=== PATIENT | female | born 1960 | race Caucasian/White ===

== ENCOUNTER 2020-05-18 13:43 | Outpatient (REF) | payer SELFPAY | END 2020-05-18 13:44 | disposition home or self-care (01) | LOC: HO.HAP 13:43 | PROVIDERS: Visit Provider Internal Medicine | DX: Z46.1 Encounter for fitting and adjustment of hearing aid (principal) | CPT/HCPCS: V5267 ==

== ENCOUNTER 2020-05-26 07:40 | Outpatient (REF) | payer OTHER, SELFPAY ==
[2020-05-26 11:46] LABS: Alanine Aminotransferase 9 U/L (0-31); Anion Gap 16 (12-20); Aspartate Amino Transferase 14 U/L (5-31); Blood Urea Nitrogen 15 mg/dL (9-16); Calcium 9.1 mg/dL (8.4-10.2); Carbon Dioxide 26 mmol/L (22-29); Chloride 104 mmol/L (96-108); Cholesterol 151 mg/dL; Estimated Glomerular Filt Rate > 60; Glucose Fasting 131 mg/dL (60-99); HDL Cholesterol 50 mg/dL; LDL Cholesterol Calculated 67 mg/dl; Potassium 3.9 mmol/l (3.3-5.1); Sodium 142 mmol/L (135-145); Triglycerides 171 mg/dL
[2020-05-26 11:57] LABS: Vitamin D 25-OH Total 50.3 ng/mL (>30)
== END 2020-05-26 07:41 | disposition home or self-care (01) ==
LOC: HO.HMGCLDS 07:40
PROVIDERS: PCP Internal Medicine; Visit Provider Internal Medicine
DX: E11.29 Type 2 diabetes mellitus with other diabetic kidney complication (principal); I10 Essential (primary) hypertension; E78.2 Mixed hyperlipidemia; Z78.0 Asymptomatic menopausal state
CPT/HCPCS: 80048; 80061; 82306; 84450; 84460

== ENCOUNTER 2020-06-13 08:58 | Outpatient (REF) | payer OTHER, SELFPAY ==
--- NOTE | 2020-06-14 11:35 | MHC.AU.P13 ---
Adult Audiological Evaluation Date of Visit: 06/13/20 Laborer Steel Handling Used: Not Applicable Reason for Appointment: Audiologic re-evaluation to determine possible change in hearing ability prior to obtaining new right hearing aid. Previous Hearing Test Results: [facility] 04/29/2019 Bilateral moderate to severe sensorineural hearing loss with the right ear being poorer than the left. Medical History: Medical History: Diabetes High Blood Pressure Hearing Instrument History- Right Ear: Vp Publisher Development: [employer] Model: DeNAo V 90 - canal Serial Number: [id number] Battery Size: 312 Warranty: 09/11/2020 Service Plan: Repair Dispensed By: [facility] Date of Fittin12/14/2015 Otoscopy: Right Ear: Partially occluded with cerumen Left Ear: Partially occluded with cerumen Tympanometry: Right Ear: Normal Middle Ear System (Type A) Left Ear: Normal Middle Ear System (Type A) Hearing Evaluation: Transducer(s) Used: Insert Earphones Bone Conduction Method: Conventional Audiometry Stimuli Used: Pure Tones Right Ear: Description of Hearing: Moderately-severe to severe sensorineural hearing loss Left Ear: Description of Hearing: Moderate to moderately-severe sensorineural hearing loss Speech Recognition Threshold (SRT): Method Used: Monitored Live Voice Stimuli Used: Spondee Words Right Ear: 50 dB HL Left Ear: 50 dB HL Word Discrimination: Method: Recorded Lists Word Lists Used: NU-6 Right Ear: 92% at a listening level of 80 dB HL Left Ear: 92% at a listening level of 80 dB HL Comparison: Compared to the most recent evaluation: Hearing is stable. Recommendations: Recommendations: Audiological re-evaluation in one year. Trial with new right amplification is recommended. Medical clearance from a physician is required before fitting. Hearing Aid Fitting will be scheduled when all materials arrive. Recommendations (Other): As patient is concerned her current hearing aid recently required repair, she wants to obtain a new right hearing aid before the current aid stops functioning. Diagnosis: Primary Diagnosis: H90.3 Bilateral Sensorineural Hearing Loss Services Performed: Services Performed: Comprehensive Audiological Evaluation (CPT 06691) Tympanometry (CPT 53699) Signature: Provider: Jhoana Hernandez, [facility]
--- NOTE | 2020-06-14 11:47 | MHC.AU.P13 ---
Hearing Aid Evaluation- Right Ear Date of Visit: 06/13/20 Welt Butter Hand Used: Not Applicable Description of Hearing: Bilateral moderate to severe sensorineural hearing loss Summary: Patient currently has a Right Phonak Virto V 90 -canal hearing aid obtained in 2016. The aid recently required repair and patient wants to obtain a new hearing aid before the current aid stops functioning. Discussed binaural amplification; however, patient continues to want only the right aid and the same style. Discussed if she wants the ITC bluetooth capable and showed the difference in size. Patient decided she wants the smaller non-wireless aid and understands she will not be able to have remote programming performed. Took an impression of the right ear without complication. Hearing Instrument Selection: Right Ear: Veterinarian Helper: Phonak Model: Virto M 90 312 [address] O Battery Size: 312 Color: [place] Process Validation Engineer: Power Recommendations: Recommendations: Fitting will be scheduled when all materials have arrived. A signed medical clearance form is required from a physician. Diagnosis Code(s): Primary Diagnosis: H90.3 Bilateral Sensorineural Hearing Loss Services Performed: Hearing Aid Evaluation and Impression: Assorted Hearing Aid Service: No Charge Visit Signature: Provider: Jhoana Hernandez, CCC-A
== END 2020-06-13 08:59 | disposition home or self-care (01) ==
LOC: HO.SH 08:58
PROVIDERS: PCP Internal Medicine; Visit Provider Internal Medicine
DX: H90.3 Sensorineural hearing loss, bilateral (principal)
CPT/HCPCS: 92557; 92567

== ENCOUNTER 2020-07-08 10:02 | Outpatient (REF) | payer SELFPAY | END 2020-07-08 10:03 | disposition home or self-care (01) | LOC: HO.HAP 10:02 | PROVIDERS: PCP Internal Medicine; Referring Provider Internal Medicine; Visit Provider Internal Medicine | DX: Z46.1 Encounter for fitting and adjustment of hearing aid (principal); H90.3 Sensorineural hearing loss, bilateral | CPT/HCPCS: V5255 ==

== ENCOUNTER 2020-07-20 10:40 | Outpatient (REF) | payer OTHER, SELFPAY | END 2020-07-20 10:41 | disposition home or self-care (01) | LOC: HO.LAB 10:40 | PROVIDERS: Visit Provider Nurse Practitioner Family | DX: R31.0 Gross hematuria (principal) | CPT/HCPCS: 87086 ==

== ENCOUNTER 2020-07-25 10:23 | Outpatient (REF) | payer SELFPAY | END 2020-07-25 10:24 | disposition home or self-care (01) | LOC: HO.HAP 10:23 | PROVIDERS: Visit Provider Internal Medicine | DX: Z13.89 Encounter for screening for other disorder (principal) ==

== ENCOUNTER 2020-08-05 10:30 | Outpatient (REF) | payer OTHER, SELFPAY ==
--- NOTE | 2020-08-05 10:33 | MM_ITS ---
EXAMINATION: MM SCREENING DIGITAL BREAST TOMOSYNTHESIS, BILATERAL CLINICAL INFORMATION: Screening. Asymptomatic. The lifetime risk of breast cancer based on the Tyrer-Cuzick Model is 14%. COMPARISON: Mammography: 07/17/2019, 07/14/2018, 06/24/2017 TECHNIQUE: Digital breast tomosynthesis is performed in both the craniocaudal and mediolateral oblique views along with computer-aided detection (CAD). Synthesized 2D images are generated from the tomosynthesis. Additional exaggerated right CC view is provided. FINDINGS: There are scattered areas of fibroglandular density (ACR BI-RADS breast composition Category b). There are scattered bilateral asymmetries, stable from prior studies. Scattered bilateral benign calcifications are again seen. There is a biopsy clip marker again noted central right breast just lateral to midline. Neither breast shows interval mass or developing density or architectural abnormality. No significant changes. MM/MM tomosynthesis screening BI IMPRESSION: No significant changes from prior studies. ASSESSMENT: BI-RADS 2: Benign RECOMMENDATION: Routine annual mammography screening. This patient's information was entered into a reminder system with a target due date for their next mammogram.
== END 2020-08-05 10:31 | disposition home or self-care (01) ==
LOC: HO.MAMMO 10:30
PROVIDERS: PCP Internal Medicine; Visit Provider Internal Medicine
DX: Z12.31 Encounter for screening mammogram for malignant neoplasm of breast (principal)
CPT/HCPCS: 77063; 77067

== ENCOUNTER 2020-08-17 13:35 | Outpatient (REF) | payer SELFPAY | END 2020-08-17 13:36 | disposition home or self-care (01) | LOC: HO.HAP 13:35 | PROVIDERS: Visit Provider Internal Medicine | DX: Z13.89 Encounter for screening for other disorder (principal) ==

== ENCOUNTER 2020-09-13 10:00 | Outpatient (REF) | payer SELFPAY | END 2020-09-13 10:01 | disposition home or self-care (01) | LOC: HO.HAP 10:00 | PROVIDERS: Visit Provider Internal Medicine | DX: Z13.89 Encounter for screening for other disorder (principal) ==

== ENCOUNTER 2020-11-25 07:39 | Outpatient (REF) | payer OTHER, SELFPAY ==
[2020-11-25 11:52] LABS: Estimated Average Glucose 126 mg/dL
[2020-11-25 12:08] LABS: Creatinine Urine 153.98 mg/dL; Microalbum/Creatinine Ratio Ur 81.8 ug/mg cr
[2020-11-25 12:15] LABS: Vitamin D 25-OH Total 35.3 ng/mL (>30)
[2020-11-25 12:16] LABS: Alanine Aminotransferase 11 U/L (0-31); Anion Gap 14 (12-20); Aspartate Amino Transferase 14 U/L (5-31); Blood Urea Nitrogen 22 mg/dL (9-16); Carbon Dioxide 27 mmol/L (22-29); Chloride 105 mmol/L (96-108); Cholesterol 160 mg/dL; Estimated Glomerular Filt Rate > 60; Glucose Fasting 152 mg/dL (60-99); HDL Cholesterol 53 mg/dL; LDL Cholesterol Calculated 67 mg/dl; Potassium 4.3 mmol/L (3.3-5.1); Sodium 142 mmol/L (135-145); Triglycerides 202 mg/dL
== END 2020-11-25 07:40 | disposition home or self-care (01) ==
LOC: HO.HMGCLDS 07:39
PROVIDERS: PCP Internal Medicine; Visit Provider Internal Medicine
DX: E11.29 Type 2 diabetes mellitus with other diabetic kidney complication (principal); I10 Essential (primary) hypertension; Z78.0 Asymptomatic menopausal state
CPT/HCPCS: 36415; 80048; 80061; 82043; 82306; 83036; 84450; 84460

== ENCOUNTER 2021-06-09 07:53 | Outpatient (REF) | payer OTHER, SELFPAY ==
[2021-06-09 11:48] LABS: Alanine Aminotransferase 15 U/L (0-31); Anion Gap 10 (12-20); Aspartate Amino Transferase 15 U/L (5-31); Blood Urea Nitrogen 19 mg/dL (9-16); Calcium 10.5 mg/dL (8.4-10.2); Carbon Dioxide 29 mmol/L (22-29); Chloride 104 mmol/L (96-108); Cholesterol 166 mg/dL; Estimated Glomerular Filt Rate > 60; Glucose Fasting 152 mg/dL (60-99); HDL Cholesterol 50 mg/dL; LDL Cholesterol Calculated 77 mg/dl; Magnesium 1.7 mg/dL (1.6-2.6); Potassium 4.5 mmol/L (3.3-5.1); Sodium 138 mmol/L (135-145); Triglycerides 199 mg/dL
[2021-06-09 12:14] LABS: Estimated Average Glucose 134 mg/dL; Hemoglobin A1c % 6.3 %
== END 2021-06-09 07:54 | disposition home or self-care (01) ==
LOC: HO.HMGCLDS 07:53
PROVIDERS: PCP Internal Medicine; Visit Provider Internal Medicine
DX: R80.9 Proteinuria, unspecified (principal); I10 Essential (primary) hypertension; E11.29 Type 2 diabetes mellitus with other diabetic kidney complication
CPT/HCPCS: 36415; 80048; 80061; 83036; 83735; 84450; 84460

== ENCOUNTER 2021-07-12 14:59 | Outpatient (REF) | payer SELFPAY | END 2021-07-12 15:00 | disposition home or self-care (01) | LOC: HO.HAP 14:59 | PROVIDERS: Visit Provider Internal Medicine | DX: Z46.1 Encounter for fitting and adjustment of hearing aid (principal); H90.3 Sensorineural hearing loss, bilateral | CPT/HCPCS: V5267 ==

== ENCOUNTER 2021-08-18 16:05 | Outpatient (REF) | payer OTHER, SELFPAY ==
--- NOTE | ~2021-08-18 | MM_ITS ---
EXAMINATION: MM SCREENING DIGITAL BREAST TOMOSYNTHESIS, BILATERAL CLINICAL INFORMATION: Screening. Asymptomatic. The lifetime risk of breast cancer based on the Tyrer-Cuzick Model is 7%. COMPARISON: Mammography: 08/05/2020, 07/17/2019, 07/14/2018 TECHNIQUE: Digital breast tomosynthesis is performed in both the craniocaudal and mediolateral oblique views along with computer-aided detection (CAD). Synthesized 2D images are generated from the tomosynthesis. FINDINGS: There are scattered areas of fibroglandular density (ACR BI-RADS breast composition Category b). Parenchymal pattern is similar to prior studies. Scattered bilateral asymmetries are similar to prior studies. There is a stable smooth oval mass anterior 6:00 left breast. Low left axillary nodes are stable. There is no developing density or interval architectural abnormality. Scattered bilateral benign calcifications are present, overall increased and random/scattered. They are more numerous on the right. There are no focal suspicious groupings or ductal distribution or pleomorphic types. The axilla and skin contours are unremarkable. MM/MM tomosynthesis screening BI IMPRESSION: No significant changes from prior studies. ASSESSMENT: BI-RADS 2: Benign RECOMMENDATION: Routine annual mammography screening. This patient's information was entered into a reminder system with a target due date for their next mammogram.
== END 2021-08-18 16:06 | disposition home or self-care (01) ==
LOC: HO.MAMMO 16:05
PROVIDERS: PCP Internal Medicine; Visit Provider Internal Medicine
DX: Z12.31 Encounter for screening mammogram for malignant neoplasm of breast (principal)
CPT/HCPCS: 77063; 77067

== ENCOUNTER 2021-10-30 07:54 | Outpatient (REF) | payer OTHER, SELFPAY ==
[2021-10-30 12:30] LABS: Alanine Aminotransferase 14 U/L (0-31); Anion Gap 11 (12-20); Aspartate Amino Transferase 14 U/L (5-31); Blood Urea Nitrogen 30 mg/dL (9-16); Calcium 9.5 mg/dL (8.4-10.2); Carbon Dioxide 26 mmol/L (22-29); Chloride 106 mmol/L (96-108); Cholesterol 169 mg/dL; Estimated Glomerular Filt Rate > 60; Glucose Fasting 137 mg/dL (60-99); HDL Cholesterol 49 mg/dL; LDL Cholesterol Calculated 77 mg/dl; Magnesium 1.7 mg/dL (1.6-2.6); Potassium 4.2 mmol/L (3.3-5.1); Sodium 139 mmol/L (135-145); Triglycerides 219 mg/dL
[2021-10-30 12:39] LABS: Creatinine Urine 168.48 mg/dL; Microalbum/Creatinine Ratio Ur 47.4 ug/mg cr
[2021-10-30 12:51] LABS: Vitamin D 25-OH Total 36.6 ng/mL (>30)
[2021-10-30 12:57] LABS: Estimated Average Glucose 140 mg/dL; Hemoglobin A1c % 6.5 %
== END 2021-10-30 07:55 | disposition home or self-care (01) ==
LOC: HO.HMGCLDS 07:54
PROVIDERS: Visit Provider Internal Medicine
DX: E11.29 Type 2 diabetes mellitus with other diabetic kidney complication (principal); E78.2 Mixed hyperlipidemia; E83.52 Hypercalcemia; I10 Essential (primary) hypertension; R80.9 Proteinuria, unspecified
CPT/HCPCS: 36415; 80048; 80061; 82043; 82306; 82330; 83036; 83735; 84450; 84460

== ENCOUNTER 2022-01-04 | Outpatient (REF) | payer SELFPAY | END 2022-01-04 00:01 | disposition home or self-care (01) | LOC: HO.HAP | PROVIDERS: Visit Provider Internal Medicine | DX: Z46.1 Encounter for fitting and adjustment of hearing aid (principal); H90.3 Sensorineural hearing loss, bilateral | CPT/HCPCS: V5267 ==

== ENCOUNTER 2022-01-04 08:47 | Outpatient (REF) | payer OTHER, SELFPAY ==
--- NOTE | 2022-01-10 11:11 | MHC.AU.AHA ---
Adult Audiological Evaluation Date of Visit: 01/04/22 Reason for Appointment: History of hearing loss since childhood. Patient arrives today to determine if there has been a change in hearing. Previous Hearing Test Results: At this clinic on 06/13/2020- Moderate to severe sensorinerual hearing loss bilaterally Medical History: Medical History: Diabetes, High Blood Pressure Hearing Instrument History- Right Ear: Silo Man: PlotWatt Model: PPT Reasearch M90-312 NWO Serial Number: [id number] Battery Size: 312 Repair Warranty: 07/21/2023 Loss and Damage Warranty: 07/21/2023 Dispensed By: [facility] Date of Fittin07/08/2020 Otoscopy: Right Ear: Unremarkable Left Ear: Unremarkable Tympanometry: Right Ear: Type A Normal middle ear function Left Ear: Type A Normal middle ear function Hearing Evaluation: Transducer(s) Used: Insert Earphones Method: Conventional Audiometry Stimuli Used: Pure Tones Right Ear: Description of Hearing: Moderately-severe to severe sensorineural hearing loss Left Ear: Description of Hearing: Moderate to moderately-severe sensorineural hearing loss Speech Recognition Threshold (SRT): Method Used: Recorded Lists Stimuli Used: Spondee Words Right Ear: 60 dBHL Left Ear: 50 dBHL Word Discrimination: Method: Recorded List Word Lists Used: W-22 Right Ear: 88% at 80 dBHL Left Ear: 88% at 75 dBHL Most Comfortable Level (MCL): Right Ear: 80 dBHL Left Ear: 75 dBHL Aided Testing: Aided word discrimination in quiet at 50 dBHL is 88% Aided word discrimination in noise (+10 SNR) at 50 dBHL is 64%. Comparison: Compared to the most recent evaluation: Hearing is stable. Recommendations: Audiological re-evaluation in one year. Hearing aid maintenance performed today. No hearing aid programming changes were made today. Diagnosis: Primary Diagnosis: H90.3 Bilateral Sensorineural Hearing Loss Signature: Provider: Jhoana Haji, CCC-A
== END 2022-01-04 08:48 | disposition home or self-care (01) ==
LOC: HO.SH 08:47
PROVIDERS: Visit Provider Internal Medicine
DX: Z01.118 Encounter for examination of ears and hearing with other abnormal findings (principal); H90.3 Sensorineural hearing loss, bilateral
CPT/HCPCS: 92557; 92567

== ENCOUNTER 2022-06-19 07:38 | Outpatient (REF) | payer OTHER, SELFPAY ==
[2022-06-19 11:59] LABS: Estimated Average Glucose 146 mg/dL; Hemoglobin A1c % 6.7 %
[2022-06-19 12:37] LABS: Alanine Aminotransferase 15 U/L (0-31); Anion Gap 15 (12-20); Aspartate Amino Transferase 15 U/L (5-31); Blood Urea Nitrogen 21 mg/dL (9-16); Carbon Dioxide 27 mmol/L (22-29); Chloride 106 mmol/L (96-108); Cholesterol 187 mg/dL; Estimated Glomerular Filt Rate > 60; Glucose Fasting 150 mg/dL (60-99); HDL Cholesterol 57 mg/dL; LDL Cholesterol Calculated 92 mg/dl; Potassium 4.6 mmol/L (3.3-5.1); Sodium 143 mmol/L (135-145); Triglycerides 194 mg/dL
== END 2022-06-19 07:39 | disposition home or self-care (01) ==
LOC: HO.HMGCLDS 07:38
PROVIDERS: PCP Internal Medicine; Visit Provider Internal Medicine
DX: E11.29 Type 2 diabetes mellitus with other diabetic kidney complication (principal); E78.2 Mixed hyperlipidemia; I10 Essential (primary) hypertension; N95.9 Unspecified menopausal and perimenopausal disorder; R80.9 Proteinuria, unspecified
CPT/HCPCS: 36415; 80048; 80061; 83036; 84450; 84460

== ENCOUNTER 2022-06-25 11:02 | Outpatient (AMB) | payer OTHER, SELFPAY ==
--- OUTSIDE RECORDS SUMMARY | 2022-06-25 11:04 | XMS_ITS | Continuity of Care Document ---
:1960 Author Organization [facility] Address [address] [place] [address]- Care Team Providers Name Role Phone Dany HALL, Oumou Montelongo Primary Care Physician Encounter [facility] Date(s): 01/08/21 - 01/09/[address] [address]- Encounter Diagnosis Hypertension (Final) - 01/09/21 Discharge Disposition: A-D/C Home Attending Physician: Leigh Otero MD Admitting Physician: Leigh Otero MD Referring Physician: Not on Staff, Referring MD Allergies, Adverse Reactions, Alerts Substance Reaction Severity Status sulfa drugs rash, itchy Persistent Severe Active Immunizations Given and Recorded Vaccine Date Status Refusal Reason pneumococcal 23-valent vaccine 06/20/09 Given Medications Diovan 160 mg oral tablet 1 tablet = 160 mg, By Mouth, Daily at bedtime, Maintenance, 02/11/14 9:24:45, Tablet Start Date: 02/11/14 Status: Orderedgemfibrozil 600 mg oral tablet 1 tablet = 600 mg, By Mouth, Daily, Maintenance, 02/11/14 9:28:31, Tablet Start Date: 02/11/14 Status: Orderedglyburide 5 mg oral tablet 2 tablets, By Mouth, 2 times a day, Maintenance, 02/11/14 9:27:34, Tablet Start Date: 02/11/14 Status: Orderedibuprofen 600 mg oral tablet 1 tablet = 600 mg, By Mouth, Every 6 hours, # 40 tablet, 0 Refills, Maintenance, 02/24/14 11:24:13, Tablet Start Date: 02/24/14 Status: OrderedJanuvia 100 mg oral tablet 1 tablet = 100 mg, By Mouth, Daily, Maintenance, 02/11/14 9:26:59, Tablet Start Date: 02/11/14 Status: Orderedmagnesium oxide 400 mg oral tablet 1 tablet = 400 mg, By Mouth, 2 times a day, Maintenance, 02/11/14 9:29:09, Tablet Start Date: 02/11/14 Status: Orderedmetformin 1000 mg oral tablet 2 tablets, By Mouth, 2 times a day, Maintenance, 02/11/14 9:26:05, Tablet Start Date: 02/11/14 Status: Orderedmetoprolol 25 mg oral tablet 1 tablet = 25 mg, By Mouth, Daily, Maintenance, 02/11/14 9:24:07, Tablet Start Date: 02/11/14 Status: OrderedMultivitamin 1 tablet, By Mouth, Daily, 0 Refills, Maintenance, 02/11/14 9:29:35 Start Date: 02/11/14 Status: OrderedPremarin Vaginal 0.625 mg/gm cream with applicator See Instructions, 1 Gm Vaginally Daily for 2 weeks then twice weekly, # 42 Gm, 5 Refills, Maintenance, 04/22/14 14:27:06, 1 Gm Vaginally Daily for 2 weeks then twice weekly Start Date: 04/22/14 Status: OrderedPrilosec 20 mg oral enteric coated capsule 1 capsule = 20 mg, By Mouth, Daily, Maintenance, 02/11/14 9:30:54, EC Capsule Start Date: 02/11/14 Status: OrderedSenokot S 50 mg-187 mg oral tablet 1 tablet, By Mouth, Daily at bedtime, # 30 tablet, 3 Refills, Maintenance, 02/24/14 11:25:03, Tablet Start Date: 02/24/14 Status: Ordered Problem List Condition Effective Dates Status Health Status Informant Primary malignant neoplasm of Active endometrium(Confirmed) Vital Signs Most recent to oldest 1 2 3 [Reference Range]: Weight 78.9 kg 78.9 kg 78.9 kg (01/08/21 11:18 PM) (01/08/21 11:15 PM) (01/08/21 8 :21 PM) Oxygen Saturation [94-100 %] 99 % 96 % 98 % (01/08/21 11:18 PM) (01/08/21 11:15 PM) (01/08/21 8 :21 PM) Pulse Rate [55-90 bpm] 58 bpm 87 bpm 100 bpm (01/08/21 11:18 PM) (01/08/21 11:15 PM) *H* (01/08/21 8:21 PM ) Blood Pressure [90-138/55-84 107/70 mm Hg 157/66 mm Hg 187 /93 mm Hg mm Hg] (01/08/21 11:18 PM) *H* *H* (01/08/21 11:15 PM) (01/08/21 8:21 PM) Respiratory Rate [16-30 18 br/min 16 br/min 16 br/mi n br/min] (01/08/21 11:18 PM) (01/08/21 11:15 PM) (01/08/21 8 :21 PM) Temperature [96.8-100.4 DegF] 97.9 DegF 98.3 DegF 98 .9 DegF (01/08/21 11:18 PM) (01/08/21 8:21 PM) (01/08/21 7: 23 PM) Mode of Delivery (Oxygen) Room air Room air Room a ir (01/08/21 11:18 PM) (01/08/21 11:15 PM) (01/08/21 8 :21 PM) Blood pressure sites Arm, right Arm, left Arm, left (01/08/21 11:18 PM) (01/08/21 11:15 PM) (01/08/21 8 :21 PM) Temperature Route Oral Oral Oral (01/08/21 11:18 PM) (01/08/21 8:21 PM) (01/08/21 7: 23 PM) Dry Weight 78.9 kg 78.9 kg 78.9 kg (01/08/21 11:18 PM) (01/08/21 11:15 PM) (01/08/21 8 :21 PM) Weight Obtained Via Standing scale (01/08/21 7:25 PM) Dry Weight Obtained Via Standing scale (01/08/21 7:25 PM) Social History Social History Type Response Smoking Status Never smoker entered on: 10/21/14 Sex
--- NOTE | 2022-06-25 11:05 | A.OFFPC_ITS ---
Vital Signs 06/25/22 11:23 Height 5 ft 4 in Weight 173 lb BMI 29.7 BP 158/80 H Blood Pressure Location Rt brachial Position Sitting Pulse 81 Pulse Source Pulse Oximeter Pulse Oximetry (%) 100 Oxygen Delivery Method Room Air Intake Visit Reasons: annual PE Intake Note: Pt is here today for her Physical Exam Allergies Sulfa (Sulfonamide Antibiotics) [SULFA (SULFONAMIDE ANTIBIOTICS)] Allergy (Intermediate, Verified 04/22/23 14:03) HIVES Medication List - Last Reconciled 06/25/22 by Oumou Saenz MD blood sugar diagnostic ([employer] Ultra Blue Test Strip) Check blood sugar twice a day before meals; cholecalciferol (vitamin D3) 25 mcg PO DAILY dulaglutide (Trulicity) 1.5 mg (0.5 mL) subcut QWEEK glyburide 10 mg (2 x 5 mg) PO BID 90 days losartan 100 mg PO DAILY magnesium 250 mg PO BID metformin 1,000 mg PO BID metoprolol succinate ER 50 mg PO QPM omeprazole 20 mg PO .QOD rosuvastatin 10 mg PO .QOD Tobacco use date assessed: 06/25/22 HPI annual PE HPI Details 61-year-old lady with hypertension, history of IBS and GERD, history of uterine cancer, has diabetes mellitus with microalbuminuria, mixed dyslipidemia, here today for her physical exam. She is up-to-date with her cervical cancer screening and pelvic exam, sees Dr. Johnson, with last Pap smear done 06/17/2019 with atrophy of mucosa and negative for squamous intraepithelial lesion and malignancy. Patient is status post hysterectomy with no cervix. She is up-to-date with her screening colonoscopy done by Dr. Chicas in 2016, to be repeated again in 2026. Last mammogram was earlier this year with benign findings. ENTERED: 06/19/22 -[address]: ORDERED: Met Pro f Fast, AST, ALT, Lipid Panel Test Result Flag Referen ce Sit e Sodium 143 135-145 mmol/L Potassium 4 .6 3.3-5.1 mm ol/L CL 106 96-108 mmol/ L CO2 27 22-29 mmol/L Gap 15 12-20 BUN 21 H 9-16 mg/dL Creat 0.83 0. 5-1.4 mg/dL EGFR > 60 NOTE: Fo r -Micronesian individuals, mult iply the result by 1.2 10. Chronic Kidney Di sease: Estimated GFR < 60 mL/min/1. 73m2 Severe Kidney Disease: Estimated GFR < 15 mL/min/1.73m2 F BS 15 0 H 60-99 mg/dL A fasting glucos e of 126 mg/dl or greater on more th an one occa felix is considered diagnostic of annia betes. CA 10.0 8 .4-10.2 mg/dL AST (GOT) 15 5-3 1 U/L ALT (GPT) 15 0-31 U/L Triglyceride 194 mg/dL Desirable Tr iglyceride: less than 150 mg/d L Borderlin e High Triglycerid e 150-199 mg/dL High Triglyc eride: 200-499 mg/dL Very High Trigl yceride: gre ater than or equal to 5OO mg/dL C hol 18 7 mg/dL Desirable Choles terol: less than 200 mg/dL Borderline Hi gh Cholesterol: 2 00-239 mg/dL High Cholesterol : grea ter than 239 mg/dL LDL Calculated 92 mg/dl Desirable LD L: less than 100 m g/dL Near O ptimal/Above Optim al LDL: 110-129 m g/dL Border line High LDL: 130-159 m g/dL High L DL: 160-189 m g/dL Very H igh LDL: greater t olivo or equal to 190 mg/dL HDL 57 mg/dL D esirable HDL: gre ater than 40 mg/dL Laboratory Tests 06/19/22 07:44 Hemoglobin A1c % 6.7 PFSH Medical History (Updated 06/15/23 @ 01:18 by Oumou Saenz MD) Hypomagnesemia Irritable bowel syndrome with diarrhea Surgical menopause GERD (gastroesophageal reflux disease) Ureteral calculus, left Mixed dyslipidemia Diabetes mellitus with microalbuminuria, without long-term current use of insulin History of uterine cancer IBS (irritable bowel syndrome) Diabetes mellitus with kidney complication Essential hypertension Swine flu Hearing impaired Surgical History Status post laser lithotripsy of ureteral calculus History of total abdominal hysterectomy and bilateral salpingo-oophorectomy History of section Hx of cholecystectomy Family History Father Cancer of prostate Mother No problems noted. Sister Mental health disorder Social History Housing: House Alcohol intake: former Patient Tobacco Use Status: Never used Tobacco e-Cigarette/Vaping Use: Never Used Second Hand Smoke Exposure: No service: No Current occupational status: employed Cognitive needs: No Hearing needs: No Vision needs: Yes Questionnaire PHQ-9 Over the last 2 weeks, how often have you been bothered by any of the following problems? 1. Little interest or pleasure in doing things: not at all 2. Feeling down, depressed, or hopeless: not at all 3. Trouble falling or staying asleep, or sleeping too much: several days 4. Feeling tired or having little energy: several days 5. Poor appetite or overeating: not at all 6. Feeling bad about yourself - or that you are a failure or have let yourself or your family down: not at all 7. Trouble concentrating on things, such as reading the newspaper or watching television: not at all 8. Moving or speaking so slowly that other people could have noticed. Or the opposite - being so fidgety or restless that you have been moving around a lot more than usual: not at all 9. Thoughts that you would be better off or of hurting yourself in some way: not at all Total score: 2 Depression Screening Interpretation: Negative 72336 - PHQ-9 Billing: Yes Source: Developed by Drs. Abran Dumont, Geri Matson, Sid Pond and colleagues, with an educational nohemi from [employer]. Thrive Questionnaire Declines Thrive assessment: No Date Thrive assessed: 06/25/22 I am a: Patient What is your living situation today?: I have a steady place to live Within the past 12 months, did the food you bought not last and you didn't have the money to get more?: Never true Within the past 12 months, did you worry whether your food would run out before you got money to buy more?: Never true Do you have trouble paying for medicines?: No Do you have trouble getting transportation to medical appointments?: No Do you have trouble paying your heating and electricity bill?: No Do you have trouble taking care of your child, family member or friend?: No Do you have trouble with day-to-day activities such as bathing, preparing meals, shopping, managing finances, etc.?: No Are you currently unemployed and looking for a job?: No Are you interested in more education?: No AUDIT C Alcohol Use Questionnaire (AUDIT-C) 1. How often do you have a drink containing alcohol?: Never Total Score: 0 WILFREDO-7 AMB Questionnaire WILFREDO-7 Date WILFREDO - 7 assessed: 06/25/22 Feeling nervous, anxious, or on edge: 0 = Not at all Not being able to stop or control worryin = Not at all Worrying too much about different things: 0 = Not at all Trouble relaxin = Several days Being so restless that it is hard to sit still: 1 = Several days Becoming easily annoyed or irritable: 0 = Not at all Feeling afraid as if something awful might happen: 0 = Not at all Total WILFREDO-7 score (0-4 normal; 5-9 mild; 10-14 moderate; 15-21 severe): 2 Source: Developed by Drs. Abran Dumont, Geri Matson, Sid Pond and colleagues, with an educational nohemi from [employer]. WILFREDO-7 Assessment Billing WILFREDO-7 Assessment Tool: WILFREDO-7 Assessment 68518 Review of Systems Const Denies body aches, Denies fatigue, Denies fever(s), Denies headache(s) and Denies weakness Eyes Details: sees Dr. Flynn for her diabetes retinopathy screening and routine eye exam Denies change in vision and Denies eye discharge ENT Denies headache(s), Denies nasal congestion, Denies nasal discharge and Denies sore throat Card Denies chest pain, Denies lightheadedness, Denies palpitations and Denies dyspnea Resp Denies chest congestion, Denies cough and Denies dyspnea GI Denies abdominal pain, Denies change in bowel habits and Denies heartburn Denies urinary frequency, Denies dysuria and Denies urinary urgency Musc Reports no additional complaints Skin/Breast Denies lesions and Denies rash Neuro Denies headache(s) and Denies weakness Psych Reports no additional complaints Endo Denies fatigue, Denies polydipsia, Denies polyuria and Denies palpitations Stu/Lymph Reports no additional complaints Aller/Immun Reports no additional complaints Physical exam (Primary Care) Vital Signs: Last Vital Signs Pulse 81 06/25/22 11:23 BP 158/80 H 06/25/22 11:23 Pulse Ox 100 06/25/22 11:23 Oxygen Delivery Method Room Air 06/25/22 11:23 BMI result Body Mass Index 29.7 Tobacco/Smoking Status: Tobacco use Status Tobacco use date assessed 06/25/22 06/25/22 11:07 Patient Tobacco Use Status Never used Tobacco 06/25/22 11:07 e-Cigarette/Vaping Use Never Used 06/25/22 11:07 PHQ-9: PHQ-9 Score PHQ-9: Total score 3 09/13/22 13:12 Depression Screening Interpretation: Negative Thrive Assessment: Date of Thrive Assessment Date Thrive assessed 06/25/22 06/25/22 11:26 Const General: comfortable and no acute distress Orientation/consciousness: patient oriented x3 Limitations: no limitations HENMT Ears: hearing grossly normal bilaterally, external ears normal, TM's normal bilaterally and EAC's normal General nose exam: Normal external nose present, Normal nasal mucous membranes and turbinates present and No nasal discharge present Mouth: Normal oral and palatal mucosa present, oropharynx normal and moist mucous membranes Eyes General: appearance normal, both eyes and all related structures Neck Neck: Yes full ROM, Yes no lymphadenopathy and Yes supple Chest Breast/axilla palpation: normal palpation of the breasts Resp Effort & Inspection: normal respiratory effort and able to speak in complete sentences Auscultation: clear to auscultation bilaterally Cardio Rate: regular rate Rhythm: regular rhythm Heart sounds: S1 normal heart sound present and S2 normal heart sound present GI Inspection: Yes normal to inspection Palpation (GI): Soft to palpation, nontender and no masses Auscultation: normal bowel sounds General: Yes no CVA tenderness Back/Spine/Pelvis Back: no CVA tenderness and No back tenderness Skin General skin exam: no rashes or lesions noted Neuro General: patient oriented x3, gait normal, tone normal, moves all extremities, Normal light touch and pain sensation and no focal motor deficits Cognition (Neuro): normal cognition Gait exam (Neuro): Normal gait present Motor exam (neuro): 5/5 motor strength present throughout Extrem General: Yes full ROM, Yes no joint enlargement, Yes no pedal edema, Yes no calf tenderness and Yes normal gait Psych Appearance: grossly normal Mental Status: mental status grossly normal Speech and movement: Normal speech and movement present Affect: normal affect Attitude: cooperative Thought process: Normal thought process present Assessment and Plan Assessment & Plan (1) Annual visit for general adult medical examination with abnormal findings: Code(s): Z00.01 - Encounter for general adult medical examination with abnormal findings Plan: Reviewed recent fasting labs with patient.. Recommended dental visit every 6 months and regular eye exams. Take adequate calcium in diet and vitamin-D 3 at 2000 IU per cap once a day, in addition to weight-bearing exercises to help maintain good muscle tone and weight control. Instructed to do self-breast exam, and continue to get yearly mammogram, currently up-to-date. Up-to-date with her colonoscopy screening, and no longer gets Pap smears due to absence of cervix. She is up-to-date with her flu vaccination,, reminded to get her COVID booster vaccine, up-to-date with pneumonia vaccination and Tdap. (2) Mixed dyslipidemia: Code(s): E78.2 - Mixed hyperlipidemia Plan: Continue with rosuvastatin 10 mg taken 1 tablet every other day, in addition to adhering to low-cholesterol diet and getting regular exercise. Check again another fasting lipid panel in 3 months (3) Diabetes mellitus with microalbuminuria, without long-term current use of insulin: Code(s): E11.29 - Type 2 diabetes mellitus with other diabetic kidney complication; R80.9 - Proteinuria, unspecified Qualifiers: Diabetes mellitus type: type 2 Qualified Code(s): E11.29 - Type 2 diabetes mellitus with other diabetic kidney complication; R80.9 - Proteinuria, unspecified Plan: Diabetes stable controlled present treatment, continue with metformin 1000 mg 1 tablet twice a day, glyburide 10 mg twice a day and stressed importance of adhering to recommended diabetic diet and getting regular exercise. Follow-up again in September 2022 (4) Essential hypertension: Code(s): I10 - Essential (primary) hypertension Plan: Blood pressure mildly elevated today, has been out of her metoprolol, refill sent for metoprolol succinate ER 50 mg 1 tablet at night, continue with losartan-HCTZ 100-25 mg tablet daily and amlodipine 5 mg once a day . Reinforced importance of following a low sodium diet, getting regular exercise, and lowering stress levels. Return to clinic in a week to have nurse navigator check blood pressure (5) Surgical menopause: Code(s): E89.40 - Asymptomatic postprocedural ovarian failure Plan: Ordered a bone density scan as well as vitamin-D level check Orders: Orders Lipid Panel 09/26/22 E89.40 - Asymptomatic postprocedural ovarian failure, E78.2 - Mixed hyperlipidemia, E11.29 - Type 2 diabetes mellitus with other diabetic kidney complication, R80.9 - Proteinuria, unspecified, I10 - Essential (primary) hypertension, E83.42 - Hypomagnesemia Microalbumin, Random (w Creat) 09/26/22 E89.40 - Asymptomatic postprocedural ovarian failure, E78.2 - Mixed hyperlipidemia, E11.29 - Type 2 diabetes mellitus with other diabetic kidney complication, R80.9 - Proteinuria, unspecified, I10 - Essential (primary) hypertension, E83.42 - Hypomagnesemia Aspartate Amino Transferase 09/26/22 E89.40 - Asymptomatic postprocedural ovarian failure, E78.2 - Mixed hyperlipidemia, E11.29 - Type 2 diabetes mellitus with other diabetic kidney complication, R80.9 - Proteinuria, unspecified, I10 - Essential (primary) hypertension, E83.42 - Hypomagnesemia Hemoglobin A1c 09/26/22 E89.40 - Asymptomatic postprocedural ovarian failure, E78.2 - Mixed hyperlipidemia, E11.29 - Type 2 diabetes mellitus with other diabetic kidney complication, R80.9 - Proteinuria, unspecified, I10 - Essential (primary) hypertension, E83.42 - Hypomagnesemia Vitamin D 25-OH Total 09/26/22 E89.40 - Asymptomatic postprocedural ovarian failure, E78.2 - Mixed hyperlipidemia, E11.29 - Type 2 diabetes mellitus with other diabetic kidney complication, R80.9 - Proteinuria, unspecified, I10 - Essential (primary) hypertension, E83.42 - Hypomagnesemia XR DEXA axial skeleton 06/25/22 E89.40 - Asymptomatic postprocedural ovarian failure Basic Metabolic Panel Fasting 09/26/22 E89.40 - Asymptomatic postprocedural ovarian failure, E78.2 - Mixed hyperlipidemia, E11.29 - Type 2 diabetes mellitus with other diabetic kidney complication, R80.9 - Proteinuria, unspecified, I10 - Essential (primary) hypertension, E83.42 - Hypomagnesemia Alanine Aminotransferase 09/26/22 E89.40 - Asymptomatic postprocedural ovarian failure, E78.2 - Mixed hyperlipidemia, E11.29 - Type 2 diabetes mellitus with other diabetic kidney complication, R80.9 - Proteinuria, unspecified, I10 - Essential (primary) hypertension, E83.42 - Hypomagnesemia Magnesium 09/26/22 E89.40 - Asymptomatic postprocedural ovarian failure, E78.2 - Mixed hyperlipidemia, E11.29 - Type 2 diabetes mellitus with other diabetic kidney complication, R80.9 - Proteinuria, unspecified, I10 - Essential (primary) hypertension, E83.42 - Hypomagnesemia Medications: Changed From rosuvastatin 10 mg PO .QOD To rosuvastatin 10 mg PO Q2D 45 tabs 3RF 90 days From metformin 1,000 mg PO BID 180 tabs 1RF To metformin 1,000 mg PO BID 180 tabs 3RF Refilled glyburide 10 mg (2 x 5 mg) PO BID 360 tabs 3RF 90 days metoprolol succinate ER 50 mg PO QPM 90 tabs 3RF I10 - Essential (primary) hypertension Coding Level of Care Code Est Pt Prev Care 40-64y(95314) Diagnoses Annual visit for general adult medical examination with abnormal findings Z00.01 Mixed dyslipidemia E78.2 Type 2 diabetes mellitus with microalbuminuria, without long-term current use of insulin E11.29; R80.9 Diabetes mellitus type: type 2 Essential hypertension I10 Surgical menopause E89.40 Additional Codes WILFREDO-7 Assessment Billing - WILFREDO-7 Assessment Tool: WILFREDO-7 Assessment 10195 ([id number])
[2022-06-25 11:23] VITALS: BP 158/80; PULSE 81; O2SAT 100; BMI 29.7
== END 2022-06-25 13:11 | disposition home or self-care (01) ==
LOC: HO.HMGC 11:02
PROVIDERS: PCP Internal Medicine; Visit Provider Internal Medicine
DX: Z00.00 Encounter for general adult medical examination without abnormal findings (principal); E78.2 Mixed hyperlipidemia; E11.29 Type 2 diabetes mellitus with other diabetic kidney complication; R80.9 Proteinuria, unspecified; I10 Essential (primary) hypertension; E89.40 Asymptomatic postprocedural ovarian failure
CPT/HCPCS: 99396

== ENCOUNTER 2022-08-24 14:41 | Outpatient (REF) | payer OTHER, SELFPAY ==
--- NOTE | ~2022-08-24 | MM_ITS ---
EXAMINATION: MM SCREENING DIGITAL BREAST TOMOSYNTHESIS, BILATERAL CLINICAL INFORMATION: Screening. Asymptomatic. The lifetime risk of breast cancer based on the Tyrer-Cuzick Model is 10%. COMPARISON: Mammography: 08/18/2021, 08/05/2020, 07/17/2019 TECHNIQUE: Digital breast tomosynthesis is performed in both the craniocaudal and mediolateral oblique views along with computer-aided detection (CAD). Synthesized 2D images are generated from the tomosynthesis. FINDINGS: There are scattered areas of fibroglandular density (ACR BI-RADS breast composition Category b). The parenchymal pattern is similar to prior studies and there is no developing density or interval significant mass or architectural abnormality. Smooth oval mass anterior 6:00 left breast is again noted. There are scattered bilateral benign coarse and round calcifications. Biopsy clip marker again seen central mid right breast. The axilla and skin contours are unremarkable. There are interval tightly grouped heterogeneous calcifications anterior upper right breast. Additional increased loosely grouped round calcifications are also present mid upper right breast which appeared dispersed on the ML view. Patient will be recalled for additional magnification views to fully characterize. MM/MM tomosynthesis screening BI IMPRESSION: Right: -Interval tightly grouped heterogeneous calcifications anterior upper breast. Left: -No significant changes from prior exam. ASSESSMENT: BI-RADS 0: Incomplete - Need Additional Imaging Evaluation RECOMMENDATION: 1. Additional views of the right breast (magnification CC, magnification ML). 2. Radiology department staff will contact the patient for additional imaging. This patient's information was entered into a reminder system with a target due date for their next mammogram.
--- NOTE | ~2022-08-24 | MM_ITS ---
EXAMINATION: BONE DENSITOMETRY CLINICAL INDICATION: Asymptomatic postprocedural ovarian failure. COMPARISON: None (current study represents initial baseline exam). TECHNIQUE: Using a [email or web address] DXA System (software version: 13.1) manufactured by [employer], dual-energy x-ray absorptiometry was performed of the lumbar spine and left hip. The images are of good technical quality. Summary results are attached. FINDINGS: AP SPINE L1-L4: BMD 1.588 g/cm2, Z-score 4.2, T-score 3.4, normal. LEFT FEMUR, NECK: BMD 1.232 g/cm2, Z-score 2.3, T-score 1.4, normal. LEFT FEMUR, TOTAL: BMD 1.365 g/cm2, Z-score 3.4, T-score 2.8, normal. IDENTIFIED RISK FACTORS: Menopause, low calcium intake, hysterectomy, bilateral oophorectomy. HISTORY OF FRACTURE: None listed. MEDICATIONS: Vitamin D. MM/XR DEXA axial skeleton IMPRESSION: 1. DIAGNOSIS: Normal bone density based on the lowest T-score value of 1.4 in the femoral neck applying World Health Organization criteria. 2. 10-YEAR FRACTURE RISK PREDICTION, FRAX: According to the guidelines, FRAX calculation should only be performed on patients in the osteopenia bone density category. Therefore, FRAX was not performed on this patient. 3. Treatment Recommendations: NOF guidelines recommend consideration for treatment in postmenopausal women and men age 50 and older presenting with the following: -A hip or vertebral (clinical or morphometric) fracture. -T-score less than or equal to -2.5 at the femoral neck or spine after appropriate evaluation to exclude secondary causes. -Low bone mass at the hip or spine and a 10-year fracture probability by FRAX of greater than or equal to 3% for hip fracture or greater than or equal to 20% for major osteoporotic fracture based on the [place] adapted WHO algorithm. 4. Other Recommendations: All treatment decisions require clinical judgment and consideration of individual patient factors, including patient preferences, comorbidities, previous drug use, risk factors not captured in the FRAX model (e.g. frailty, falls, vitamin D deficiency, increased bone turnover, interval significant decline in bone density) and possible under or overestimation of fracture risk by FRAX. FUTURE SCAN RECOMMENDATION: People with diagnosed cases of osteoporosis or at high risk for fracture should have regular bone mineral density tests. For patients eligible for Medicare, routine testing is allowed once every 2 years. The testing frequency can be increased to one year for patients who have rapidly progressing disease, those who are receiving or discontinuing medical therapy to restore bone mass, or have additional risk factors.
== END 2022-08-24 14:42 | disposition home or self-care (01) ==
LOC: HO.MAMMO 14:41
PROVIDERS: PCP Internal Medicine; Visit Provider Internal Medicine
DX: Z12.31 Encounter for screening mammogram for malignant neoplasm of breast (principal); Z13.820 Encounter for screening for osteoporosis; E89.40 Asymptomatic postprocedural ovarian failure; Z78.0 Asymptomatic menopausal state
CPT/HCPCS: 77063; 77067; 77080

== ENCOUNTER 2022-09-17 12:52 | Outpatient (REF) | payer OTHER, SELFPAY ==
--- NOTE | ~2022-09-17 | MM_ITS ---
EXAMINATION: MM DIAGNOSTIC DIGITAL MAMMOGRAPHY, RIGHT CLINICAL INFORMATION: Recall from screening for interval tightly grouped calcifications anterior upper outer right breast. COMPARISON: Mammography: 08/24/2022, 08/18/2021, 08/05/2020 TECHNIQUE: Digital mammography is performed in the following views: Magnification CC x2, magnification ML. FINDINGS: There are scattered areas of fibroglandular density (ACR BI-RADS breast composition Category b). Additional magnification views show tightly grouped relatively coarse anterior upper breast. Calcifications are arranged in a circular fashion on the CC view. The appearance is suggestive of fibroadenomatous calcifications. There are some other scattered benign round coarse calcifications in the right breast. Results are discussed with the patient at time of visit. MM/MM added views RT IMPRESSION: Grouped calcifications anterior upper right breast have a probable benign appearance, possibly fibroadenomatous change. ASSESSMENT: BI-RADS 3: Probably Benign RECOMMENDATION: Diagnostic right mammography in 6 months. This patient's information was entered into a reminder system with a target due date for their next mammogram.
== END 2022-09-17 12:53 | disposition home or self-care (01) ==
LOC: HO.MAMMO 12:52
PROVIDERS: Visit Provider Internal Medicine
DX: R92.1 Mammographic calcification found on diagnostic imaging of breast (principal)
CPT/HCPCS: 77065

== ENCOUNTER 2022-09-26 07:48 | Outpatient (REF) | payer OTHER, SELFPAY ==
[2022-09-26 11:49] LABS: Estimated Average Glucose 171 mg/dL; Hemoglobin A1c % 7.6 %
[2022-09-26 12:25] LABS: Alanine Aminotransferase 12 U/L (0-31); Anion Gap 14 (12-20); Aspartate Amino Transferase 15 U/L (5-31); Blood Urea Nitrogen 23 mg/dL (9-16); Calcium 10.4 mg/dL (8.4-10.2); Carbon Dioxide 29 mmol/L (22-29); Chloride 103 mmol/L (96-108); Cholesterol 169 mg/dL; Estimated Glomerular Filt Rate > 60; Glucose Fasting 176 mg/dL (60-99); HDL Cholesterol 51 mg/dL; LDL Cholesterol Calculated 79 mg/dl; Potassium 4.7 mmol/L (3.3-5.1); Sodium 141 mmol/L (135-145); Triglycerides 196 mg/dL
[2022-09-26 12:52] LABS: Creatinine Urine 188.74 mg/dL
[2022-09-26 15:24] LABS: Magnesium 1.4 mg/dL (1.6-2.6)
== END 2022-09-26 07:49 | disposition home or self-care (01) ==
LOC: HO.HMGCLDS 07:48
PROVIDERS: Visit Provider Internal Medicine
DX: E11.29 Type 2 diabetes mellitus with other diabetic kidney complication (principal); E89.40 Asymptomatic postprocedural ovarian failure; E78.2 Mixed hyperlipidemia; R80.9 Proteinuria, unspecified; I10 Essential (primary) hypertension; E83.42 Hypomagnesemia; Z78.0 Asymptomatic menopausal state
CPT/HCPCS: 36415; 80048; 80061; 82043; 82306; 83036; 83735; 84450; 84460

== ENCOUNTER 2022-09-27 15:16 | Outpatient (AMB) | payer OTHER, SELFPAY ==
[2022-09-27 15:28] VITALS: BP 150/70; PULSE 92; O2SAT 98; BMI 29.8
--- NOTE | 2022-09-27 15:28 | MHC.PC.OV ---
Vital Signs 09/27/22 15:28 Height 5 ft 4 in Weight 174 lb BMI 29.8 BP 150/70 H Blood Pressure Location Rt brachial Position Sitting Pulse 92 Pulse Source Pulse Oximeter Pulse Oximetry (%) 98 Oxygen Delivery Method Room Air Intake Visit Reasons: BP Intake Note: Pt is here today to f/u b/p Allergies Sulfa (Sulfonamide Antibiotics) [SULFA (SULFONAMIDE ANTIBIOTICS)] Allergy (Intermediate, Verified 04/22/23 14:03) HIVES Medication List - Last Reconciled 09/27/22 by Oumou Saenz MD blood sugar diagnostic ([employer] Ultra Blue Test Strip) Check blood sugar twice a day before meals; cholecalciferol (vitamin D3) 25 mcg PO DAILY dulaglutide (Trulicity) 1.5 mg (0.5 mL) subcut QWEEK glyburide 10 mg (2 x 5 mg) PO BID 90 days losartan-hydrochlorothiazide 100-25 mg 1 tab PO DAILY magnesium 250 mg PO BID metformin 1,000 mg PO BID metoprolol succinate ER 50 mg PO QPM omeprazole 20 mg PO .QOD rosuvastatin 10 mg PO Q2D 90 days Tobacco use date assessed: 09/27/22 HPI BP HPI Details 62 year old lady with hypertension, history of IBS and GERD, history of uterine cancer, has diabetes mellitus with microalbuminuria, mixed dyslipidemia, here today forfollow up of hwe blood pressure , currently taking losartan-HCTZ 100-25 mg tablet taken once a day in addition to metoprolol succinate ER 50 mg 1 tablet at night. Denies chest pain or headache, but complains of intermittent episodes of abdominal bloating accompanied by cramping, relieved with passage soft stools [facility] Medical History (Updated 06/15/23 @ 01:49 by Oumou Saenz MD) Hypomagnesemia Irritable bowel syndrome with diarrhea Surgical menopause GERD (gastroesophageal reflux disease) Ureteral calculus, left Mixed dyslipidemia Diabetes mellitus with microalbuminuria, without long-term current use of insulin History of uterine cancer IBS (irritable bowel syndrome) Diabetes mellitus with kidney complication Essential hypertension Swine flu Hearing impaired Surgical History Status post laser lithotripsy of ureteral calculus History of total abdominal hysterectomy and bilateral salpingo-oophorectomy History of section Hx of cholecystectomy Family History Father Cancer of prostate Mother No problems noted. Sister Mental health disorder Social History Housing: House Alcohol intake: former Patient Tobacco Use Status: Never used Tobacco e-Cigarette/Vaping Use: Never Used Second Hand Smoke Exposure: No service: No Current occupational status: employed Cognitive needs: No Hearing needs: No Vision needs: Yes Questionnaire PHQ-9 Over the last 2 weeks, how often have you been bothered by any of the following problems? Depression Screening Interpretation: Negative Source: Developed by Drs. Abran Dumont, Geri Matson, Sid Pond and colleagues, with an educational nohemi from [employer]. Thrive Questionnaire Date Thrive assessed: 06/25/22 AUDIT C Alcohol Use Questionnaire (AUDIT-C) 1. How often do you have a drink containing alcohol?: Monthly or less 2. How many drinks containing alcohol do you have on a typical day when you are drinking?: 1 or 2 3. How often do you have six or more drinks on one occasion?: Never Total Score: 1 WILFREDO-7 AMB Questionnaire WILFREDO-7 Date WILFREDO - 7 assessed: 06/25/22 Source: Developed by Drs. Abran Dumont, Geri Matson, Sid Pond and colleagues, with an educational nohemi from [employer]. Review of Systems Const Denies fatigue, Denies headache(s) and Denies weakness Eyes Denies change in vision ENT Denies headache(s) and Denies nasal congestion Card Denies chest pain, Denies lightheadedness, Denies palpitations and Denies dyspnea Resp Denies chest congestion, Denies cough and Denies dyspnea GI Denies abdominal pain, Denies change in bowel habits and Denies heartburn Musc Reports no additional complaints Skin/Breast Denies lesions and Denies rash Neuro Denies headache(s) and Denies weakness Endo Denies fatigue, Denies polydipsia, Denies polyuria and Denies palpitations Physical exam (Primary Care) Vital Signs: Last Vital Signs Pulse 92 09/27/22 15:28 BP 150/70 H 09/27/22 15:28 Pulse Ox 98 03/02/23 15:28 Oxygen Delivery Method Room Air 09/27/22 15:28 BMI result Body Mass Index 29.8 Tobacco/Smoking Status: Tobacco use Status Tobacco use date assessed 09/27/22 09/27/22 15:30 Patient Tobacco Use Status Never used Tobacco 09/27/22 15:30 e-Cigarette/Vaping Use Never Used 09/27/22 15:30 Depression Screening Interpretation: Negative Thrive Assessment: Date of Thrive Assessment Date Thrive assessed 06/25/22 09/27/22 15:30 Const General: comfortable and no acute distress Orientation/consciousness: patient oriented x3 HENMT Ears: hearing grossly normal bilaterally and external ears normal General nose exam: Normal external nose present and Normal nasal mucous membranes and turbinates present Mouth: Normal oral and palatal mucosa present, oropharynx normal and moist mucous membranes Eyes General: appearance normal, both eyes and all related structures Neck Neck: Yes full ROM, Yes no lymphadenopathy and Yes supple Resp Effort & Inspection: normal respiratory effort and able to speak in complete sentences Auscultation: clear to auscultation bilaterally Cardio Rate: regular rate Rhythm: regular rhythm Heart sounds: S1 normal heart sound present and S2 normal heart sound present GI Inspection: Yes normal to inspection Palpation (GI): Soft to palpation, nontender and no masses Auscultation: normal bowel sounds Skin General skin exam: no rashes or lesions noted Neuro General: patient oriented x3, gait normal, tone normal, moves all extremities, Normal light touch and pain sensation and no focal motor deficits Cognition (Neuro): normal cognition Gait exam (Neuro): Normal gait present Motor exam (neuro): 5/5 motor strength present throughout Extrem General: Yes full ROM, Yes no joint enlargement, Yes no pedal edema, Yes no calf tenderness and Yes normal gait Psych Appearance: grossly normal Mental Status: mental status grossly normal Speech and movement: Normal speech and movement present Affect: normal affect Attitude: cooperative Thought process: Normal thought process present Results Reviewed Results Reviewed: Laboratory Tests 09/26/22 09/26/22 07:53 07:55 Estimat Average Glucose 171 Hemoglobin A1c % 7.6 Urine Creatinine 188.74 Urine Microalbumin 68.0 Microalb/Creat Ratio 36.0 NTERED: 09/26/22-[address]: ORDERED: Met Prof Fast, MG, AST, ALT, Lipid Panel, Vitamin D 25-OH Test Result Flag Reference Site Sodium 141 135-145 mmol/L Potassium 4.7 3.3-5.1 mmol/L CL 103 96-108 mmol/L CO2 29 22-29 mmol/L Gap 14 12-20 BUN 23 H 9-16 mg/dL Creat 0.86 0.5-1.4 mg/dL EGFR > 60 NOTE: For -[place] individuals, multiply the result by 1.210. Chronic Kidney Disease: Estimated GFR < 60 mL/min/1.73m2 Severe Kidney Disease: Estimated GFR < 15 mL/min/1.73m2 FBS 176 H 60-99 mg/dL A fasting glucose of 126 mg/dl or greater on more than one occasion is considered diagnostic of diabetes. CA 10.4 H 8.4-10.2 mg/dL Magnesium 1.4 *L 1.6-2.6 mg/dL Critical value for test(s): MAGS Results called to and read back by: [facility] Person calling: JUANIS Date: 09/26/22 Time: 1225 AST (GOT) 15 5-31 U/L ALT (GPT) 12 0-31 U/L Triglyceride 196 mg/dL Desirable Triglyceride: less than 150 mg/dL Borderline High Triglyceride 150-199 mg/dL High Triglyceride: 200-499 mg/dL Very High Triglyceride: greater than or equal to 5OO mg/dL Chol 169 mg/dL Desirable Cholesterol: less than 200 mg/dL Borderline High Cholesterol: 200-239 mg/dL High Cholesterol: greater than 239 mg/dL LDL Calculated 79 mg/dl Desirable LDL: less than 100 mg/dL Near Optimal/Above Optimal LDL: 110-129 mg/dL Borderline High LDL: 130-159 mg/dL High LDL: 160-189 mg/dL Very High LDL: greater than or equal to 190 mg/dL HDL 51 mg/dL Desirable HDL: greater than 40 mg/dL Note: This HDL assay may give artificially low results in patients with liver disease. Vit D 25-OH Tot 44.0 >30 ng/mL Health Based Reference Values* < 20 ng/mL Deficient 20-30 ng/mL Insufficient > 30 ng/mL Sufficient Assessment and Plan Assessment & Plan (1) Essential hypertension: Code(s): I10 - Essential (primary) hypertension Plan: Blood pressure elevated today, will add amlodipine 5 mg once a day at night, continue with losartan-HCTZ and metoprolol succinate reinforced adhering to a low-salt diet and getting regular exercise. (2) Hypomagnesemia: Code(s): E83.42 - Hypomagnesemia Plan: Without any complaints of muscle cramps, continue taking magnesium oxide 250 mg 1 tablet twice a day. Recheck levels again later this year (3) GERD (gastroesophageal reflux disease): Code(s): K21.9 - Gastro-esophageal reflux disease without esophagitis Qualifiers: Esophagitis presence: esophagitis presence not specified Qualified Code(s): K21.9 - Gastro-esophageal reflux disease without esophagitis Plan: Started on famotidine 40 mg 1 tablet once a day at least an hour before eating. (4) Diabetes mellitus with microalbuminuria, without long-term current use of insulin: Code(s): E11.29 - Type 2 diabetes mellitus with other diabetic kidney complication; R80.9 - Proteinuria, unspecified Plan: Continue with metformin, Trulicity and glyburide at same dose. His reinforced importance of following a diabetic diet and getting regular exercise. (5) Mixed dyslipidemia: Code(s): E78.2 - Mixed hyperlipidemia Plan: Continue with rosuvastatin 10 mg daily (6) IBS (irritable bowel syndrome): Code(s): K58.9 - Irritable bowel syndrome without diarrhea Qualifiers: Irritable bowel syndrome type: with diarrhea Qualified Code(s): K58.0 - Irritable bowel syndrome with diarrhea Plan: Will start on dicyclomine 20 mg per tablet to take 1 tablet 3 times a day before meals, increase slowly dietary fiber intake Medications: New amlodipine 5 mg PO DAILY 30 tabs 0RF dicyclomine 20 mg PO TID 90 tabs 0RF K58.0 - Irritable bowel syndrome with diarrhea famotidine 40 mg PO DAILY 30 tabs 1RF Coding Level of Care Code Est Pt Level 3 (61680) Diagnoses Essential hypertension I10 Hypomagnesemia E83.42 Gastroesophageal reflux disease, unspecified whether esophagitis present K21.9 Esophagitis presence: esophagitis presence not specified Diabetes mellitus with microalbuminuria, without long-term current use of insulin E11.29; R80.9 Mixed dyslipidemia E78.2 Irritable bowel syndrome with diarrhea K58.0 Irritable bowel syndrome type: with diarrhea
== END 2022-09-27 16:13 | disposition home or self-care (01) ==
LOC: HO.HMGC 15:16
PROVIDERS: PCP Internal Medicine; Visit Provider Internal Medicine
DX: I10 Essential (primary) hypertension (principal); E83.42 Hypomagnesemia; K21.9 Gastro-esophageal reflux disease without esophagitis; E11.29 Type 2 diabetes mellitus with other diabetic kidney complication; R80.9 Proteinuria, unspecified; E78.2 Mixed hyperlipidemia; K58.0 Irritable bowel syndrome with diarrhea
CPT/HCPCS: 99213

== ENCOUNTER 2022-10-02 07:36 | Outpatient (REF) | payer OTHER, SELFPAY ==
[2022-10-02 12:33] LABS: Magnesium 1.6 mg/dL (1.6-2.6)
[2022-10-04 15:28] LABS: Calcium, Ionized 5.6 mg/dL (4.8-5.6)
== END 2022-10-02 07:37 | disposition home or self-care (01) ==
LOC: HO.HMGCLDS 07:36
PROVIDERS: PCP Internal Medicine; Visit Provider Internal Medicine
DX: E83.42 Hypomagnesemia (principal); E83.52 Hypercalcemia
CPT/HCPCS: 36415; 82330; 83735

== ENCOUNTER 2023-03-22 12:52 | Outpatient (REF) | payer OTHER, SELFPAY ==
--- NOTE | ~2023-03-22 | MM_ITS ---
EXAMINATION: MM DIAGNOSTIC DIGITAL BREAST TOMOSYNTHESIS, RIGHT CLINICAL INFORMATION: 6 month Follow-up probably benign calcifications right breast anterior slightly inner aspect. COMPARISON: Mammography: Most recently 09/17/2022, 08/24/2022, 08/18/2021, and dating back to 2016. TECHNIQUE: Digital right breast tomosynthesis is performed in both the craniocaudal and mediolateral oblique views along with computer-aided detection (CAD). Synthesized 2D images are generated from the tomosynthesis. In addition, spot magnification CC and ML views were performed of the right breast. FINDINGS: There are scattered areas of fibroglandular density (ACR BI-RADS breast composition Category b). There is redemonstration of increasing size, number, and coarseness of calcifications involving a small mass in the anterior upper slightly inner right breast, findings most consistent with degenerating fibroadenoma. These calcifications are benign, and no further follow-up is recommended. There are otherwise no suspicious masses, suspicious grouped calcifications, or areas of architectural distortion in the right breast. The parenchymal pattern is stable from prior exams. There are no skin changes. 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 No further follow-up recommended. Recommend the patient return to routine annual screening mammography to include both breasts. Findings and recommendations were discussed with the patient. ASSESSMENT: BI-RADS BI-RADS 2 - Benign Findings RECOMMENDATION: 1 year F/U Results were provided to the patient at time of visit by the technologist. This patient's information was entered into a reminder system with a target due date for their next mammogram.
== END 2023-03-22 12:53 | disposition home or self-care (01) ==
LOC: HO.MAMMO 12:52
PROVIDERS: PCP Internal Medicine; Visit Provider Internal Medicine
DX: R92.1 Mammographic calcification found on diagnostic imaging of breast (principal)
CPT/HCPCS: 77061; 77065

== ENCOUNTER → 2023-03-22 13:00 | Outpatient (BNV) | payer OTHER, SELFPAY | PROVIDERS: PCP Internal Medicine; Visit Provider Radiology Diagnostic Radiology | DX: R92.1 Mammographic calcification found on diagnostic imaging of breast (principal) | CPT/HCPCS: 77061; 77065 ==

== ENCOUNTER 2023-04-12 07:40 | Outpatient (REF) | payer OTHER, SELFPAY ==
[2023-04-12 12:26] LABS: Estimated Average Glucose 134 mg/dL; Hemoglobin A1c % 6.3 % (<6.0)
[2023-04-12 13:02] LABS: Creatinine Urine 259.64 mg/dL
[2023-04-12 14:22] LABS: Vitamin D 25-OH Total 52.6 ng/mL (>30)
[2023-04-12 14:28] LABS: Alanine Aminotransferase 8 U/L (0-31); Anion Gap 12 (12-20); Aspartate Amino Transferase 14 U/L (5-31); Blood Urea Nitrogen 32 mg/dL (9-16); Calcium 10.4 mg/dL (8.4-10.2); Carbon Dioxide 27 mmol/L (22-29); Chloride 107 mmol/L (96-108); Cholesterol 142 mg/dL (<200); Estimated Glomerular Filt Rate 47; Glucose Fasting 142 mg/dL (60-99); HDL Cholesterol 51 mg/dL (>40); LDL Cholesterol Calculated 61 mg/dL (<100); Magnesium 1.3 mg/dL (1.6-2.6); Potassium 4.3 mmol/L (3.3-5.1); Sodium 142 mmol/L (135-145); Triglycerides 153 mg/dL (<150)
== END 2023-04-12 07:41 | disposition home or self-care (01) ==
LOC: HO.HMGCLDS 07:40
PROVIDERS: PCP Internal Medicine; Visit Provider Internal Medicine
DX: E89.40 Asymptomatic postprocedural ovarian failure (principal); E83.42 Hypomagnesemia; E11.29 Type 2 diabetes mellitus with other diabetic kidney complication; R80.9 Proteinuria, unspecified; I10 Essential (primary) hypertension; E78.2 Mixed hyperlipidemia
CPT/HCPCS: 36415; 80048; 80061; 82043; 82306; 82570; 83036; 83735; 84450; 84460

== ENCOUNTER 2023-04-19 11:07 | Outpatient (REF) | payer OTHER, SELFPAY ==
[2023-04-19 14:07] LABS: Magnesium 1.5 mg/dL (1.6-2.6)
== END 2023-04-19 11:08 | disposition home or self-care (01) ==
LOC: HO.HMGCLDS 11:07
PROVIDERS: PCP Internal Medicine; Visit Provider Internal Medicine
DX: E83.42 Hypomagnesemia (principal)
CPT/HCPCS: 36415; 83735

== ENCOUNTER 2023-04-22 13:00 | Outpatient (AMB) | payer OTHER, SELFPAY ==
[2023-04-22 13:22] VITALS: BP 132/70; PULSE 87; O2SAT 96; BMI 28.7
--- NOTE | 2023-04-22 13:22 | A.OFFPC_ITS ---
Vital Signs 04/22/23 13:22 Height 5 ft 4 in Weight 167 lb BMI 28.7 BP 132/70 Blood Pressure Location Rt brachial Position Sitting Pulse 87 Pulse Source Pulse Oximeter Pulse Oximetry (%) 96 Oxygen Delivery Method Room Air Intake Visit Reasons: 6m follow up lipids,htn,dm Intake Note: patient is here today for her 6mont f/u Allergies Sulfa (Sulfonamide Antibiotics) [SULFA (SULFONAMIDE ANTIBIOTICS)] Allergy (Intermediate, Verified 04/22/23 14:03) HIVES Medication List - Last Reconciled 04/22/23 by Oumou Saenz MD amlodipine 5 mg PO DAILY blood sugar diagnostic Check blood sugar twice a day before meals; cholecalciferol (vitamin D3) 25 mcg PO DAILY dulaglutide (Trulicity) 1.5 mg (0.5 mL) subcut QWEEK glyburide 10 mg (2 x 5 mg) PO BID 90 days lancets (OneTouch UltraSoft Lancets) check blood sugar As directed BID AC losartan-hydrochlorothiazide 100-25 mg 1 tab PO DAILY magnesium oxide 500 mg PO DAILY metformin 1,000 mg PO BID metoprolol succinate ER 50 mg PO QPM rosuvastatin 10 mg PO Q2D 90 days scopolamine base (Transderm-Scop) 1 patch transdermal Q3D PRN Tobacco use date assessed: 04/22/23 Dental Screening Dental Screen Date: 04/22/23 Did you have a dental visit in the last 12 months?: Yes Did you have a dental problem in the last 6 months where you did not have access to dental care?: No Was dental information given to patient?: Patient has dentist HPI 6m follow up lipids,htn,dm HPI Details 62-year-old lady here today for follow-u p on her diabetes mellitus, hypertension and elevated lipids. Has been compliant with taking her medications and trying to fire adhere to recommended diet. Has been feeling well with no complaints at present time. Recent fasting labs done showed normal lipids, diabetes mellitus stable controlled with hemoglobin A1c at 6 .3%. Has hypo magnesemia, currently on supplements, with magnesium level rising from 1.3- 1.5 mg per dL [facility] Medical History (Updated 06/15/23 @ 01:18 by Oumou Saenz MD) Hypomagnesemia Irritable bowel syndrome with diarrhea Surgical menopause GERD (gastroesophageal reflux disease) Ureteral calculus, left Mixed dyslipidemia Diabetes mellitus with microalbuminuria, without long-term current use of insulin History of uterine cancer IBS (irritable bowel syndrome) Diabetes mellitus with kidney complication Essential hypertension Swine flu Hearing impaired Surgical History Status post laser lithotripsy of ureteral calculus History of total abdominal hysterectomy and bilateral salpingo-oophorectomy History of section Hx of cholecystectomy Family History Father Cancer of prostate Mother No problems noted. Sister Mental health disorder Social History Housing: House Alcohol intake: former Patient Tobacco Use Status: Never used Tobacco e-Cigarette/Vaping Use: Never Used Second Hand Smoke Exposure: No service: No Current occupational status: employed Cognitive needs: No Hearing needs: No Vision needs: Yes Questionnaire PHQ-9 Over the last 2 weeks, how often have you been bothered by any of the following problems? 1. Little interest or pleasure in doing things: not at all 2. Feeling down, depressed, or hopeless: not at all 3. Trouble falling or staying asleep, or sleeping too much: several days 4. Feeling tired or having little energy: several days 5. Poor appetite or overeating: not at all 6. Feeling bad about yourself - or that you are a failure or have let yourself or your family down: not at all 7. Trouble concentrating on things, such as reading the newspaper or watching television: not at all 8. Moving or speaking so slowly that other people could have noticed. Or the opposite - being so fidgety or restless that you have been moving around a lot more than usual: not at all 9. Thoughts that you would be better off or of hurting yourself in some way: not at all Total score: 2 Depression Screening Interpretation: Negative 65517 - PHQ-9 Billing: Yes Source: Developed by Drs. Abran Dumont, Geri Matson, Sid Pond and colleagues, with an educational nohemi from [email or web address]. Thrive Questionnaire Date Thrive assessed: 04/22/23 Within the past 12 months, did the food you bought not last and you didn't have the money to get more?: Never true Within the past 12 months, did you worry whether your food would run out before you got money to buy more?: Never true Do you have trouble paying for medicines?: No Do you have trouble getting transportation to medical appointments?: No Do you have trouble paying your heating and electricity bill?: No Do you have trouble taking care of your child, family member or friend?: No Do you have trouble with day-to-day activities such as bathing, preparing meals, shopping, managing finances, etc.?: No Are you currently unemployed and looking for a job?: No Are you interested in more education?: No AUDIT C Alcohol Use Questionnaire (AUDIT-C) 1. How often do you have a drink containing alcohol?: Monthly or less 2. How many drinks containing alcohol do you have on a typical day when you are drinking?: 1 or 2 Total Score: 1 WILFREDO-7 AMB Questionnaire WILFREDO-7 Date WILFREDO - 7 assessed: 04/22/23 Feeling nervous, anxious, or on edge: 1 = Several days Not being able to stop or control worryin = Not at all Worrying too much about different things: 0 = Not at all Trouble relaxin = Not at all Being so restless that it is hard to sit still: 0 = Not at all Becoming easily annoyed or irritable: 0 = Not at all Feeling afraid as if something awful might happen: 0 = Not at all Total WILFREDO-7 score (0-4 normal; 5-9 mild; 10-14 moderate; 15-21 severe): 1 Source: Developed by Drs. Abran Dumont, Geri Matson, Sid Pond and colleagues, with an educational nohemi from [email or web address]. WILFREDO-7 Assessment Billing WILFREDO-7 Assessment Tool: WILFREDO-7 Assessment 94122 Review of Systems Const Denies body aches, Denies fatigue, Denies fever(s), Denies headache(s) and Denies weakness Eyes Details: She sees Dr. Flynn for her diabetes retinopathy screening and routine eye exam Denies change in vision and Denies eye discharge ENT Denies headache(s), Denies nasal congestion, Denies nasal discharge and Denies sore throat Card Denies chest pain, Denies lightheadedness, Denies palpitations and Denies dyspnea Resp Denies chest congestion, Denies cough and Denies dyspnea GI Denies abdominal pain, Denies change in bowel habits and Denies heartburn Denies urinary frequency, Denies dysuria and Denies urinary urgency Musc Reports no additional complaints Skin/Breast Denies lesions and Denies rash Neuro Denies headache(s) and Denies weakness Endo Denies fatigue, Denies polydipsia, Denies polyuria and Denies palpitations Physical exam (Primary Care) Vital Signs: Last Vital Signs Pulse 87 04/22/23 13:22 BP 132/70 04/22/23 13:22 Pulse Ox 96 04/22/23 13:22 Oxygen Delivery Method Room Air 04/22/23 13:22 BMI result Body Mass Index 28.7 Tobacco/Smoking Status: Tobacco use Status Tobacco use date assessed 04/22/23 04/22/23 13:25 Patient Tobacco Use Status Never used Tobacco 04/22/23 13:25 e-Cigarette/Vaping Use Never Used 04/22/23 13:25 PHQ-9: PHQ-9 Score PHQ-9: Total score 2 04/22/23 14:01 Depression Screening Interpretation: Negative Thrive Assessment: Date of Thrive Assessment Date Thrive assessed 04/22/23 04/22/23 13:51 Const General: comfortable and no acute distress Orientation/consciousness: patient oriented x3 HENMT Ears: hearing grossly normal bilaterally and external ears normal General nose exam: Normal external nose present and Normal nasal mucous membranes and turbinates present Mouth: Normal oral and palatal mucosa present, oropharynx normal and moist mucous membranes Eyes General: appearance normal, both eyes and all related structures Neck Neck: Yes full ROM, Yes no lymphadenopathy and Yes supple Resp Effort & Inspection: normal respiratory effort and able to speak in complete sentences Auscultation: clear to auscultation bilaterally Cardio Rate: regular rate Rhythm: regular rhythm Heart sounds: S1 normal heart sound present and S2 normal heart sound present GI Inspection: Yes normal to inspection Palpation (GI): Soft to palpation, nontender and no masses Auscultation: normal bowel sounds Skin General skin exam: no rashes or lesions noted Neuro General: patient oriented x3, gait normal, tone normal, moves all extremities, Normal light touch and pain sensation and no focal motor deficits Cognition (Neuro): normal cognition Gait exam (Neuro): Normal gait present Motor exam (neuro): 5/5 motor strength present throughout Extrem General: Yes full ROM, Yes no joint enlargement, Yes no pedal edema, Yes no calf tenderness and Yes normal gait Psych Appearance: grossly normal Mental Status: mental status grossly normal Speech and movement: Normal speech and movement present Affect: normal affect Attitude: cooperative Thought process: Normal thought process present Results Reviewed Results Reviewed: ENTERED: 04/12/23 ALIDA JAMIL: ORDERED: Met Prof Fast, MG, AST, ALT, Lipid Panel, Vitamin D 25-OH Test Result Flag Reference Site Sodium 142 135-145 mmol/L Potassium 4.3 3.3-5.1 mmol/L CL 107 96-108 mmol/L CO2 27 22-29 mmol/L Gap 12 12-20 BUN 32 H 9-16 mg/dL Creat 1.16 0.5-1.4 mg/dL EGFR 47 NOTE: For -[place] individuals, multiply the result by 1.210. Chronic Kidney Disease: Estimated GFR < 60 mL/min/1.73m2 Severe Kidney Disease: Estimated GFR < 15 mL/min/1.73m2 FBS 142 H 60-99 mg/dL A fasting glucose of 126 mg/dl or greater on more than one occasion is considered diagnostic of diabetes. CA 10.4 H 8.4-10.2 mg/dL Magnesium 1.3 *L 1.6-2.6 mg/dL Critical value for test(s): MAGS Results called to and read back by: JUANIS Person calling: PRIMITIVO Date: 04/12/23 Time: 1428 AST (GOT) 14 5-31 U/L ALT (GPT) 8 0-31 U/L Triglyceride 153 H <150 mg/dL Desirable Triglyceride: less than 150 mg/dL Borderline High Triglyceride 150-199 mg/dL High Triglyceride: 200-499 mg/dL Very High Triglyceride: greater than or equal to 5OO mg/dL Cholesterol 142 <200 mg/dL Desirable Cholesterol: less than 200 mg/dL Borderline High Cholesterol: 200-239 mg/dL High Cholesterol: greater than 239 mg/dL LDL Calculated 61 <100 mg/dL Desirable LDL: less than 100 mg/dL Near Optimal/Above Optimal LDL: 110-129 mg/dL Borderline High LDL: 130-159 mg/dL High LDL: 160-189 mg/dL Very High LDL: greater than or equal to 190 mg/dL HDL 51 >40 mg/dL Desirable HDL: greater than 40 mg/dL Note: This HDL assay may give artificially low results in patients with liver disease. Vit D 25-OH Tot 52.6 >30 ng/mL Health Based Reference Values* < 20 ng/mL Deficient 20-30 ng/mL Insufficient > 30 ng/mL Sufficient Laboratory Tests 04/19/23 11:17 Magnesium 1.5 L Laboratory Tests 04/12/23 07:43 Estimat Average Glucose 134 Hemoglobin A1c % 6.3 H Assessment and Plan Assessment & Plan (1) Hypomagnesemia: Code(s): E83.42 - Hypomagnesemia Plan: Improvement in magnesium levels noted, new taking magnesium oxide 500 mg 1 tablet daily patient currently asymptomatic (2) Mixed dyslipidemia: Code(s): E78.2 - Mixed hyperlipidemia Plan: Reviewed recent fasting lipid profile with patient with levels within normal limits . Continue with rosuvastatin 10 mg 1 tablet every other day , in addition to adherence to low-cholesterol diet and regular exercise, at least 30 minutes 3 to 4 times a week. Advised patient to make healthy food choices, eat more fruits, vegetables, whole grains, wild caught fish and low-fat dairy. Limit amount of meat and fried or fatty food products, as well as processed foods and fast foods. Follow-up scheduled with repeat fasting lipid panel in 3 months. (3) Diabetes mellitus with microalbuminuria, without long-term current use of insulin: Code(s): E11.29 - Type 2 diabetes mellitus with other diabetic kidney complication; R80.9 - Proteinuria, unspecified Plan: Recent lab results reviewed with patient, with sugar and hemoglobin A1c stable and at goal. Continue with metformin and Trulicity, and glyburide. Continue to check fasting blood sugar at home, maintain log and bring to next appointment for review. Reinforced diabetic diet and regular exercise with patient. Counseled regarding importance of yearly diabetes retinopathy screening. Patient advised to inspect feet daily, for any signs of injury, callus or infection. Compliance with diet and regular exercise again stressed. Blood pressure goal is less than 130/80, goal LDL is less than 100 and goal hemoglobin A1c is less than 7% follow-up appointment made in--3-months, after fasting labs done. (4) Essential hypertension: Code(s): I10 - Essential (primary) hypertension Plan: Blood pressure at goal of less than 130/80. Continue with current medication. Reinforced importance of following a low sodium diet, getting regular exercise, and lowering stress levels. Orders: Orders Magnesium 07/01/23 E83.42 - Hypomagnesemia, E78.2 - Mixed hyperlipidemia, E11.29 - Type 2 diabetes mellitus with other diabetic kidney complication, R80.9 - Proteinuria, unspecified, I10 - Essential (primary) hypertension Alanine Aminotransferase 07/01/23 E83.42 - Hypomagnesemia, E78.2 - Mixed hyperlipidemia, E11.29 - Type 2 diabetes mellitus with other diabetic kidney complication, R80.9 - Proteinuria, unspecified, I10 - Essential (primary) hypertension Basic Metabolic Panel Fasting 07/01/23 E83.42 - Hypomagnesemia, E78.2 - Mixed hyperlipidemia, E11.29 - Type 2 diabetes mellitus with other diabetic kidney complication, R80.9 - Proteinuria, unspecified, I10 - Essential (primary) hypertension Hemoglobin A1c 07/01/23 E83.42 - Hypomagnesemia, E78.2 - Mixed hyperlipidemia, E11.29 - Type 2 diabetes mellitus with other diabetic kidney complication, R80.9 - Proteinuria, unspecified, I10 - Essential (primary) hypertension Lipid Panel 07/01/23 E83.42 - Hypomagnesemia, E78.2 - Mixed hyperlipidemia, E11.29 - Type 2 diabetes mellitus with other diabetic kidney complication, R80.9 - Proteinuria, unspecified, I10 - Essential (primary) hypertension Aspartate Amino Transferase 07/01/23 E83.42 - Hypomagnesemia, E78.2 - Mixed hyperlipidemia, E11.29 - Type 2 diabetes mellitus with other diabetic kidney complication, R80.9 - Proteinuria, unspecified, I10 - Essential (primary) hypertension Vitamin D 25-OH Total 07/01/23 E83.42 - Hypomagnesemia, E78.2 - Mixed hyperlipidemia, E11.29 - Type 2 diabetes mellitus with other diabetic kidney complication, R80.9 - Proteinuria, unspecified, I10 - Essential (primary) hypertension Coding Level of Care Code Est Pt Level 3 (68309) Diagnoses Hypomagnesemia E83.42 Mixed dyslipidemia E78.2 Diabetes mellitus with microalbuminuria, without long-term current use of insulin E11.29; R80.9 Essential hypertension I10 Additional Codes WILFREDO-7 Assessment Billing - WILFREDO-7 Assessment Tool: WILFREDO-7 Assessment 14926 ([id number])
== END 2023-04-22 14:21 | disposition home or self-care (01) ==
PROVIDERS: Visit Provider Internal Medicine
DX: E83.42 Hypomagnesemia (principal); E78.2 Mixed hyperlipidemia; E11.29 Type 2 diabetes mellitus with other diabetic kidney complication; R80.9 Proteinuria, unspecified; I10 Essential (primary) hypertension
CPT/HCPCS: 99213

== ENCOUNTER 2023-07-23 07:13 | Outpatient (REF) | payer OTHER, SELFPAY ==
[2023-07-23 11:41] LABS: Estimated Average Glucose 137 mg/dL; Hemoglobin A1c % 6.4 % (<6.0)
[2023-07-23 12:10] LABS: Vitamin D 25-OH Total 56.4 ng/mL (>30)
[2023-07-23 12:15] LABS: Alanine Aminotransferase 9 U/L (0-31); Anion Gap 14 (12-20); Aspartate Amino Transferase 14 U/L (5-31); Blood Urea Nitrogen 29 mg/dL (9-16); Calcium 9.2 mg/dL (8.4-10.2); Carbon Dioxide 27 mmol/L (22-29); Chloride 105 mmol/L (96-108); Cholesterol 163 mg/dL (<200); Estimated Glomerular Filt Rate 55; Glucose Fasting 161 mg/dL (60-99); HDL Cholesterol 46 mg/dL (>40); LDL Cholesterol Calculated 73 mg/dL (<100); Magnesium 1.1 mg/dL (1.6-2.6); Sodium 142 mmol/L (135-145); Triglycerides 224 mg/dL (<150)
== END 2023-07-23 07:14 | disposition home or self-care (01) ==
LOC: HO.HMGCLDS 07:13
PROVIDERS: PCP Internal Medicine; Visit Provider Internal Medicine
DX: E83.42 Hypomagnesemia (principal); E78.2 Mixed hyperlipidemia; E11.29 Type 2 diabetes mellitus with other diabetic kidney complication; R80.9 Proteinuria, unspecified; I10 Essential (primary) hypertension
CPT/HCPCS: 36415; 80048; 80061; 82306; 83036; 83735; 84450; 84460

== ENCOUNTER 2023-07-24 09:22 | Outpatient (AMB) | payer OTHER, SELFPAY ==
--- NOTE | 2023-07-24 09:37 | MHC.PC.OV ---
Vital Signs 07/24/23 09:39 Height 5 ft 4 in Weight 169 lb BMI 29.0 BP 138/82 Blood Pressure Location Lt brachial Position Sitting Pulse 80 Pulse Source Pulse Oximeter Pulse Oximetry (%) 97 Oxygen Delivery Method Room Air Intake Visit Reasons: Annual PE Intake Note: Pt is here for her Annual PE Allergies Sulfa (Sulfonamide Antibiotics) [SULFA (SULFONAMIDE ANTIBIOTICS)] Allergy (Intermediate, Verified 08/16/23 23:40) HIVES Medication List - Last Reconciled 08/16/23 by Oumou Saenz MD amlodipine 5 mg PO DAILY blood sugar diagnostic Check blood sugar twice a day before meals; cholecalciferol (vitamin D3) 25 mcg PO DAILY dicyclomine 20 mg PO TID empagliflozin (Jardiance) 25 mg PO QAM lancets (OneTouch UltraSoft Lancets) check blood sugar As directed BID AC loperamide (Anti-Diarrheal (loperamide)) 2 mg PO Q6H PRN losartan-hydrochlorothiazide 100-25 mg 1 tab PO DAILY magnesium oxide 500 mg PO DAILY metformin 1,000 mg PO BID metoprolol succinate ER 50 mg PO QPM rosuvastatin 10 mg PO Q2D 90 days scopolamine base (Transderm-Scop) 1 patch transdermal Q3D PRN Tobacco use date assessed: 07/24/23 Dental Screening Dental Screen Date: 07/24/23 Did you have a dental visit in the last 12 months?: Yes Did you have a dental problem in the last 6 months where you did not have access to dental care?: No Was dental information given to patient?: Patient has dentist HPI Annual PE HPI Details 63-year-old lady here today for her physical exam she has hypertension currently on amlodipine 5 mg daily and losartan HCTZ 100-25 mg once a day. Has diabetes mellitus currently on metformin, Trulicity and glipizide. Latest labs showed hemoglobin A1c at 6.4%, but patient complaining feeling gassy and having diffuse abdominal cramping accompanied by loose stools ever since she started Trulicity. She has hyperlipidemia, currently on rosuvastatin, and latest labs showed presence of hypomagnesemia . Patient denies any accompanying weakness, but has been having intermittent episodes of leg cramps. She is up-to-date with her screening mammogram and bone density scan, up-to-date with her screening colonoscopy done by Dr. Chicas in 2017, repeat again in 10 [address] Johnson for her routine Pap and pelvic exam, last 1 done was in 2019 with negative findings. [facility] Medical History (Updated 08/16/23 @ 23:43 by Oumou Saenz MD) Hypomagnesemia Irritable bowel syndrome with diarrhea Surgical menopause Ureteral calculus, left Mixed dyslipidemia Diabetes mellitus with microalbuminuria, without long-term current use of insulin History of uterine cancer Diabetes mellitus with kidney complication Essential hypertension Swine flu Hearing impaired Surgical History Status post laser lithotripsy of ureteral calculus History of total abdominal hysterectomy and bilateral salpingo-oophorectomy History of section Hx of cholecystectomy Family History Father Cancer of prostate Mother No problems noted. Sister Mental health disorder Social History Housing: House Alcohol intake: former Patient Tobacco Use Status: Never used Tobacco e-Cigarette/Vaping Use: Never Used Second Hand Smoke Exposure: No service: No Current occupational status: employed Cognitive needs: No Hearing needs: No Vision needs: Yes Questionnaire Thrive Questionnaire Date Thrive assessed: 04/22/23 WILFREDO-7 AMB Questionnaire WILFREDO-7 Date WILFREDO - 7 assessed: 04/22/23 Source: Developed by Drs. Abran Dumont, Geri Matson, Sid Pond and colleagues, with an educational nohemi from [employer]. Review of Systems Const Denies body aches, Denies fatigue, Denies fever(s), Denies headache(s) and Denies weakness Eyes Details: She sees Dr. Flynn for her diabetes retinopathy screening and routine eye exam Denies change in vision and Denies eye discharge ENT Denies headache(s), Denies nasal congestion, Denies nasal discharge and Denies sore throat Card Denies chest pain, Denies lightheadedness, Denies palpitations and Denies dyspnea Resp Denies chest congestion, Denies cough and Denies dyspnea GI Reports as per HPI, Denies melena and Denies hematochezia Denies urinary frequency, Denies dysuria and Denies urinary urgency Musc Reports no additional complaints Skin/Breast Denies lesions and Denies rash Neuro Denies headache(s) and Denies weakness Psych Reports no additional complaints Endo Denies fatigue, Denies polydipsia, Denies polyuria and Denies palpitations Stu/Lymph Reports no additional complaints Aller/Immun Reports no additional complaints Physical exam (Primary Care) Vital Signs: Last Vital Signs Pulse 80 07/24/23 09:39 BP 138/82 07/24/23 09:39 Pulse Ox 97 07/24/23 09:39 Oxygen Delivery Method Room Air 07/24/23 09:39 BMI result Body Mass Index 29.0 Tobacco/Smoking Status: Tobacco use Status Tobacco use date assessed 07/24/23 07/24/23 09:44 Patient Tobacco Use Status Never used Tobacco 07/24/23 09:37 e-Cigarette/Vaping Use Never Used 07/24/23 09:37 Thrive Assessment: Date of Thrive Assessment Date Thrive assessed 04/22/23 07/24/23 09:37 Const General: comfortable and no acute distress Orientation/consciousness: patient oriented x3 HENMT Ears: external ears normal General nose exam: Normal external nose present and Normal nasal mucous membranes and turbinates present Mouth: Normal oral and palatal mucosa present, oropharynx normal and moist mucous membranes Eyes General: appearance normal, both eyes and all related structures Neck Neck: Yes full ROM, Yes no lymphadenopathy and Yes supple Chest Breast/axilla palpation: normal palpation of the breasts Resp Effort & Inspection: normal respiratory effort and able to speak in complete sentences Auscultation: clear to auscultation bilaterally Cardio Rate: regular rate Rhythm: regular rhythm Heart sounds: S1 normal heart sound present and S2 normal heart sound present GI Inspection: Yes normal to inspection Palpation (GI): Soft to palpation, nontender and no masses Auscultation: Hyperactive bowel sounds present General: Yes no CVA tenderness Back/Spine/Pelvis Back: no CVA tenderness and No back tenderness Skin General skin exam: no rashes or lesions noted Neuro General: patient oriented x3, gait normal, tone normal, moves all extremities, Normal light touch and pain sensation and no focal motor deficits Cognition (Neuro): normal cognition Gait exam (Neuro): Normal gait present Motor exam (neuro): 5/5 motor strength present throughout Extrem General: Yes full ROM, Yes no joint enlargement, Yes no pedal edema, Yes no calf tenderness and Yes normal gait Psych Appearance: grossly normal Mental Status: mental status grossly normal Speech and movement: Normal speech and movement present Affect: normal affect Attitude: cooperative Thought process: Normal thought process present Results Reviewed Results Reviewed: Laboratory Tests 07/23/23 07:20 Estimat Average Glucose 137 Hemoglobin A1c % 6.4 H ENTERED: 07/23/[address]: ORDERED: Met Prof Fast, MG, AST, ALT, Lipid Panel, Vitamin D 25-OH Test Result Flag Reference Sodium 142 135-145 mmol/L Potassium 4.0 3.3-5.1 mmol/L CL 105 96-108 mmol/L CO2 27 22-29 mmol/L Gap 14 12-20 BUN 29 H 9-16 mg/dL Creat 1.02 0.5-1.4 mg/dL EGFR 55 NOTE: For -[place] individuals, multiply the result by 1.210. Chronic Kidney Disease: Estimated GFR < 60 mL/min/1.73m2 Severe Kidney Disease: Estimated GFR < 15 mL/min/1.73m2 FBS 161 H 60-99 mg/dL A fasting glucose of 126 mg/dl or greater on more than one occasion is considered diagnostic of diabetes. CA 9.2 # 8.4-10.2 mg/dL Magnesium 1.1 *L 1.6-2.6 mg/dL Critical value for MAG: Results called to and read back by: SABAS Campos Person calling: VIKAS Date: 07/23/23 Time: 1200 AST (GOT) 14 5-31 U/L ALT (GPT) 9 0-31 U/L Triglyceride 224 H <150 mg/dL Desirable Triglyceride: less than 150 mg/dL Borderline High Triglyceride 150-199 mg/dL High Triglyceride: 200-499 mg/dL Very High Triglyceride: greater than or equal to 5OO mg/dL Cholesterol 163 <200 mg/dL Desirable Cholesterol: less than 200 mg/dL Borderline High Cholesterol: 200-239 mg/dL High Cholesterol: greater than 239 mg/dL LDL Calculated 73 <100 mg/dL Desirable LDL: less than 100 mg/dL Near Optimal/Above Optimal LDL: 110-129 mg/dL Borderline High LDL: 130-159 mg/dL High LDL: 160-189 mg/dL Very High LDL: greater than or equal to 190 mg/dL HDL 46 >40 mg/dL Desirable HDL: greater than 40 mg/dL Note: This HDL assay may give artificially low results in patients with liver disease. Vit D 25-OH Tot 56.4 >30 ng/mL Health Based Reference Values* < 20 ng/mL Deficient 20-30 ng/mL Insufficient > 30 ng/mL Sufficient Assessment and Plan Assessment & Plan (1) Annual visit for general adult medical examination with abnormal findings: Code(s): Z00.01 - Encounter for general adult medical examination with abnormal findings Plan: Discussed recent fasting lab results with patient. Recommended dental visit every 6 months and annual eye exams Take adequate calcium in diet and vitamin-D 3 at 2000 IU per cap once a day, in addition to weight-bearing exercises to help maintain good muscle tone and weight control. Instructed to do self-breast exam, and continue with yearly mammogram, up-to-date with her bone density scan which showed normal findings.. Up-to-date with her screening colonoscopy. Has had COVID vaccinations in the past, reminded to get her booster, up-to-date with flu shot, received 1 dose of her shingles vaccine and up-to-date with her Tdap and pneumonia vaccination. (2) Diabetes mellitus with microalbuminuria, without long-term current use of insulin: Code(s): E11.29 - Type 2 diabetes mellitus with other diabetic kidney complication; R80.9 - Proteinuria, unspecified Qualifiers: Diabetes mellitus type: type 2 Qualified Code(s): E11.29 - Type 2 diabetes mellitus with other diabetic kidney complication; R80.9 - Proteinuria, unspecified Plan: Will discontinue Trulicity and glipizide and continued metformin at the same dose, added Jardiance 25 mg per tablet taken once a day in the morning an hour before breakfast and only with the glass of water. (3) Hypomagnesemia: Code(s): E83.42 - Hypomagnesemia Plan: Continue taking magnesium oxide 500 mg once a day, and will repeat serum magnesium level in a week (4) Essential hypertension: Code(s): I10 - Essential (primary) hypertension Plan: Systolic blood pressure slightly elevated, will continue with current medications. Advised to check blood pressure at home least 2 to 3 times a week and call if persistently elevated above 140 over 90. Reinforced importance of following a low sodium diet, getting regular exercise, and lowering stress levels. (5) Mixed dyslipidemia: Code(s): E78.2 - Mixed hyperlipidemia Plan: Reviewed recent fasting lipid profile with patient with LDL at goal but elevated triglycerides . Continue with rosuvastatin 10 mg 1 tablet every other day , in addition to adherence to low-cholesterol diet and regular exercise, at least 30 minutes 3 to 4 times a week. Advised patient to make healthy food choices, eat more fruits, vegetables, whole grains, wild caught fish and low-fat dairy. Limit amount of meat and fried or fatty food products, as well as processed foods and fast foods. Follow-up scheduled with repeat fasting lipid panel in 3 months. (6) Irritable bowel syndrome with diarrhea: Code(s): K58.0 - Irritable bowel syndrome with diarrhea Plan: Started on dicyclomine 20 mg per tablet to take 1 tablet 3 times a day before meals. Avoidance of dairy and greasy fried foods, increase dietary fiber intake (7) Hearing impaired: Code(s): H91.90 - Unspecified hearing loss, unspecified ear Qualifiers: Hearing loss type: unspecified Laterality: unspecified laterality Qualified Code(s): H91.90 - Unspecified hearing loss, unspecified ear Orders: Orders Magnesium 1 Week E83.42 - Hypomagnesemia Medications: New empagliflozin (Jardiance) 25 mg PO QAM 30 tabs 5RF dicyclomine 20 mg PO TID 90 tabs 0RF K58.0 - Irritable bowel syndrome with diarrhea Discontinued glyburide Discontinued Reason: Doctor's Order 10 mg (2 x 5 mg) PO BID 90 days 360 tabs 1RF dulaglutide Discontinued Reason: Doctor's Order 1.5 mg (0.5 mL) subcut QWEEK 6 mL 1RF Coding Level of Care Code Est Pt Prev Care 40-64y(44457) Diagnoses Annual visit for general adult medical examination with abnormal findings Z00.01 Type 2 diabetes mellitus with microalbuminuria, without long-term current use of insulin E11.29; R80.9 Diabetes mellitus type: type 2 Hypomagnesemia E83.42 Essential hypertension I10 Mixed dyslipidemia E78.2 Irritable bowel syndrome with diarrhea K58.0 Hearing loss, unspecified hearing loss type, unspecified laterality H91.90 Hearing loss type: unspecified Laterality: unspecified laterality
[2023-07-24 09:39] VITALS: BP 138/82; PULSE 80; O2SAT 97; BMI 29.0
== END 2023-07-24 10:37 | disposition home or self-care (01) ==
PROVIDERS: PCP Internal Medicine; Visit Provider Internal Medicine
DX: Z00.00 Encounter for general adult medical examination without abnormal findings (principal); E11.29 Type 2 diabetes mellitus with other diabetic kidney complication; R80.9 Proteinuria, unspecified; E83.42 Hypomagnesemia; I10 Essential (primary) hypertension; E78.2 Mixed hyperlipidemia; K58.0 Irritable bowel syndrome with diarrhea
CPT/HCPCS: 99396

== ENCOUNTER 2023-08-01 10:01 | Outpatient (REF) | payer SELFPAY | END 2023-08-01 10:02 | disposition home or self-care (01) | LOC: HO.HMGCLDS 10:01 | PROVIDERS: PCP Internal Medicine; Visit Provider Internal Medicine | DX: E83.42 Hypomagnesemia (principal) | CPT/HCPCS: 36415; 83735 ==

== ENCOUNTER 2023-08-05 09:30 | Outpatient (REF) | payer SELFPAY ==
--- NOTE | 2023-08-05 10:13 | MHC.AU.HA3 ---
Hearing Instrument Follow-Up- Binaural Date of Visit: 08/05/23 Right Ear: Make, Model, Color, Serial Number: [id number] Metallographic Technician Repair Warranty: 07/21/2023 Metallographic Technician Loss and Damage Warranty: 07/21/2023 [facility] Service Plan: 07/21/23 Battery Size: 312 Lead Neurodiagnostic Technologist/Slim Tube: Power Type of Wax Guard: CeruStop Dispensed By: [facility] Date of Fittin07/08/2020 Follow-Up Summary: Shanda visited for a routine cleaning, had called to have completed before end of warranty but was not able to get into the schedule, will consider today final warranty check. No reported issues. Replaced wax guard, vacuumed microphones; listening check OK. Discussed returning for updated audiogram with next routine cleaning. Patient is aware there will be a charge for services moving forward. Recommendations: Recommendations: Hearing instrument maintenance in 6 months, or sooner if needed. Diagnosis Code(s): Primary Diagnosis: H90.3 Bilateral Sensorineural Hearing Loss Signature: Provider: Jhoana Cao, CCC-A
== END 2023-08-05 09:31 | disposition home or self-care (01) ==
LOC: HO.HAP 09:30
PROVIDERS: Visit Provider Internal Medicine
DX: Z46.1 Encounter for fitting and adjustment of hearing aid (principal); H90.3 Sensorineural hearing loss, bilateral
CPT/HCPCS: V5267

== ENCOUNTER 2023-08-08 08:56 | Outpatient (REF) | payer OTHER, SELFPAY ==
[2023-08-08 12:15] LABS: Magnesium 1.7 mg/dL (1.6-2.6)
== END 2023-08-08 08:57 | disposition home or self-care (01) ==
LOC: HO.HMGCLDS 08:56
PROVIDERS: PCP Internal Medicine; Visit Provider Internal Medicine
DX: E83.42 Hypomagnesemia (principal)
CPT/HCPCS: 36415; 83735

== ENCOUNTER 2023-09-17 10:57 | Outpatient (REF) | payer OTHER, SELFPAY ==
--- NOTE | ~2023-09-17 | MM_ITS ---
EXAMINATION: MM SCREENING DIGITAL BREAST TOMOSYNTHESIS, BILATERAL CLINICAL INFORMATION: Screening. Asymptomatic. COMPARISON: Mammography: This study is compared with prior exams dating back to 2019. TECHNIQUE: Digital breast tomosynthesis is performed in both the craniocaudal and mediolateral oblique views along with computer-aided detection (CAD). Synthesized 2D images are generated from the tomosynthesis. FINDINGS: There are scattered areas of fibroglandular density (ACR BI-RADS breast composition Category b). There are no significant masses, abnormal calcifications, or other abnormalities. There is a tissue marker present in the right breast from prior benign percutaneous biopsy. There are bilateral, scattered, benign calcifications. MM/MM tomosynthesis screening BI IMPRESSION: No mammographic evidence of malignancy. ASSESSMENT: BI-RADS BI-RADS 2 - Benign Findings RECOMMENDATION: Routine annual mammography screening. 1 year F/U This examination should not preclude the clinical evaluation of a suspicious palpable abnormality. This patient's information was entered into a reminder system with a target due date for their next mammogram.
== END 2023-09-17 10:58 | disposition home or self-care (01) ==
LOC: HO.MAMMO 10:57
PROVIDERS: PCP Internal Medicine; Visit Provider Internal Medicine
DX: Z12.31 Encounter for screening mammogram for malignant neoplasm of breast (principal)
CPT/HCPCS: 77063; 77067

== ENCOUNTER → 2023-09-17 11:00 | Outpatient (BNV) | payer OTHER, SELFPAY | PROVIDERS: PCP Internal Medicine; Visit Provider Radiology Diagnostic Radiology | DX: Z12.31 Encounter for screening mammogram for malignant neoplasm of breast (principal) | CPT/HCPCS: 77063; 77067 ==

== ENCOUNTER 2023-10-11 08:00 | Outpatient (REF) | payer OTHER, SELFPAY ==
[2023-10-11 10:56] LABS: Estimated Average Glucose 280 mg/dL; Hemoglobin A1c % 11.4 % (<6.0)
[2023-10-11 11:16] LABS: Alanine Aminotransferase 11 U/L (0-31); Anion Gap 16 (12-20); Aspartate Amino Transferase 11 U/L (5-31); Blood Urea Nitrogen 44 mg/dL (9-16); Calcium 10.7 mg/dL (8.4-10.2); Carbon Dioxide 29 mmol/L (22-29); Chloride 98 mmol/L (96-108); Cholesterol 153 mg/dL (<200); Estimated Glomerular Filt Rate 30; Glucose Fasting 425 mg/dL (60-99); HDL Cholesterol 47 mg/dL (>40); LDL Cholesterol Calculated 52 mg/dL (<100); Magnesium 1.8 mg/dL (1.6-2.6); Potassium 4.5 mmol/L (3.3-5.1); Sodium 138 mmol/L (135-145); Triglycerides 272 mg/dL (<150)
[2023-10-11 11:31] LABS: Creatinine Urine 55.65 mg/dL; Microalbum/Creatinine Ratio Ur 14.3 ug/mg cr (<30)
== END 2023-10-11 08:01 | disposition home or self-care (01) ==
LOC: HO.HMGCLDS 08:00
PROVIDERS: PCP Internal Medicine; Visit Provider Internal Medicine
DX: E78.2 Mixed hyperlipidemia (principal); E11.29 Type 2 diabetes mellitus with other diabetic kidney complication; I10 Essential (primary) hypertension; E83.42 Hypomagnesemia
CPT/HCPCS: 36415; 80048; 80061; 82043; 82570; 83036; 83735; 84450; 84460

== ENCOUNTER 2023-10-15 11:40 | Outpatient (AMB) | payer OTHER, SELFPAY ==
[2023-10-15 11:44] VITALS: BP 122/64; PULSE 54; O2SAT 98; BMI 27.1
--- NOTE | 2023-10-15 11:44 | MHC.PC.OV ---
Vital Signs 10/15/23 11:44 Height 5 ft 4 in Weight 158 lb BMI 27.1 BP 122/64 Blood Pressure Location Rt brachial Position Sitting Pulse 54 Pulse Source Pulse Oximeter Pulse Oximetry (%) 98 Oxygen Delivery Method Room Air Intake Visit Reasons: 3 month follow up DM Intake Note: Pt is here today for her 3 months f/u DM Allergies Sulfa (Sulfonamide Antibiotics) [SULFA (SULFONAMIDE ANTIBIOTICS)] Allergy (Intermediate, Verified 10/15/23 12:06) HIVES Medication List - Last Reconciled 10/15/23 by Oumou Saenz MD amlodipine 5 mg PO DAILY blood sugar diagnostic (FreeStyle Lite Strips) test blood sugar once a day blood-glucose meter (FreeStyle Lite Meter kit) As directed cholecalciferol (vitamin D3) 25 mcg PO DAILY dulaglutide (Trulicity) 0.75 mg (0.5 mL) subcut QWEEK empagliflozin (Jardiance) 25 mg PO QAM lancets (FreeStyle Lancets) Test blood sugar once a day losartan-hydrochlorothiazide 100-25 mg 1 tab PO DAILY magnesium oxide 500 mg PO DAILY metoprolol succinate ER 50 mg PO QPM rosuvastatin 10 mg PO Q2D 90 days Tobacco use date assessed: 10/15/23 Dental Screening Dental Screen Date: 10/15/23 Did you have a dental visit in the last 12 months?: Yes Did you have a dental problem in the last 6 months where you did not have access to dental care?: Yes Was dental information given to patient?: Patient has dentist HPI 3 month follow up DM HPI Details 63-year-old lady here today for follow-up on her diabetes mellitus, hypertension hyperlipidemia she was doing well on Jardiance, Trulicity and metformin with a hemoglobin A1c at 6.3% in March 2023, bu developed abdominal cramping accompanied by nausea vomiting and diarrhea, taken off Trulicity and later metformin with improvement of symptoms reported. She only has been taking Jardiance and repeat hemoglobin A1c came back at 11.4% several days ago. We have recent restarted her back on Trulicity at 0.75 mg once a week, patient just started taking it Saturday10/11/2023, and she has been checking her sugars daily and has been noticing it dropping slowly, in the low 200s this morning. She also states that she has been off her diet and has been indulging in wine this past few weeks as well. Results of her recent fasting labs showed lipids are within normal limits except for elevated triglycerides, serum calcium was noted to be elevated and GFR was decreased with elevated BUN and creatinine , magnesium levels is within normal limits. She is also complaining of vaginal itching and a whitish vaginal discharge, likely yeast infection. [facility] Medical History Hypomagnesemia Irritable bowel syndrome with diarrhea Surgical menopause Ureteral calculus, left Mixed dyslipidemia Diabetes mellitus with microalbuminuria, without long-term current use of insulin History of uterine cancer Diabetes mellitus with kidney complication Essential hypertension Swine flu Hearing impaired Surgical History Status post laser lithotripsy of ureteral calculus History of total abdominal hysterectomy and bilateral salpingo-oophorectomy History of section Hx of cholecystectomy Family History Father Cancer of prostate Mother No problems noted. Sister Mental health disorder Social History Housing: House Alcohol intake: former Patient Tobacco Use Status: Never used Tobacco e-Cigarette/Vaping Use: Never Used Second Hand Smoke Exposure: No service: No Current occupational status: employed Cognitive needs: No Hearing needs: No Vision needs: Yes Questionnaire PHQ-9 Over the last 2 weeks, how often have you been bothered by any of the following problems? 1. Little interest or pleasure in doing things: not at all 2. Feeling down, depressed, or hopeless: not at all 3. Trouble falling or staying asleep, or sleeping too much: several days 4. Feeling tired or having little energy: several days 5. Poor appetite or overeating: not at all 6. Feeling bad about yourself - or that you are a failure or have let yourself or your family down: not at all 7. Trouble concentrating on things, such as reading the newspaper or watching television: not at all 8. Moving or speaking so slowly that other people could have noticed. Or the opposite - being so fidgety or restless that you have been moving around a lot more than usual: not at all 9. Thoughts that you would be better off or of hurting yourself in some way: not at all Total score: 2 Depression Screening Interpretation: Negative Depression Screening Done: Yes 06308 - PHQ-9 Billing: Yes Source: Developed by Drs. Abran Dumont, Geri Matson, Sid Pond and colleagues, with an educational nohemi from [employer]. Thrive Questionnaire Date Thrive assessed: 10/15/23 I am a: Patient What is your living situation today?: I have a steady place to live Within the past 12 months, did the food you bought not last and you didn't have the money to get more?: Never true Within the past 12 months, did you worry whether your food would run out before you got money to buy more?: Never true Do you have trouble paying for medicines?: No Do you have trouble getting transportation to medical appointments?: No Do you have trouble paying your heating and electricity bill?: No Do you have trouble taking care of your child, family member or friend?: No Do you have trouble with day-to-day activities such as bathing, preparing meals, shopping, managing finances, etc.?: No Are you currently unemployed and looking for a job?: No Are you interested in more education?: No THRIVE Score: 0 AUDIT C Alcohol Use Questionnaire (AUDIT-C) 1. How often do you have a drink containing alcohol?: Monthly or less 2. How many drinks containing alcohol do you have on a typical day when you are drinking?: 1 or 2 3. How often do you have six or more drinks on one occasion?: Never Total Score: 1 WILFREDO-7 AMB Questionnaire WILFREDO-7 Date WILFREDO - 7 assessed: 10/15/23 Feeling nervous, anxious, or on edge: 1 = Several days Not being able to stop or control worryin = Not at all Worrying too much about different things: 0 = Not at all Trouble relaxin = Not at all Being so restless that it is hard to sit still: 0 = Not at all Becoming easily annoyed or irritable: 0 = Not at all Feeling afraid as if something awful might happen: 0 = Not at all Total WILFREDO-7 score (0-4 normal; 5-9 mild; 10-14 moderate; 15-21 severe): 1 Source: Developed by Drs. Abran Dumont, Geri Matson, Sid Pond and colleagues, with an educational nohemi from [employer]. WILFREDO-7 Assessment Billing WILFREDO-7 Assessment Tool: WILFREDO-7 Assessment 25625 Review of Systems Const Denies body aches, Denies fatigue, Denies fever(s), Denies headache(s) and Denies weakness Eyes Details: She sees Dr. Flynn for her diabetes retinopathy screening and routine eye exam Denies change in vision ENT Denies dizziness, Denies headache(s), Denies nasal congestion, Denies nasal discharge and Denies sore throat Card Denies chest pain, Denies lightheadedness, Denies palpitations and Denies dyspnea Resp Denies chest congestion, Denies cough and Denies dyspnea GI Denies abdominal pain, Denies melena, Denies change in bowel habits, Denies GI cramping and Denies dyspepsia Reports as per HPI, Denies hematuria, Reports genital pruritis, Denies dysuria, Denies pelvic pain, Reports vaginal discharge and Reports vaginal pruritus Musc Reports no additional complaints Skin/Breast Denies lesions and Denies rash Neuro Denies dizziness, Denies headache(s), Denies focal weakness, Denies Sensory deficit (Neuro) and Denies weakness Psych Reports no additional complaints Endo Denies fatigue, Denies polydipsia and Denies palpitations Stu/Lymph Reports no additional complaints Aller/Immun Reports no additional complaints Physical exam (Primary Care) Vital Signs: Last Vital Signs Pulse 54 10/15/23 11:44 BP 122/64 10/15/23 11:44 Pulse Ox 98 10/15/23 11:44 Oxygen Delivery Method Room Air 10/15/23 11:44 BMI result Body Mass Index 27.1 Tobacco/Smoking Status: Tobacco use Status Tobacco use date assessed 10/15/23 10/15/23 11:49 Patient Tobacco Use Status Never used Tobacco 10/15/23 11:49 e-Cigarette/Vaping Use Never Used 10/15/23 11:49 PHQ-9: PHQ-9 Score PHQ-9: Total score 4 10/15/23 12:19 Depression Screening Interpretation: Negative Thrive Assessment: Date of Thrive Assessment Date Thrive assessed 10/15/23 10/15/23 12:19 Const General: comfortable and no acute distress Orientation/consciousness: patient oriented x3 HENMT Ears: external ears normal General nose exam: Normal external nose present Mouth: Normal oral and palatal mucosa present, tongue normal, oropharynx normal and moist mucous membranes Eyes General: appearance normal, both eyes and all related structures Neck Neck: Yes full ROM, Yes no lymphadenopathy and Yes supple Resp Effort & Inspection: normal respiratory effort and able to speak in complete sentences Auscultation: clear to auscultation bilaterally Cardio Rate: regular rate Rhythm: regular rhythm Heart sounds: S1 normal heart sound present and S2 normal heart sound present GI Inspection: Yes normal to inspection Palpation (GI): Soft to palpation, nontender and no masses General: Yes no CVA tenderness Back/Spine/Pelvis Back: no CVA tenderness and No back tenderness Skin General skin exam: no rashes or lesions noted Neuro General: patient oriented x3, gait normal, tone normal, moves all extremities, Normal light touch and pain sensation and no focal motor deficits Cognition (Neuro): normal cognition Gait exam (Neuro): Normal gait present Motor exam (neuro): 5/5 motor strength present throughout Sensory Exam: No Sensory deficit (Neuro) Extrem General: Yes full ROM, Yes no joint enlargement, Yes no pedal edema, Yes no calf tenderness and Yes normal gait Psych Appearance: grossly normal Mental Status: mental status grossly normal Speech and movement: Normal speech and movement present Affect: normal affect Attitude: cooperative Thought process: Normal thought process present Results Reviewed Results Reviewed: Laboratory Tests 10/11/23 10/11/23 08:05 08:18 Estimat Average Glucose 280 Hemoglobin A1c % 11.4 H Urine Creatinine 55.65 Urine Microalbumin 8.0 Microalb/Creat Ratio 14.3 brenda: Shanda Yancey Age/Sex: 63/F : 1960 Unit#: [id number] Attend Dr: Oumou Saenz MD Re10/11/23 Status: DEP REF Location: [facility] Disch: SPEC : [id number] RHONDA: 10/11/23 STATUS: COMP REQ : [id number] RECD: 10/11/23-[address]: Oumou Saenz MD COMP: 10/11/236 ENTERED: 10/11/[address] [facility] [address]: ORDERED: Met Prof Fast, MG, AST, ALT, Lipid Panel Test Result Flag Reference Sodium 138 135-145 mmol/L Potassium 4.5 3.3-5.1 mmol/L CL 98 96-108 mmol/L CO2 29 22-29 mmol/L Gap 16 12-20 BUN 44 H 9-16 mg/dL Creat 1.72 H 0.5-1.4 mg/dL EGFR 30 NOTE: For -[place] individuals, multiply the result by 1.210. Chronic Kidney Disease: Estimated GFR < 60 mL/min/1.73m2 Severe Kidney Disease: Estimated GFR < 15 mL/min/1.73m2 FBS 425 *H 60-99 mg/dL Critical value for test(s):GLU Results called to and read back by: MICHELINE Person calling:SULLIVV Date:10/11/2023 Time:11:10 A fasting glucose of 126 mg/dl or greater on more than one occasion is considered diagnostic of diabetes. CA 10.7 # H 8.4-10.2 mg/dL Magnesium 1.8 1.6-2.6 mg/dL AST (GOT) 11 5-31 U/L ALT (GPT) 11 0-31 U/L Triglyceride 272 H <150 mg/dL Desirable Triglyceride: less than 150 mg/dL Borderline High Triglyceride 150-199 mg/dL High Triglyceride: 200-499 mg/dL Very High Triglyceride: greater than or equal to 5OO mg/dL Cholesterol 153 <200 mg/dL Desirable Cholesterol: less than 200 mg/dL Borderline High Cholesterol: 200-239 mg/dL High Cholesterol: greater than 239 mg/dL LDL Calculated 52 <100 mg/dL Desirable LDL: less than 100 mg/dL Near Optimal/Above Optimal LDL: 110-129 mg/dL Borderline High LDL: 130-159 mg/dL High LDL: 160-189 mg/dL Very High LDL: greater than or equal to 190 mg/dL HDL 47 >40 mg/dL Desirable HDL: greater than 40 mg/dL Assessment and Plan Assessment & Plan (1) Hypercalcemia: Code(s): E83.52 - Hypercalcemia Plan: Ordered serum ionized calcium and intact parathyroid hormone (2) Mixed dyslipidemia: Code(s): E78.2 - Mixed hyperlipidemia Plan: Reviewed recent fasting lipid profile with patient with elevated triglycerides but LDL cholesterol and HDL and total cholesterol are all within normal limits. Continue with rosuvastatin 10 mg every other day . Reinforced importanceof of adherence to low-cholesterol diet and regular exercise, at least 30 minutes 3 to 4 times a week. Advised patient to make healthy food choices, eat more fruits, vegetables, whole grains, wild caught fish and low-fat dairy. Limit amount of meat and fried or fatty food products, as well as processed foods and fast foods. Follow-up scheduled with repeat fasting lipid panel in 3 months. (3) Diabetes mellitus with microalbuminuria, without long-term current use of insulin: Code(s): E11.29 - Type 2 diabetes mellitus with other diabetic kidney complication; R80.9 - Proteinuria, unspecified Qualifiers: Diabetes mellitus type: type 2 Qualified Code(s): E11.29 - Type 2 diabetes mellitus with other diabetic kidney complication; R80.9 - Proteinuria, unspecified Plan: Continue with Trulicity 0.75 mg 1 injection subcutaneously weekly, and continue with Jardiance 25 mg 1 tablet daily in a.m. an hour before breakfast. l continue to check fasting blood sugar at home, maintain log and bring to next appointment for review. Reinforced diabetic diet and regular exercise with patient. Counseled regarding importance of yearly diabetes retinopathy screening, diabetes retinopathy screening up-to-date, saw Dr. Flynn June 2023.. Patient advised to inspect feet daily, for any signs of injury, callus or infection. Compliance with diet and regular exercise again stressed, avoid alcohol. Blood pressure goal is less than 130/80, goal LDL is less than 100 and goal hemoglobin A1c is less than 7% follow-up appointment made in--3-months, after fasting labs done. (4) Essential hypertension: Code(s): I10 - Essential (primary) hypertension Plan: Blood pressure at goal of less than 130/80. Discontinue losartan-HCTZ and prescription sent for losartan 100 mg per tablet taken once a day in a.m., continue with metoprolol succinate ER 50 mg at night with supper, and continue amlodipine 5 mg daily. Reinforced importance of following a low sodium diet, getting regular exercise, and lowering stress levels. (5) Vaginal itching: Code(s): N89.8 - Other specified noninflammatory disorders of vagina Plan: Empirically treated for yeast infection with fluconazole 150 mg per tablet to take 1 tablet initially and then may repeat another dose after 72 hours if symptoms persists. Reinforced importance of getting diabetes mellitus in good control. Orders: Orders Calcium, Ionized 10/28/23 E83.52 - Hypercalcemia Lipid Panel 12/28/23 E11.29 - Type 2 diabetes mellitus with other diabetic kidney complication, E78.2 - Mixed hyperlipidemia, I10 - Essential (primary) hypertension, R80.9 - Proteinuria, unspecified Microalbumin, Random (w Creat) 12/28/23 E11.29 - Type 2 diabetes mellitus with other diabetic kidney complication, E78.2 - Mixed hyperlipidemia, I10 - Essential (primary) hypertension, R80.9 - Proteinuria, unspecified Vitamin D 25-OH Total 12/28/23.29 - Type 2 diabetes mellitus with other diabetic kidney complication, E78.2 - Mixed hyperlipidemia, I10 - Essential (primary) hypertension, R80.9 - Proteinuria, unspecified Parathyroid Hormone Intact 10/28/23 E83.52 - Hypercalcemia Comprehensive [place]. Panel Fast 12/28/23 E11.29 - Type 2 diabetes mellitus with other diabetic kidney complication, E78.2 - Mixed hyperlipidemia, I10 - Essential (primary) hypertension, R80.9 - Proteinuria, unspecified Hemoglobin A1c 12/28/23 E11.29 - Type 2 diabetes mellitus with other diabetic kidney complication, E78.2 - Mixed hyperlipidemia, I10 - Essential (primary) hypertension, R80.9 - Proteinuria, unspecified Medications: New losartan 100 mg PO DAILY 90 tabs 3RF fluconazole may repeat second dose 72 hrs after first dose if symptoms persist 150 mg PO Q3D PRN 2 tabs 1RF yeast infection Refilled metoprolol succinate ER 50 mg PO QPM 90 tabs 3RF I10 - Essential (primary) hypertension rosuvastatin 10 mg PO Q2D 90 days 45 tabs 3RF dulaglutide (Trulicity) 0.75 mg (0.5 mL) subcut QWEEK 2 mL 4RF E11.29 - Type 2 diabetes mellitus with other diabetic kidney complication, R80.9 - Proteinuria, unspecified amlodipine 5 mg PO DAILY 90 tabs 3RF Discontinued losartan-hydrochlorothiazide 100-25 mg Discontinued Reason: Doctor's Order 1 tab PO DAILY 90 tabs 1RF Coding Level of Care Code Est Pt Level 4 (50331) Diagnoses Hypercalcemia E83.52 Mixed dyslipidemia E78.2 Type 2 diabetes mellitus with microalbuminuria, without long-term current use of insulin E11.29; R80.9 Diabetes mellitus type: type 2 Essential hypertension I10 Vaginal itching N89.8 Additional Codes WILFREDO-7 Assessment Billing - WILFREDO-7 Assessment Tool: WILFREDO-7 Assessment 89278 ([id number])
== END 2023-10-15 12:48 | disposition home or self-care (01) ==
PROVIDERS: PCP Internal Medicine; Visit Provider Internal Medicine
DX: E83.52 Hypercalcemia (principal); E78.2 Mixed hyperlipidemia; E11.29 Type 2 diabetes mellitus with other diabetic kidney complication; R80.9 Proteinuria, unspecified; I10 Essential (primary) hypertension; N89.8 Other specified noninflammatory disorders of vagina
CPT/HCPCS: 99214

== ENCOUNTER 2023-10-31 08:56 | Outpatient (REF) | payer OTHER, SELFPAY ==
[2023-11-01 15:33] LABS: Calcium, Ionized 5.3 mg/dL (4.7-5.5)
== END 2023-10-31 08:57 | disposition home or self-care (01) ==
LOC: HO.HMGCLDS 08:56
PROVIDERS: PCP Internal Medicine; Visit Provider Internal Medicine
DX: E83.52 Hypercalcemia (principal)
CPT/HCPCS: 36415; 82330

== ENCOUNTER 2024-01-07 07:44 | Outpatient (REF) | payer OTHER, SELFPAY ==
[2024-01-07 10:58] LABS: Estimated Average Glucose 174 mg/dL; Hemoglobin A1c % 7.7 % (<6.0)
[2024-01-07 11:08] LABS: Creatinine Urine 79.09 mg/dL; Microalbum/Creatinine Ratio Ur 18.9 ug/mg cr (<30)
[2024-01-07 11:27] LABS: Anion Gap 14 (12-20); Carbon Dioxide 26 mmol/L (22-29); Chloride 106 mmol/L (96-108); Potassium 4.8 mmol/L (3.3-5.1); Sodium 141 mmol/L (135-145)
[2024-01-07 11:28] LABS: Alanine Aminotransferase 9 U/L (0-31); Albumin Level 3.9 g/dL (3.5-5.0); Alkaline Phosphatase 54 U/L (39-117); Aspartate Amino Transferase 14 U/L (5-31); Bilirubin Total 0.4 mg/dL (0.0-1.0); Calcium 9.9 mg/dL (8.4-10.2); Cholesterol 154 mg/dL (<200); Estimated Glomerular Filt Rate 47; Glucose Fasting 182 mg/dL (60-99); HDL Cholesterol 53 mg/dL (>40); LDL Cholesterol Calculated 69 mg/dL (<100); Total Protein 6.7 g/dL (6.5-8.0); Triglycerides 163 mg/dL (<150)
[2024-01-07 11:41] LABS: Vitamin D 25-OH Total 58.1 ng/mL (>30)
[2024-01-07 11:50] LABS: Blood Urea Nitrogen 35 mg/dL (9-16)
== END 2024-01-07 07:45 | disposition home or self-care (01) ==
LOC: HO.HMGCLDS 07:44
PROVIDERS: PCP Internal Medicine; Visit Provider Internal Medicine
DX: I10 Essential (primary) hypertension (principal); E11.29 Type 2 diabetes mellitus with other diabetic kidney complication; R80.9 Proteinuria, unspecified; E83.52 Hypercalcemia; E78.2 Mixed hyperlipidemia
CPT/HCPCS: 36415; 80053; 80061; 82043; 82306; 82570; 83036; 83970

== ENCOUNTER 2024-01-09 13:41 | Outpatient (AMB) | payer OTHER, SELFPAY ==
[2024-01-09 13:55] VITALS: BP 130/70; PULSE 92; O2SAT 97; BMI 27.3
--- NOTE | 2024-01-09 13:55 | MHC.PC.OV ---
Vital Signs 01/09/24 13:55 Height 5 ft 4 in Weight 159 lb 4 oz BMI 27.3 BP 130/70 Blood Pressure Location Lt brachial Position Sitting Pulse 92 Pulse Source Pulse Oximeter Pulse Oximetry (%) 97 Oxygen Delivery Method Room Air Intake Visit Reasons: 3 month follow up DM Intake Note: Pt is here today for 3M follow up Allergies Sulfa (Sulfonamide Antibiotics) [SULFA (SULFONAMIDE ANTIBIOTICS)] Allergy (Intermediate, Verified 01/26/24 20:33) HIVES Medication List - Last Reconciled 01/09/24 by Oumou Saenz MD amlodipine 5 mg PO DAILY blood sugar diagnostic (FreeStyle Lite Strips) test blood sugar once a day blood-glucose meter (FreeStyle Lite Meter kit) As directed cholecalciferol (vitamin D3) 25 mcg PO DAILY dulaglutide (Trulicity) 0.75 mg (0.5 mL) subcut QWEEK empagliflozin (Jardiance) 25 mg PO QAM lancets (FreeStyle Lancets) Test blood sugar once a day losartan 100 mg PO DAILY magnesium oxide 500 mg PO DAILY metformin 1,000 mg PO BID metoprolol succinate ER 50 mg PO QPM rosuvastatin 10 mg PO Q2D 90 days Tobacco use date assessed: 01/09/24 Dental Screening Dental Screen Date: 01/09/24 Did you have a dental visit in the last 12 months?: Yes Did you have a dental problem in the last 6 months where you did not have access to dental care?: No Was dental information given to patient?: Patient has dentist HPI 3 month follow up DM HPI Details 63-year-old lady here today for follow-up on her diabetes mellitus. Currently taking empagliflozin 25 mg daily in a.m., metformin a 1000 mg twice a day, and Trulicity 0.75 mg injected once a week. [facility] Medical History Hypomagnesemia Irritable bowel syndrome with diarrhea Surgical menopause Ureteral calculus, left Mixed dyslipidemia Diabetes mellitus with microalbuminuria, without long-term current use of insulin History of uterine cancer Diabetes mellitus with kidney complication Essential hypertension Swine flu Hearing impaired Surgical History Status post laser lithotripsy of ureteral calculus History of total abdominal hysterectomy and bilateral salpingo-oophorectomy History of section Hx of cholecystectomy Family History Father Cancer of prostate Mother No problems noted. Sister Mental health disorder Social History Housing: House Alcohol intake: former Patient Tobacco Use Status: Never used Tobacco e-Cigarette/Vaping Use: Never Used Second Hand Smoke Exposure: No service: No Current occupational status: employed Cognitive needs: No Hearing needs: No Vision needs: Yes Questionnaire Thrive Questionnaire Date Thrive assessed: 10/15/23 AUDIT C Alcohol Use Questionnaire (AUDIT-C) 1. How often do you have a drink containing alcohol?: Monthly or less 2. How many drinks containing alcohol do you have on a typical day when you are drinking?: 1 or 2 3. How often do you have six or more drinks on one occasion?: Never Total Score: 1 Score Reviewed/Action Taken: Yes WILFREDO-7 AMB Questionnaire WILFREDO-7 Date WILFREDO - 7 assessed: 10/15/23 Source: Developed by Drs. Abran Dumont, Geri Matson, Sid Pond and colleagues, with an educational nohemi from [employer]. Review of Systems Const Denies body aches, Denies fatigue, Denies fever(s), Denies headache(s) and Denies weakness Eyes Details: She sees Dr. Flynn for her diabetes retinopathy screening and routine eye exam Denies change in vision ENT Denies dizziness, Denies headache(s), Denies nasal congestion, Denies nasal discharge and Denies sore throat Card Denies chest pain, Denies lightheadedness, Denies palpitations and Denies dyspnea Resp Denies chest congestion, Denies cough and Denies dyspnea GI Denies abdominal pain, Denies melena, Denies change in bowel habits, Denies GI cramping and Denies dyspepsia Denies hematuria and Denies dysuria Musc Reports no additional complaints Skin/Breast Denies lesions and Denies rash Neuro Denies dizziness, Denies headache(s), Denies focal weakness, Denies Sensory deficit (Neuro) and Denies weakness Psych Reports no additional complaints Endo Denies fatigue, Denies polydipsia and Denies palpitations Stu/Lymph Reports no additional complaints Aller/Immun Reports no additional complaints Physical exam (Primary Care) Vital Signs: Last Vital Signs Pulse 92 01/09/24 13:55 BP 130/70 01/09/24 13:55 Pulse Ox 97 01/09/24 13:55 Oxygen Delivery Method Room Air 01/09/24 13:55 BMI result Body Mass Index 27.3 Tobacco/Smoking Status: Tobacco use Status Tobacco use date assessed 01/09/24 01/09/24 13:57 Patient Tobacco Use Status Never used Tobacco 01/09/24 13:57 e-Cigarette/Vaping Use Never Used 01/09/24 13:57 Thrive Assessment: Date of Thrive Assessment Date Thrive assessed 10/15/23 01/09/24 13:57 Const General: comfortable and no acute distress Orientation/consciousness: patient oriented x3 HENMT Ears: external ears normal General nose exam: Normal external nose present Mouth: Normal oral and palatal mucosa present, tongue normal, oropharynx normal and moist mucous membranes Eyes General: appearance normal, both eyes and all related structures Neck Neck: Yes full ROM, Yes no lymphadenopathy and Yes supple Resp Effort & Inspection: normal respiratory effort and able to speak in complete sentences Auscultation: clear to auscultation bilaterally Cardio Rate: regular rate Rhythm: regular rhythm Heart sounds: S1 normal heart sound present and S2 normal heart sound present GI Inspection: Yes normal to inspection Palpation (GI): Soft to palpation, nontender and no masses General: Yes no CVA tenderness Back/Spine/Pelvis Back: no CVA tenderness and No back tenderness Skin General skin exam: no rashes or lesions noted Neuro General: patient oriented x3, gait normal, tone normal, moves all extremities, Normal light touch and pain sensation and no focal motor deficits Cognition (Neuro): normal cognition Gait exam (Neuro): Normal gait present Motor exam (neuro): 5/5 motor strength present throughout Sensory Exam: No Sensory deficit (Neuro) Extrem General: Yes full ROM, Yes no joint enlargement, Yes no pedal edema, Yes no calf tenderness and Yes normal gait Psych Appearance: grossly normal Mental Status: mental status grossly normal Speech and movement: Normal speech and movement present Affect: normal affect Attitude: cooperative Thought process: Normal thought process present Results Reviewed Results Reviewed: Laboratory Tests 01/07/24 01/07/24 07:50 08:00 Estimat Average Glucose 174 Hemoglobin A1c % 7.7 H Urine Creatinine 79.09 Urine Microalbumin 15.0 Microalb/Creat Ratio 18.9 brenda: Allen DeandreShanda Wilkes Age/Sex: 63/F : 1960 Unit#: [id number] Attend Dr: Oumou Saenz MD Re01/07/24 Status: DEP REF Location: [facility] Disch: SPEC : [id number] RHONDA: 01/07/24 STATUS: COMP REQ : [id number] RECD: 01/07/24-[address]: Oumou Saenz MD COMP: 01/07/24 ENTERED: 01/07/24-[address] [facility] [address]: ORDERED: CMP Fast, Lipid Panel, Vitamin D 25-OH Test Result Flag Reference Sodium 141 135-145 mmol/L Potassium 4.8 3.3-5.1 mmol/L CL 106 96-108 mmol/L CO2 26 22-29 mmol/L Gap 14 12-20 BUN 35 H 9-16 mg/dL Creat 1.16 0.5-1.4 mg/dL EGFR 47 NOTE: For -[place] individuals, multiply the result by 1.210. Chronic Kidney Disease: Estimated GFR < 60 mL/min/1.73m2 Severe Kidney Disease: Estimated GFR < 15 mL/min/1.73m2 FBS 182 H 60-99 mg/dL A fasting glucose of 126 mg/dl or greater on more than one occasion is considered diagnostic of diabetes. CA 9.9 # 8.4-10.2 mg/dL Total Bili 0.4 0.0-1.0 mg/dL AST (GOT) 14 5-31 U/L ALT (GPT) 9 0-31 U/L Protein, Total 6.7 6.5-8.0 g/dL Alb 3.9 3.5-5.0 g/dL Triglyceride 163 H <150 mg/dL Desirable Triglyceride: less than 150 mg/dL Borderline High Triglyceride 150-199 mg/dL High Triglyceride: 200-499 mg/dL Very High Triglyceride: greater than or equal to 5OO mg/dL Cholesterol 154 <200 mg/dL Desirable Cholesterol: less than 200 mg/dL Borderline High Cholesterol: 200-239 mg/dL High Cholesterol: greater than 239 mg/dL LDL Calculated 69 <100 mg/dL Desirable LDL: less than 100 mg/dL Near Optimal/Above Optimal LDL: 110-129 mg/dL Borderline High LDL: 130-159 mg/dL High LDL: 160-189 mg/dL Very High LDL: greater than or equal to 190 mg/dL HDL 53 >40 mg/dL Desirable HDL: greater than 40 mg/dL Note: This HDL assay may give artificially low results in patients with liver disease. Alk Phos 54 39-117 U/L Vit D 25-OH Tot 58.1 >30 ng/mL Health Based Reference Values* < 20 ng/mL Deficient 20-30 ng/mL Insufficient > 30 ng/mL Sufficient Assessment and Plan Assessment & Plan (1) Diabetes mellitus with microalbuminuria, without long-term current use of insulin: Code(s): E11.29 - Type 2 diabetes mellitus with other diabetic kidney complication; R80.9 - Proteinuria, unspecified Plan: Improved diabetes control, but still not at goal of less than 6.5%. Continued on Trulicity, Jardiance, and metformin (2) Essential hypertension: Code(s): I10 - Essential (primary) hypertension Plan: Blood pressure at goal of less than 130/80. Continue with current medication. Reinforced importance of following a low sodium diet, getting regular exercise, and lowering stress levels. (3) Mixed dyslipidemia: Code(s): E78.2 - Mixed hyperlipidemia Plan: Continue rosuvastatin 10 mg every other day Orders: Orders Hemoglobin A1c 04/28/24 E78.2 - Mixed hyperlipidemia, E11.29 - Type 2 diabetes mellitus with other diabetic kidney complication, R80.9 - Proteinuria, unspecified, I10 - Essential (primary) hypertension Aspartate Amino Transferase 04/28/24 E78.2 - Mixed hyperlipidemia, E11.29 - Type 2 diabetes mellitus with other diabetic kidney complication, R80.9 - Proteinuria, unspecified, I10 - Essential (primary) hypertension Basic Metabolic Panel Fasting 04/28/24 E78.2 - Mixed hyperlipidemia, E11.29 - Type 2 diabetes mellitus with other diabetic kidney complication, R80.9 - Proteinuria, unspecified, I10 - Essential (primary) hypertension Alanine Aminotransferase 04/28/24 E78.2 - Mixed hyperlipidemia, E11.29 - Type 2 diabetes mellitus with other diabetic kidney complication, R80.9 - Proteinuria, unspecified, I10 - Essential (primary) hypertension Lipid Panel 04/28/24 E78.2 - Mixed hyperlipidemia, E11.29 - Type 2 diabetes mellitus with other diabetic kidney complication, R80.9 - Proteinuria, unspecified, I10 - Essential (primary) hypertension Medications: New metformin 1,000 mg PO BID 180 tabs 4RF 3 months Refilled metoprolol succinate ER 50 mg PO QPM 90 tabs 3RF I10 - Essential (primary) hypertension empagliflozin (Jardiance) 25 mg PO QAM 90 tabs 3RF dulaglutide (Trulicity) 0.75 mg (0.5 mL) subcut QWEEK 2 mL 4RF E11.29 - Type 2 diabetes mellitus with other diabetic kidney complication, R80.9 - Proteinuria, unspecified Coding Level of Care Code Est Pt Level 4 (51134) Complex EM visit Add On G2211 Diagnoses Diabetes mellitus with microalbuminuria, without long-term current use of insulin E11.29; R80.9 Essential hypertension I10 Mixed dyslipidemia E78.2
== END 2024-01-09 14:39 | disposition home or self-care (01) ==
PROVIDERS: PCP Internal Medicine; Visit Provider Internal Medicine
DX: E11.29 Type 2 diabetes mellitus with other diabetic kidney complication (principal); R80.9 Proteinuria, unspecified; I10 Essential (primary) hypertension; E78.2 Mixed hyperlipidemia
CPT/HCPCS: 99214; G2211

== ENCOUNTER 2024-04-27 07:07 | Outpatient (REF) | payer OTHER, SELFPAY ==
[2024-04-27 10:48] LABS: Alanine Aminotransferase 10 U/L (0-31); Anion Gap 11 (12-20); Aspartate Amino Transferase 13 U/L (5-31); Blood Urea Nitrogen 28 mg/dL (9-16); Calcium 9.8 mg/dL (8.4-10.2); Carbon Dioxide 26 mmol/L (22-29); Chloride 108 mmol/L (96-108); Cholesterol 141 mg/dL (<200); Estimated Glomerular Filt Rate 54; Glucose Fasting 160 mg/dL (60-99); HDL Cholesterol 48 mg/dL (>40); LDL Cholesterol Calculated 61 mg/dL (<100); Potassium 4.4 mmol/L (3.3-5.1); Sodium 141 mmol/L (135-145); Triglycerides 160 mg/dL (<150)
[2024-04-27 10:53] LABS: Estimated Average Glucose 151 mg/dL; Hemoglobin A1c % 6.9 % (<6.0)
== END 2024-04-27 07:08 | disposition home or self-care (01) ==
LOC: HO.HMGCLDS 07:07
PROVIDERS: PCP Internal Medicine; Visit Provider Internal Medicine
DX: I10 Essential (primary) hypertension (principal); R80.9 Proteinuria, unspecified; E11.29 Type 2 diabetes mellitus with other diabetic kidney complication; E78.2 Mixed hyperlipidemia
CPT/HCPCS: 36415; 80048; 80061; 83036; 84450; 84460

== ENCOUNTER 2024-04-29 11:39 | Outpatient (AMB) | payer OTHER, SELFPAY ==
[2024-04-29 11:54] VITALS: BP 146/70; PULSE 83; O2SAT 97; BMI 27.3
--- NOTE | 2024-04-29 11:54 | MHC.PC.OV ---
Vital Signs 04/29/24 11:54 04/29/24 12:31 Height 5 ft 4 in Weight 159 lb BMI 27.3 BP 146/70 H 135/85 Blood Pressure Location Rt brachial Rt brachial Position Sitting Sitting Pulse 83 Pulse Source Pulse Oximeter Pulse Oximetry (%) 97 Oxygen Delivery Method Room Air Intake Visit Reasons: Follow up lab work Intake Note: Pt is here today for her lab results Allergies Sulfa (Sulfonamide Antibiotics) [SULFA (SULFONAMIDE ANTIBIOTICS)] Allergy (Intermediate, Verified 04/29/24 11:54) HIVES Medication List - Last Reconciled 04/30/24 by Oumou Saenz MD amlodipine 5 mg PO DAILY blood sugar diagnostic (FreeStyle Lite Strips) test blood sugar once a day blood-glucose meter (FreeStyle Lite Meter kit) As directed cholecalciferol (vitamin D3) 25 mcg PO DAILY dulaglutide (Trulicity) 0.75 mg (0.5 mL) subcut QWEEK empagliflozin (Jardiance) 25 mg PO QAM fluconazole 150 mg PO Q3D PRN 2 doses lancets (FreeStyle Lancets) Test blood sugar once a day losartan 100 mg PO DAILY magnesium oxide 500 mg PO DAILY metformin 1,000 mg PO BID 3 months metoprolol succinate ER 50 mg PO QPM rosuvastatin 10 mg PO Q2D 90 days Tobacco use date assessed: 04/29/24 Dental Screening Dental Screen Date: 04/29/24 Did you have a dental visit in the last 12 months?: Yes Did you have a dental problem in the last 6 months where you did not have access to dental care?: Yes Was dental information given to patient?: Patient has dentist HPI Follow up lab work HPI Details 63-year-old lady with hypertension, diabetes mellitus, and dyslipidemia, here today for follow-up. She has been compliant with taking medication, has been active, exercises regularly and tries to follow recommended diet. She has been feeling well, with no complaints at present time. [facility] Medical History Hypomagnesemia Irritable bowel syndrome with diarrhea Surgical menopause Ureteral calculus, left Mixed dyslipidemia Diabetes mellitus with microalbuminuria, without long-term current use of insulin History of uterine cancer Diabetes mellitus with kidney complication Essential hypertension Swine flu Hearing impaired Surgical History Status post laser lithotripsy of ureteral calculus History of total abdominal hysterectomy and bilateral salpingo-oophorectomy History of section Hx of cholecystectomy Family History Father Cancer of prostate Mother No problems noted. Sister Mental health disorder Social History Housing: House Alcohol intake: former Patient Tobacco Use Status: Never used Tobacco e-Cigarette/Vaping Use: Never Used Second Hand Smoke Exposure: No service: No Current occupational status: employed Cognitive needs: No Hearing needs: No Vision needs: Yes Questionnaire PHQ-9 Over the last 2 weeks, how often have you been bothered by any of the following problems? 1. Little interest or pleasure in doing things: not at all 2. Feeling down, depressed, or hopeless: not at all 3. Trouble falling or staying asleep, or sleeping too much: not at all 4. Feeling tired or having little energy: not at all 5. Poor appetite or overeating: not at all 6. Feeling bad about yourself - or that you are a failure or have let yourself or your family down: not at all 7. Trouble concentrating on things, such as reading the newspaper or watching television: not at all 8. Moving or speaking so slowly that other people could have noticed. Or the opposite - being so fidgety or restless that you have been moving around a lot more than usual: not at all 9. Thoughts that you would be better off or of hurting yourself in some way: not at all Total score: 0 Depression Screening Interpretation: Negative Depression Screening Done: Yes 12681 - PHQ-9 Billing: Yes Source: Developed by Drs. Abran Dumont, Geri Matson, Sid Pond and colleagues, with an educational nohemi from [employer]. Thrive Questionnaire Date Thrive assessed: 04/29/24 I am a: Patient What is your living situation today?: I choose not to answer this question Within the past 12 months, did the food you bought not last and you didn't have the money to get more?: I choose not to answer this question Within the past 12 months, did you worry whether your food would run out before you got money to buy more?: I choose not to answer this question Do you have trouble paying for medicines?: I choose not to answer this question Do you have trouble getting transportation to medical appointments?: I choose not to answer this question Do you have trouble paying your heating and electricity bill?: I choose not to answer this question Do you have trouble taking care of your child, family member or friend?: I choose not to answer this question Do you have trouble with day-to-day activities such as bathing, preparing meals, shopping, managing finances, etc.?: I choose not to answer this question Are you interested in more education?: I choose not to answer this question Please select the resources that you would like help with: None Currently or been in a relationship where the following occur: No concerns reported THRIVE Score: 0 AUDIT C Alcohol Use Questionnaire (AUDIT-C) 2. How many drinks containing alcohol do you have on a typical day when you are drinking?: 1 or 2 Total Score: 0 WILFREDO-7 AMB Questionnaire WILFREDO-7 Date WILFREDO - 7 assessed: 04/29/24 Feeling nervous, anxious, or on edge: 0 = Not at all Not being able to stop or control worryin = Not at all Worrying too much about different things: 0 = Not at all Trouble relaxin = Not at all Being so restless that it is hard to sit still: 0 = Not at all Becoming easily annoyed or irritable: 0 = Not at all Feeling afraid as if something awful might happen: 0 = Not at all Total WILFREDO-7 score (0-4 normal; 5-9 mild; 10-14 moderate; 15-21 severe): 0 Source: Developed by Drs. Abran Dumont, Geri Matson, Sid Pond and colleagues, with an educational nohemi from [employer]. WILFREDO-7 Assessment Billing WILFREDO-7 Assessment Tool: WILFREDO-7 Assessment 82615 Review of Systems Const Denies body aches, Denies fatigue, Denies fever(s), Denies headache(s) and Denies weakness Eyes Details: Has an appointment for follow-up for diabetes retinopathy screening with Dr. Flynn in 4 month Denies change in vision ENT Denies dizziness, Denies headache(s), Denies nasal congestion and Denies nasal discharge Card Denies chest pain, Denies lightheadedness, Denies palpitations and Denies dyspnea Resp Denies chest congestion, Denies cough and Denies dyspnea GI Denies abdominal pain, Denies melena, Denies change in bowel habits, Denies GI cramping and Denies dyspepsia Denies hematuria and Denies dysuria Musc Reports no additional complaints Skin/Breast Denies lesions and Denies rash Neuro Denies dizziness, Denies headache(s), Denies focal weakness, Denies Sensory deficit (Neuro) and Denies weakness Psych Reports no additional complaints Endo Denies fatigue, Denies polydipsia and Denies palpitations Stu/Lymph Reports no additional complaints Aller/Immun Reports no additional complaints Physical exam (Primary Care) Vital Signs: Last Vital Signs Pulse 83 04/29/24 11:54 BP 135/85 04/29/24 12:31 Pulse Ox 97 04/29/24 11:54 Oxygen Delivery Method Room Air 04/29/24 11:54 BMI result Body Mass Index 27.3 Tobacco/Smoking Status: Tobacco use Status Tobacco use date assessed 04/29/24 04/29/24 12:09 Patient Tobacco Use Status Never used Tobacco 04/29/24 11:56 e-Cigarette/Vaping Use Never Used 04/29/24 11:56 PHQ-9: PHQ-9 Score PHQ-9: Total score 0 04/29/24 12:23 Depression Screening Interpretation: Negative Thrive Assessment: Date of Thrive Assessment Date Thrive assessed 04/29/24 04/29/24 12:09 Currently or been in a relationship where the following occur: No concerns reported Const General: comfortable and no acute distress Orientation/consciousness: patient oriented x3 HENMT Ears: external ears normal General nose exam: Normal external nose present Mouth: Normal oral and palatal mucosa present, tongue normal, oropharynx normal and moist mucous membranes Eyes General: appearance normal, both eyes and all related structures Neck Neck: Yes full ROM, Yes no lymphadenopathy and Yes supple Resp Effort & Inspection: normal respiratory effort and able to speak in complete sentences Auscultation: clear to auscultation bilaterally Cardio Rate: regular rate Rhythm: regular rhythm Heart sounds: S1 normal heart sound present and S2 normal heart sound present GI Inspection: Yes normal to inspection Palpation (GI): Soft to palpation, nontender and no masses General: Yes no CVA tenderness Back/Spine/Pelvis Back: no CVA tenderness and No back tenderness Skin General skin exam: no rashes or lesions noted Neuro General: patient oriented x3, gait normal, tone normal, moves all extremities, Normal light touch and pain sensation and no focal motor deficits Cognition (Neuro): normal cognition Gait exam (Neuro): Normal gait present Motor exam (neuro): 5/5 motor strength present throughout Sensory Exam: No Sensory deficit (Neuro) Extrem General: Yes full ROM, Yes no joint enlargement, Yes no pedal edema, Yes no calf tenderness and Yes normal gait Psych Appearance: grossly normal Mental Status: mental status grossly normal Speech and movement: Normal speech and movement present Affect: normal affect Attitude: cooperative Thought process: Normal thought process present Office Procedures Flu Questionnaire Does the patient have a severe egg allergy?: No Does the patient have severe life threatening allergies?: No Does the patient have a fever or illness today?: No Has the patient ever had Guillain-Donna Syndrome?: No Has the patient ever had any past reaction to a flu shot?: No Immunizations Fluarix Triv [id number] (PF) 45 mcg (15 mcg x 3)/0.5 mL IM syringe Performing Provider: Oumou Saenz MD Performing Location: [facility] Administered by: Eva Quezada CMA on 04/29/24 12:10 Dose Route Admin Location Dispensed Lot Number Expiration Date PAC Charrer 0.5 mL IM Left Deltoid 0.5 mL [id number] 01/25/25 [id number] [employer] VIS Given Date VIS Provided VIS Publication Date 04/29/24 Single Vaccine 21 Eligibility Eligibility Date Funding Source Not [facility] Eligible 04/29/24 Private Results Reviewed Results Reviewed: Laboratory Tests 10/11/23 01/07/24 04/27/24 08:05 07:50 07:18 Estimat Average Glucose 280 174 151 Hemoglobin A1c % 11.4 H 7.7 H 6.9 H brenda: Shanda Yancey Age/Sex: 63/F : 1960 Unit#: [id number] Attend Dr: Oumou Saenz MD Re04/27/24 Status: DEP REF Location: [facility] Disch: SPEC : [id number] RHONDA: 04/27/24-717 STATUS: COMP REQ : [id number] RECD: 04/27/24-[address]: Oumou Saenz MD COMP: 04/27/24-8 ENTERED: 04/27/24-716 [facility] DR: ORDERED: Met Prof Fast, AST, ALT, Lipid Panel Test Result Flag Reference Sodium 141 135-145 mmol/L Potassium 4.4 3.3-5.1 mmol/L CL 108 96-108 mmol/L CO2 26 22-29 mmol/L Gap 11 L 12-20 BUN 28 H 9-16 mg/dL Creat 1.03 0.5-1.4 mg/dL EGFR 54 NOTE: For -Citizen Of [place] individuals, multiply the result by 1.210. Chronic Kidney Disease: Estimated GFR < 60 mL/min/1.73m2 Severe Kidney Disease: Estimated GFR < 15 mL/min/1.73m2 FBS 160 H 60-99 mg/dL A fasting glucose of 126 mg/dl or greater on more than one occasion is considered diagnostic of diabetes. CA 9.8 8.4-10.2 mg/dL AST (GOT) 13 5-31 U/L ALT (GPT) 10 0-31 U/L Triglyceride 160 H <150 mg/dL Desirable Triglyceride: less than 150 mg/dL Borderline High Triglyceride 150-199 mg/dL High Triglyceride: 200-499 mg/dL Very High Triglyceride: greater than or equal to 5OO mg/dL Cholesterol 141 <200 mg/dL Desirable Cholesterol: less than 200 mg/dL Borderline High Cholesterol: 200-239 mg/dL High Cholesterol: greater than 239 mg/dL LDL Calculated 61 <100 mg/dL Desirable LDL: less than 100 mg/dL Near Optimal/Above Optimal LDL: 110-129 mg/dL Borderline High LDL: 130-159 mg/dL High LDL: 160-189 mg/dL Very High LDL: greater than or equal to 190 mg/dL HDL 48 >40 mg/dL Desirable HDL: greater than 40 mg/dL Note: This HDL assay may give artificially low results in patients with liver disease. Coding Level of Care Code Est Pt Level 4 (19368) Complex EM visit Add On G2211 Diagnoses Essential hypertension I10 Diabetes mellitus with microalbuminuria, without long-term current use of insulin E11.29; R80.9 Mixed dyslipidemia E78.2 Vaginal pruritus N89.8 Additional Codes WILFREDO-7 Assessment Billing - WILFREDO-7 Assessment Tool: WILFREDO-7 Assessment 40798 ([id number]) Assessment & Plan Assessment & Plan (1) Essential hypertension: Code(s): I10 - Essential (primary) hypertension Category: Medical Plan: Blood pressure at goal of less than 130/80. Continue amlodipine 5 mg daily, and metformin a 1000 mg twice a day in addition to metoprolol succinate ER 50 mg at night. Reinforced importance of following a low sodium diet, getting regular exercise, and lowering stress levels. (2) Diabetes mellitus with microalbuminuria, without long-term current use of insulin: Code(s): E11.29 - Type 2 diabetes mellitus with other diabetic kidney complication; R80.9 - Proteinuria, unspecified Category: Medical Plan: Improvement in her diabetes control noted with hemoglobin A1c now lower than last check, will continue on metformin, Trulicity and Jardiance. Patient reports some vaginal itching for the last couple of days, prescription also sent for fluconazole tablets to take as directed (3) Mixed dyslipidemia: Code(s): E78.2 - Mixed hyperlipidemia Category: Medical Plan: Reviewed recent fasting lipid profile with patient with levels within normal limits . Continue rosuvastatin 10 mg 1 tablet every other day , in addition to adherence to low-cholesterol diet and regular exercise, at least 30 minutes 3 to 4 times a week. Advised patient to make healthy food choices, eat more fruits, vegetables, whole grains, wild caught fish and low-fat dairy. Limit amount of meat and fried or fatty food products, as well as processed foods and fast foods. Follow-up scheduled with repeat fasting lipid panel in 6 months. (4) Vaginal pruritus: Code(s): N89.8 - Other specified noninflammatory disorders of vagina Plan: Prescription sent for fluconazole to take as directed, likely infection due to Jardiance Orders: Orders Microalbumin, Random (w Creat) 10/27/24 E11.29 - Type 2 diabetes mellitus with other diabetic kidney complication, E78.2 - Mixed hyperlipidemia, E89.40 - Asymptomatic postprocedural ovarian failure, I10 - Essential (primary) hypertension, R80.9 - Proteinuria, unspecified Aspartate Amino Transferase 10/27/24 E11.29 - Type 2 diabetes mellitus with other diabetic kidney complication, E78.2 - Mixed hyperlipidemia, E89.40 - Asymptomatic postprocedural ovarian failure, I10 - Essential (primary) hypertension, R80.9 - Proteinuria, unspecified Basic Metabolic Panel Fasting 10/27/24 E11.29 - Type 2 diabetes mellitus with other diabetic kidney complication, E78.2 - Mixed hyperlipidemia, E89.40 - Asymptomatic postprocedural ovarian failure, I10 - Essential (primary) hypertension, R80.9 - Proteinuria, unspecified Vitamin D 25-OH Total 10/27/24 E11.29 - Type 2 diabetes mellitus with other diabetic kidney complication, E78.2 - Mixed hyperlipidemia, E89.40 - Asymptomatic postprocedural ovarian failure, I10 - Essential (primary) hypertension, R80.9 - Proteinuria, unspecified Influenza [id number] Immunization 04/29/24 Z23 - Encounter for immunization Lipid Panel 10/27/24 E11.29 - Type 2 diabetes mellitus with other diabetic kidney complication, E78.2 - Mixed hyperlipidemia, E89.40 - Asymptomatic postprocedural ovarian failure, I10 - Essential (primary) hypertension, R80.9 - Proteinuria, unspecified Hemoglobin A1c 10/27/24 E11.29 - Type 2 diabetes mellitus with other diabetic kidney complication, E78.2 - Mixed hyperlipidemia, E89.40 - Asymptomatic postprocedural ovarian failure, I10 - Essential (primary) hypertension, R80.9 - Proteinuria, unspecified Alanine Aminotransferase 10/27/24 E11.29 - Type 2 diabetes mellitus with other diabetic kidney complication, E78.2 - Mixed hyperlipidemia, E89.40 - Asymptomatic postprocedural ovarian failure, I10 - Essential (primary) hypertension, R80.9 - Proteinuria, unspecified Medications: New fluconazole may repeat second dose 72 hrs after first dose if symptoms persist 150 mg PO Q3D PRN 2 tabs 0RF Vaginal itching 2 doses
[2024-04-29 12:31] VITALS: BP 135/85
== END 2024-04-29 13:38 | disposition home or self-care (01) ==
PROVIDERS: PCP Internal Medicine; Visit Provider Internal Medicine
DX: I10 Essential (primary) hypertension (principal); E11.29 Type 2 diabetes mellitus with other diabetic kidney complication; R80.9 Proteinuria, unspecified; E78.2 Mixed hyperlipidemia; N89.8 Other specified noninflammatory disorders of vagina; Z23 Encounter for immunization

== ENCOUNTER → 2024-04-29 11:39 | Outpatient (BNVA) | payer OTHER, SELFPAY | PROVIDERS: PCP Internal Medicine; Visit Provider Internal Medicine | DX: I10 Essential (primary) hypertension (principal); E11.29 Type 2 diabetes mellitus with other diabetic kidney complication; R80.9 Proteinuria, unspecified; E78.2 Mixed hyperlipidemia; N89.8 Other specified noninflammatory disorders of vagina; Z79.899 Other long term (current) drug therapy; Z23 Encounter for immunization | CPT/HCPCS: 90471; 90656; 96127 ==

== ENCOUNTER 2024-10-06 08:41 | Outpatient (REF) | payer OTHER, SELFPAY ==
--- OUTSIDE RECORDS SUMMARY | 2024-10-06 09:30 | XMS_ITS | Clinical Summary ---
Author Organization [facility] Address [address] [place] [phone] Phone Care Team Providers Care Kiln Tester Name Role Phone Camilla Saenz MD Primary Care Provider [phone] Allergies Active Allergy Reactions Criticality Noted Date Comments Sulfa Antibiotics 07/26/2020 Medications metFORMIN (GLUCOPHAGE) 1000 MG tablet Take 1,000 mg by mouth 2 (two) times a day with meals Active rosuvastatin (CRESTOR) 5 MG tablet Take 10 mg by mouth every other day 09/07/2020 Active Magnesium 250 MG tablet Take 2 tablets by mouth 1 (one) time each day Active losartan-hydroC HLOROthiazide (HYZAAR) 100-25 MG per tablet Take 1 tablet by mouth 1 (one) time each day Active Cholecalciferol (Vitamin D) 50 MCG (1999 UT) capsule Take 1 tablet by mouth 1 (one) time each day Active Empagliflozin (Jardiance) 25 MG tablet Take 25 mg by mouth 1 (one) time each day in the morning Active metoprolol tartrate (LOPRESSOR) 50 MG tablet Take 50 mg by mouth in the morning and 50 mg in the evening. Active amLODIPine (NORVASC) 5 MG tablet Take 5 mg by mouth 1 (one) time each day Active omeprazole OTC (PriLOSEC OTC) 20 MG EC tablet Take 20 mg by mouth 1 (one) time each day Do not crush, chew, or split. Active Active Problems Problem Noted Date Diagnosed Date Cancer of endometrium 03/28/2022 Diabetes mellitus 12/14/2020 Overview (12/14/2020): Last Assessment & Plan: Patient is on three oral antihyperglycemic agents as well as a weekly subcu agent which will be held -I have placed her on Lantus, small dose of 5 units nightly as well as 4 units of Humalog with meals and sliding scale Hypertensive disorder 12/14/2020 Overview (12/14/2020): Last Assessment & Plan: Continue outpatient medical regimen Renal stone 12/14/2020 Hydronephrosis 07/26/2020 Obstructive nephropathy 07/26/2020 Overview (12/14/2020): Last Assessment & Plan: CT scan showed a 6 mm left obstructing stone at the UPJ with mild to moderate hydro- -N.p.o. -IVF -Pain control and antiemetics -Plan is for stent placement this afternoon by urology, discussed with Dr. Lee -Urine culture obtained, empiric ceftriaxone started Renal colic 07/26/2020 Ureteric stone 07/26/2020 Family History Medical History Relation Comments Cancer Father Prostate cancer Heart disease Father Hypertension Father Diabetes Sister Relation Status Comments Father Mother Alive Sister Social History Tobacco Use Types Packs/Day Years Used Date Smoking Tobacco: Never Smokeless Tobacco: Never Tobacco Cessation:Counseling Given: Not Answered Alcohol Use Standard Drinks/Week Comments Yes 0 (1 standard drink = 0.6 oz pur e alcohol) occasional/ rare Comments Unknown Sex and Gender Information Value Date Recorded Sex Assigned at Not on file Legal Sex Female 5:18 PM EST Gender Identity Not on file Sexual Orientation Not on file Last Filed Vital Signs Vital Sign Reading Time Taken Comments Blood Pressure 132/68 08/20/2023 4:10 PM EST Pulse 85 08/20/2023 3:52 PM EST Temperature - - Respiratory Rate - - Oxygen Saturation 90% 07/31/2022 3:38 PM EST Inhaled Oxygen Concentration - - Weight 76.2 kg (168 lb) 08/20/2023 3:52 PM EST Height - - Body Mass Index - - Plan of Treatment Health Maintenance Due Date Last Done Comments Breast Cancer Screening 1960 Pneumococcal Vaccine: Pediat rics (0 to 5 Years) and At-Risk Patients (6 to 64 Years) (1 of 2 - PCV) 1967 Colorectal Cancer Screening: Annual FOBT 2010 Colorectal Cancer Screening: Colonoscopy 2010 Colorectal Cancer Screening: Sigmoidoscopy 2010 Diabetes: Hemoglobin A1C 10/19/2020 Diabetes: Ophthalmology Exam 10/19/2020 Diabetes: Pedal Pulse Checked 10/19/2020 Diabetes: Sensory Foot Exam 10/19/2020 Diabetes: Visual Foot Exam 10/19/2020 Influenza Vaccine (#1) 2024 Hepatitis B Vaccine Aged Out No longe r eligible based on patient's age to complete this topic Insurance [facility] Care Teams Kiln Tester Relationship Specialty Start Date End Date Camilla Saenz MD [address] [place] [phone] PCP - General Internal Medicine 12/14/20
== END 2024-10-06 08:42 | disposition home or self-care (01) ==
LOC: HO.MAMMO 08:41
PROVIDERS: PCP Internal Medicine; Visit Provider Internal Medicine
DX: Z12.31 Encounter for screening mammogram for malignant neoplasm of breast (principal)
CPT/HCPCS: 77063; 77067

== ENCOUNTER → 2024-10-06 08:45 | Outpatient (BNV) | payer OTHER, SELFPAY | PROVIDERS: PCP Internal Medicine; Visit Provider Internal Medicine | DX: Z12.31 Encounter for screening mammogram for malignant neoplasm of breast (principal) | CPT/HCPCS: 77063; 77067 ==

== ENCOUNTER 2024-11-11 07:49 | Outpatient (REF) | payer OTHER, SELFPAY ==
--- OUTSIDE RECORDS SUMMARY | 2024-11-11 07:51 | XMS_ITS | Clinical Summary ---
Author Organization [facility] Address [address] [place] [phone] Phone Care Team Providers Care Recreation Worker Name Role Phone Camilla Saenz MD Primary Care Provider [phone]- [phone] Allergies Active Allergy Reactions Criticality Noted Date [...] Comments Breast Cancer Screening 1960 Pneumococcal Vaccine: 50+ Ye ars (1 of 2 - PCV) 1980 Colorectal Cancer Screening: Annual FOBT 2010 Colorectal Cancer Screening: Colonoscopy 2010 Colorectal Cancer Screening: Sigmoidoscopy 2010 Diabetes: Hemoglobin A1C 10/19/2020 Diabetes: Ophthalmology Exam 10/19/2020 Diabetes: Pedal Pulse Checked 10/19/2020 Diabetes: Sensory Foot Exam 10/19/2020 Diabetes: Visual Foot Exam 10/19/2020 Influenza Vaccine (Season Ended) 2025 Hepatitis B Vaccine Aged Out No longe r eligible based on patient's age to complete this topic Insurance [facility] Care Teams Recreation Worker Relationship Specialty Start Date End Date Camilla Saenz MD [facility] [place] [address] PCP - General Internal Medicine 12/14/20
[2024-11-11 10:29] LABS: Estimated Average Glucose 163 mg/dL; Hemoglobin A1C 186.3007 umol/L; Hemoglobin A1c % 7.3 % (<6.0); Total Hemoglobin (HGBA1C) 3313.5361 umol/L
[2024-11-11 10:56] LABS: Alanine Aminotransferase 9 U/L (0-31); Anion Gap 12 (12-20); Aspartate Amino Transferase 17 U/L (5-31); Blood Urea Nitrogen 28 mg/dL (9-16); Calcium 9.7 mg/dL (8.4-10.2); Carbon Dioxide 24 mmol/L (22-29); Chloride 109 mmol/L (96-108); Cholesterol 144 mg/dL (<200); Estimated Glomerular Filt Rate 55; Glucose Fasting 163 mg/dL (60-99); HDL Cholesterol 57 mg/dL (>40); LDL Cholesterol Calculated 59 mg/dL (<100); Potassium 4.1 mmol/L (3.3-5.1); Sodium 141 mmol/L (135-145); Triglycerides 140 mg/dL (<150)
[2024-11-11 11:21] LABS: Microalbum/Creatinine Ratio Ur 57.7 ug/mg cr (<30)
== END 2024-11-11 07:50 | disposition home or self-care (01) ==
LOC: HO.HMGCLDS 07:49
PROVIDERS: PCP Internal Medicine; Visit Provider Internal Medicine
DX: E11.29 Type 2 diabetes mellitus with other diabetic kidney complication (principal); E78.2 Mixed hyperlipidemia; E89.40 Asymptomatic postprocedural ovarian failure; R80.9 Proteinuria, unspecified; I10 Essential (primary) hypertension
CPT/HCPCS: 36415; 80048; 80061; 82043; 82306; 82570; 83036; 84450; 84460

== ENCOUNTER 2024-11-12 13:53 | Outpatient (AMB) | payer OTHER, SELFPAY ==
--- NOTE | 2024-11-12 14:37 | A.OFFPC_ITS ---
Vital Signs 11/12/24 14:51 Height 5 ft 4 in Weight 159 lb BMI 27.3 BP 122/70 Blood Pressure Location Rt brachial Position Sitting Respiration 15 Pulse 83 Pulse Source Pulse Oximeter Temp 98.1 F Temp Source Oral Pulse Oximetry (%) 97 Oxygen Delivery Method Room Air Intake Visit Reasons: Annual PE Intake Note: Pt is here today for her PE: Last mammogram 10/06/24, papsmear 06/17/19, colonoscopy 07/11/17 Allergies Sulfa (Sulfonamide Antibiotics) [SULFA (SULFONAMIDE ANTIBIOTICS)] Allergy (Intermediate, Verified 11/12/24 15:01) HIVES Medication List - Last Reconciled 11/12/24 by Oumou Saenz MD amlodipine 5 mg PO DAILY blood sugar diagnostic (FreeStyle Lite Strips) test blood sugar once a day blood-glucose meter (FreeStyle Lite Meter kit) As directed dulaglutide (Trulicity) 0.75 mg (0.5 mL) subcut QWEEK empagliflozin (Jardiance) 25 mg PO QAM lancets (FreeStyle Lancets) Test blood sugar once a day losartan 100 mg PO DAILY magnesium oxide 500 mg PO DAILY metformin 1,000 mg PO BID 3 months metoprolol succinate ER 50 mg PO QPM rosuvastatin 10 mg PO Q2D 90 days Tobacco use date assessed: 11/12/24 Dental Screening Dental Screen Date: 11/12/24 Did you have a dental visit in the last 12 months?: Yes Did you have a dental problem in the last 6 months where you did not have access to dental care?: No Was dental information given to patient?: Patient has dentist HPI Annual PE HPI Details 64 year-old lady with hypertension, diab etes mellitus, and dyslipidemia, here today for her physical exam. She is up-to-date with her screening mammogram and bone density scan, latter showing normal findings in 2022 She is also up-to-date with her screening for cervical cancer, goes to Dr. Johnson, with last Pap smear done 02/12/2023 with negative findings.. She has been compliant with taking medication, her last colonoscopy was done in by Dr. Chicas in 2016 with negative findings, repeat colonoscopy due again in 2026. Hypertension stable controlled on present treatment with losartan 100 mg taken once a day and metoprolol succinate 50 mg at night together with amlodipine 5 mg daily. Latest fasting labs showed hemoglobin A1c is higher than last check now at 7.3% with positive microalbuminuria, and normal lipids. [facility] Medical History (Updated 11/12/24 @ 15:26 by Oumou Saenz MD) Irritable bowel syndrome with diarrhea Hypomagnesemia Surgical menopause Ureteral calculus, left Mixed dyslipidemia Diabetes mellitus with microalbuminuria, without long-term current use of insulin History of uterine cancer Diabetes mellitus with kidney complication Essential hypertension Swine flu Hearing impaired Surgical History Status post laser lithotripsy of ureteral calculus History of total abdominal hysterectomy and bilateral salpingo-oophorectomy History of section Hx of cholecystectomy Family History Father Cancer of prostate Mother No problems noted. Sister Mental health disorder Social History Housing: House Alcohol intake: former Patient Tobacco Use Status: Never used Tobacco e-Cigarette/Vaping Use: Never Used Second Hand Smoke Exposure: No service: No Current occupational status: employed Cognitive needs: No Hearing needs: No Vision needs: Yes Questionnaire PHQ-9 Over the last 2 weeks, how often have you been bothered by any of the following problems? 1. Little interest or pleasure in doing things: not at all 2. Feeling down, depressed, or hopeless: not at all 3. Trouble falling or staying asleep, or sleeping too much: not at all 4. Feeling tired or having little energy: not at all 5. Poor appetite or overeating: not at all 6. Feeling bad about yourself - or that you are a failure or have let yourself or your family down: not at all 7. Trouble concentrating on things, such as reading the newspaper or watching television: not at all 8. Moving or speaking so slowly that other people could have noticed. Or the opposite - being so fidgety or restless that you have been moving around a lot more than usual: not at all 9. Thoughts that you would be better off or of hurting yourself in some way: not at all Total score: 0 Depression Screening Interpretation: Negative Depression Screening Done: Yes 65792 - PHQ-9 Billing: Yes Source: Developed by Drs. Abran Dumont, Geri Matson, Sid Pond and colleagues, with an educational nohemi from [employer]. Thrive Questionnaire Date Thrive assessed: 11/12/24 I am a: Patient What is your living situation today?: I have a steady place to live Within the past 12 months, did the food you bought not last and you didn't have the money to get more?: Never true Within the past 12 months, did you worry whether your food would run out before you got money to buy more?: Never true Do you have trouble paying for medicines?: No Do you have trouble getting transportation to medical appointments?: No Do you have trouble paying your heating and electricity bill?: No Do you have trouble taking care of your child, family member or friend?: No Do you have trouble with day-to-day activities such as bathing, preparing meals, shopping, managing finances, etc.?: No Are you currently unemployed and looking for a job?: No Are you interested in more education?: No Please select the resources that you would like help with: None Currently or been in a relationship where the following occur: No concerns reported THRIVE Score: 0 AUDIT C Alcohol Use Questionnaire (AUDIT-C) 1. How often do you have a drink containing alcohol?: Monthly or less 2. How many drinks containing alcohol do you have on a typical day when you are drinking?: 1 or 2 3. How often do you have six or more drinks on one occasion?: Never Total Score: 1 WILFREDO-7 AMB Questionnaire WILFREDO-7 Date WILFREDO - 7 assessed: 11/12/24 Feeling nervous, anxious, or on edge: 0 = Not at all Not being able to stop or control worryin = Not at all Worrying too much about different things: 0 = Not at all Trouble relaxin = Not at all Being so restless that it is hard to sit still: 0 = Not at all Becoming easily annoyed or irritable: 0 = Not at all Feeling afraid as if something awful might happen: 0 = Not at all Total WILFREDO-7 score (0-4 normal; 5-9 mild; 10-14 moderate; 15-21 severe): 0 Source: Developed by Drs. Abran Dumont, Geri Matson, Sid Pond and colleagues, with an educational nohemi from [employer]. WILFREDO-7 Assessment Billing WILFREDO-7 Assessment Tool: WILFREDO-7 Assessment 37921 Review of Systems Const Denies body aches, Denies fatigue, Denies fever(s), Denies headache(s) and Denies weakness Eyes Details: She sees Dr. Flynn for her yearly diabetes retinopathy screening Denies change in vision ENT Denies dizziness, Denies headache(s), Denies nasal congestion and Denies nasal discharge Card Denies chest pain, Denies lightheadedness, Denies palpitations and Denies dyspnea Resp Denies chest congestion, Denies cough and Denies dyspnea GI Denies abdominal pain, Denies melena, Denies change in bowel habits, Denies GI cramping and Denies dyspepsia Denies hematuria and Denies dysuria Musc Reports no additional complaints Skin/Breast Denies lesions and Denies rash Neuro Denies dizziness, Denies headache(s), Denies focal weakness, Denies Sensory deficit (Neuro) and Denies weakness Psych Reports no additional complaints Endo Denies fatigue, Denies polydipsia and Denies palpitations Stu/Lymph Reports no additional complaints Aller/Immun Reports no additional complaints Physical exam (Primary Care) Vital Signs: Last Vital Signs Temp 98.1 F 11/12/24 14:51 Pulse 83 11/12/24 14:51 Resp 15 11/12/24 14:51 BP 122/70 11/12/24 14:51 Pulse Ox 97 11/12/24 14:51 Oxygen Delivery Method Room Air 11/12/24 14:51 BMI result Body Mass Index 27.3 Tobacco/Smoking Status: Tobacco use Status Tobacco use date assessed 11/12/24 11/12/24 14:45 Patient Tobacco Use Status Never used Tobacco 11/12/24 14:45 e-Cigarette/Vaping Use Never Used 11/12/24 14:45 PHQ-9: PHQ-9 Score PHQ-9: Total score 0 11/12/24 15:03 Depression Screening Interpretation: Negative Thrive Assessment: Date of Thrive Assessment Date Thrive assessed 11/12/24 11/12/24 14:55 Currently or been in a relationship where the following occur: No concerns reported Advance Care Planning discussion: Completed/Scanned Date of discussion: 11/12/24 Who was present: Patient Forms completed: Health Care Proxy Time spent: 16-45 minutes Actual minutes spent: 3 Const General: comfortable and no acute distress Orientation/consciousness: patient oriented x3 HENMT Ears: external ears normal General nose exam: Normal external nose present Mouth: Normal oral and palatal mucosa present, tongue normal, oropharynx normal and moist mucous membranes Eyes General: appearance normal, both eyes and all related structures Neck Neck: Yes full ROM, Yes no lymphadenopathy and Yes supple Chest Breast/axilla palpation: normal palpation of the breasts Resp Effort & Inspection: normal respiratory effort and able to speak in complete sentences Auscultation: clear to auscultation bilaterally Cardio Rate: regular rate Rhythm: regular rhythm Heart sounds: S1 normal heart sound present and S2 normal heart sound present GI Inspection: Yes normal to inspection Palpation (GI): Soft to palpation, nontender and no masses General: Yes no CVA tenderness and Yes deferred (Followed by her OBGYN Dr. Ele woodward) Back/Spine/Pelvis Back: no CVA tenderness and No back tenderness Skin General skin exam: no rashes or lesions noted Neuro General: patient oriented x3, gait normal, tone normal, moves all extremities, Normal light touch and pain sensation and no focal motor deficits Cognition (Neuro): normal cognition Gait exam (Neuro): Normal gait present Motor exam (neuro): 5/5 motor strength present throughout Sensory Exam: No Sensory deficit (Neuro) Extrem General: Yes full ROM, Yes no joint enlargement, Yes no pedal edema, Yes no calf tenderness and Yes normal gait Psych Appearance: grossly normal Mental Status: mental status grossly normal Speech and movement: Normal speech and movement present Affect: normal affect Attitude: cooperative Thought process: Normal thought process present Results Reviewed Results Reviewed: Name: Shanda Yancey Age/Sex: 64/F : 1960 Unit#: [id number] Attend Dr: Oumou Saenz MD Re11/11/24 Status: DEP [facility]: SPEC : [id number] RHONDA: 11/11/24 STATUS: COMP REQ : [id number] RECD: 11/11/24-[address]: Oumou Saenz MD COMP: 11/11/24-1114 ENTERED: 11/11/24-[address] [facility] [address]: ORDERED: Met Prof Fast, AST, ALT, Lipid Panel, Vitamin D 25-OH Test Result Flag Reference Sodium 141 135-145 mmol/L Potassium 4.1 3.3-5.1 mmol/L CL 109 H 96-108 mmol/L CO2 24 22-29 mmol/L Gap 12 12-20 BUN 28 H 9-16 mg/dL Creat 1.01 0.5-1.4 mg/dL eGFR 55 Chronic Kidney Disease: Estimated GFR < 60 mL/min/1.73m2 Severe Kidney Disease: Estimated GFR < 15 mL/min/1.73m2 FBS 163 H 60-99 mg/dL A fasting glucose of 126 mg/dl or greater on more than one occasion is considered diagnostic of diabetes. CA 9.7 8.4-10.2 mg/dL AST (GOT) 17 5-31 U/L ALT (GPT) 9 0-31 U/L Triglyceride 140 <150 mg/dL Desirable Triglyceride: less than 150 mg/dL Borderline High Triglyceride 150-199 mg/dL High Triglyceride: 200-499 mg/dL Very High Triglyceride: greater than or equal to 5OO mg/dL Cholesterol 144 <200 mg/dL Desirable Cholesterol: less than 200 mg/dL Borderline High Cholesterol: 200-239 mg/dL High Cholesterol: greater than 239 mg/dL LDL Calculated 59 <100 mg/dL Desirable LDL: less than 100 mg/dL Near Optimal/Above Optimal LDL: 110-129 mg/dL Borderline High LDL: 130-159 mg/dL High LDL: 160-189 mg/dL Very High LDL: greater than or equal to 190 mg/dL HDL 57 >40 mg/dL Desirable HDL: greater than 40 mg/dL Note: This HDL assay may give artificially low results in patients with liver disease. Vitamin D 25-OH 54.0 >30 ng/mL Health Based Reference Values* < 20 ng/mL Deficient 20-30 ng/mL Insufficient > 30 ng/mL Sufficient Laboratory Tests 04/27/24 11/11/24 11/11/24 07:18 08:00 08:05 Estimat Average Glucose 151 163 Hemoglobin A1c % 6.9 H 7.3 H Urine Creatinine 102.20 Urine Microalbumin 59.0 Microalb/Creat Ratio 57.7 H Coding Level of Care Code Est Pt Prev Care 40-64y(35561) Diagnoses Annual visit for general adult medical examination with abnormal findings Z00.01 Mixed dyslipidemia E78.2 Diabetes mellitus with microalbuminuria, without long-term current use of insulin E11.29; R80.9 Essential hypertension I10 Irritable bowel syndrome with diarrhea K58.0 Advanced directives, counseling/discussion Z71.89 Additional Codes PHQ-9 - 59613 - PHQ-9 Billing: Yes ([id number]) WILFREDO-7 Assessment Billing - WILFREDO-7 Assessment Tool: WILFREDO-7 Assessment 40510 ([id number]) Vital Signs *Quality* - Advance Care Planning discussion: Completed/Scanned ([id number]) Vital Signs *Quality* - Time spent: 16-45 minutes ([id number]) Assessment & Plan Assessment & Plan (1) Annual visit for general adult medical examination with abnormal findings: Code(s): Z00.01 - Encounter for general adult medical examination with abnormal findings Plan: Discuss recent fasting lab results with patient. Continue with regular dental visit every 6 months and annual eye exams, sees Dr. Flynn Take adequate calcium in diet and vitamin-D 3 at 2000 IU per cap once a day, in addition to weight-bearing exercises to help maintain good muscle tone and weight control. Instructed to do self-breast exam, and continue to get yearly mammogram. Up-to-date with her bone density scan. Screening colonoscopy due again in 2026, sees Dr. Johnson for her routine Pap and pelvic exam which is currently up-to-date. Up-to-date with all her vaccinations. (2) Mixed dyslipidemia: Code(s): E78.2 - Mixed hyperlipidemia Category: Medical Plan: Lipids are within normal limits, continue rosuvastatin 10 mg every other day (3) Diabetes mellitus with microalbuminuria, without long-term current use of insulin: Code(s): E11.29 - Type 2 diabetes mellitus with other diabetic kidney complication; R80.9 - Proteinuria, unspecified Category: Medical Plan: Slipping control of diabetes with latest hemoglobin A1c at 7.3%. Will continue on metformin and Jardiance at the same dose, but Trulicity dose increased to 1.5 mg injected subcutaneously once a week. Being forced importance of following recommended diet and getting regular exercise. Continue with diabetes retinopathy screening yearly, currently up-to-date.. Will see her for a telehealth visit in 4 weeks up-to-date dosage adjustment in Trulicity. (4) Essential hypertension: Code(s): I10 - Essential (primary) hypertension Category: Medical Plan: Blood pressure at goal of less than 130/80. Continue with current medication. Reinforced importance of following a low sodium diet, getting regular exercise, and lowering stress levels. (5) Irritable bowel syndrome with diarrhea: Code(s): K58.0 - Irritable bowel syndrome with diarrhea Category: Medical Plan: Follow-up FODMAP diet (6) Advanced directives, counseling/discussion: Code(s): Z71.89 - Other specified counseling Plan: Initiated the conversation about Advanced Directives. Advanced Directives help patients prepare for current and future decisions about their medical treatment and place of care. Discussed with patient that it is a process where a patients current condition and prognosis are reviewed, their wishes for information regarding their illness are elicited, and likely medical dilemmas are presented and options discussed. Healthcare proxy form completed today. The form can be amended as needed, reviewed yearly and make changes as needed Medications: Changed From dulaglutide (Trulicity) 0.75 mg (0.5 mL) subcut QWEEK 2 mL 4RF E11.29 - Type 2 diabetes mellitus with other diabetic kidney complication, R80.9 - Proteinuria, unspecified To Trulicity (dulaglutide) 1.5 mg (0.5 mL) subcut QWEEK 2 mL 4RF NS E11.29 - Type 2 diabetes mellitus with other diabetic kidney complication, R80.9 - Proteinuria, unspecified Refilled rosuvastatin 10 mg PO Q2D 90 days 45 tabs 3RF
[2024-11-12 14:51] VITALS: BP 122/70; PULSE 83; RESP 15; TEMP 36.7; O2SAT 97; BMI 27.3
--- OUTSIDE RECORDS SUMMARY | 2024-11-12 16:59 | XMS_ITS | Clinical Summary ---
Author Organization [facility] Address [address] [place] [phone] Phone Care Team Providers Care Geotechnical Field Technician Name Role Phone Camilla Saenz MD Primary Care Provider [phone]- [phone] Allergies Active Allergy Reactions Criticality Noted Date [...] [facility] Care Teams Geotechnical Field Technician Relationship Specialty Start Date End Date Camilla Saenz MD [facility] [address] PCP - General Internal Medicine 12/14/20
== END 2024-11-12 15:35 | disposition home or self-care (01) ==
LOC: HO.HMCC 13:54
PROVIDERS: PCP Internal Medicine; Visit Provider Internal Medicine
DX: Z00.01 Encounter for general adult medical examination with abnormal findings (principal); E78.2 Mixed hyperlipidemia; E11.29 Type 2 diabetes mellitus with other diabetic kidney complication; R80.9 Proteinuria, unspecified; I10 Essential (primary) hypertension; K58.0 Irritable bowel syndrome with diarrhea; Z71.89 Other specified counseling

== ENCOUNTER → 2024-11-12 13:53 | Outpatient (BNVA) | payer OTHER, SELFPAY | PROVIDERS: PCP Internal Medicine; Visit Provider Internal Medicine | DX: Z00.01 Encounter for general adult medical examination with abnormal findings (principal); E78.2 Mixed hyperlipidemia; E11.29 Type 2 diabetes mellitus with other diabetic kidney complication; I10 Essential (primary) hypertension; K58.0 Irritable bowel syndrome with diarrhea; Z79.84 Long term (current) use of oral hypoglycemic drugs; Z79.85 Long-term (current) use of injectable non-insulin antidiabetic drugs; Z79.899 Other long term (current) drug therapy; Z71.89 Other specified counseling | CPT/HCPCS: 96127 ==

== ENCOUNTER 2024-12-14 10:01 | Outpatient (REF) | payer SELFPAY ==
--- OUTSIDE RECORDS SUMMARY | 2024-12-14 10:27 | XMS_ITS | Clinical Summary ---
Author Organization [facility] Address [address] [place] [phone] Phone Care Team Providers Care Buffing Wheel Presser Name Role Phone Camilla Saenz MD Primary Care Provider [phone]- [phone] Allergies Active Allergy Reactions Criticality Noted Date [...] patient's age to complete this topic Insurance [facility] Care Teams Buffing Wheel Presser Relationship Specialty Start Date End Date Camilla Saenz MD [facility] [place] [address] PCP - General Internal Medicine 12/14/20
== END 2024-12-14 10:02 | disposition home or self-care (01) ==
LOC: HO.SH 10:01
PROVIDERS: Visit Provider Internal Medicine
DX: Z01.118 Encounter for examination of ears and hearing with other abnormal findings (principal); H90.3 Sensorineural hearing loss, bilateral
CPT/HCPCS: V5267

== ENCOUNTER 2024-12-18 09:02 | Outpatient (AMB) | payer SELFPAY ==
--- NOTE | 2024-12-18 09:00 | A.OFFPC_ITS ---
Intake Visit Reasons: 4 weeks f/up-telehealth Intake Note: Pt is having a telehealth visit to discuss blood sugars Allergies Sulfa (Sulfonamide Antibiotics) [SULFA (SULFONAMIDE ANTIBIOTICS)] Allergy (Intermediate, Verified 12/18/24 09:16) HIVES Medication List - Last Reconciled 12/18/24 by Oumou Saenz MD amlodipine 5 mg PO DAILY blood sugar diagnostic (FreeStyle Lite Strips) test blood sugar once a day blood-glucose meter (FreeStyle Lite Meter kit) As directed empagliflozin (Jardiance) 25 mg PO QAM lancets (FreeStyle Lancets) Test blood sugar once a day losartan 100 mg PO DAILY magnesium oxide 500 mg PO DAILY metformin 1,000 mg PO BID 3 months metoprolol succinate ER 50 mg PO QPM rosuvastatin 10 mg PO Q2D 90 days Trulicity (dulaglutide) 1.5 mg (0.5 mL) subcut QWEEK NS Tobacco use date assessed: 12/18/24 Dental Screening Dental Screen Date: 12/18/24 Did you have a dental visit in the last 12 months?: Yes Did you have a dental problem in the last 6 months where you did not have access to dental care?: Yes Was dental information given to patient?: Patient has dentist HPI 4 weeks f/up-telehealth HPI Details - The patient is a 64-year-old female pr esenting with Type 2 Diabetes Mellitus. - She reports morning blood glucose leve ls typically between 143-153 mg/dL, and a high of 168 mg/dL, recorded initially after increasing her Trulicity dose. - She has not experienced any adverse ef fects from the higher dose of Trulicity. - One nighttime measurement was noted at 175 mg/dL. - The patient continues on Jardiance and Metformin alongside her adjusted Trulicity regimen. PENDING SALE TO [facility] Medical History Irritable bowel syndrome with diarrhea Hypomagnesemia Surgical menopause Ureteral calculus, left Mixed dyslipidemia Diabetes mellitus with microalbuminuria, without long-term current use of insulin History of uterine cancer Diabetes mellitus with kidney complication Essential hypertension Swine flu Hearing impaired Surgical History Status post laser lithotripsy of ureteral calculus History of total abdominal hysterectomy and bilateral salpingo-oophorectomy History of section Hx of cholecystectomy Family History Father Cancer of prostate Mother No problems noted. Sister Mental health disorder Social History Housing: House Alcohol intake: former Patient Tobacco Use Status: Never used Tobacco e-Cigarette/Vaping Use: Never Used Second Hand Smoke Exposure: No service: No Current occupational status: employed Cognitive needs: No Hearing needs: No Vision needs: Yes Questionnaire Thrive Questionnaire Date Thrive assessed: 11/12/24 WILFREDO-7 AMB Questionnaire WILFREDO-7 Date WILFREDO - 7 assessed: 11/12/24 Source: Developed by Drs. Abran Dumont, Geri Matson, Sid Pond and colleagues, with an educational nohemi from [employer] Review of Systems Const Denies body aches, Denies fatigue, Denies fever(s), Denies headache(s) and Denies weakness Eyes Details: She sees Dr. Flynn for her yearly diabetes retinopathy screening Denies change in vision ENT Denies dizziness, Denies headache(s), Denies nasal congestion and Denies nasal discharge Card Denies chest pain, Denies lightheadedness, Denies palpitations and Denies dyspnea Resp Denies chest congestion, Denies cough and Denies dyspnea GI Denies abdominal pain, Denies melena, Denies change in bowel habits, Denies GI cramping and Denies dyspepsia Denies hematuria and Denies dysuria Musc Reports no additional complaints Skin/Breast Denies lesions and Denies rash Neuro Denies dizziness, Denies headache(s), Denies focal weakness, Denies Sensory deficit (Neuro) and Denies weakness Psych Reports no additional complaints Endo Denies fatigue, Denies polydipsia and Denies palpitations Stu/Lymph Reports no additional complaints Aller/Immun Reports no additional complaints Physical exam (Primary Care) Tobacco/Smoking Status: Tobacco use Status Tobacco use date assessed 12/18/24 12/18/24 09:01 Patient Tobacco Use Status Never used Tobacco 12/18/24 09:01 e-Cigarette/Vaping Use Never Used 12/18/24 09:01 Thrive Assessment: Date of Thrive Assessment Date Thrive assessed 11/12/24 12/18/24 09:01 Neuro Sensory Exam: No Sensory deficit (Neuro) Telehealth Telehealth Telehealth Platform: spigit Location of provider rendering services: practice address Location of patient: address on file Patient Identification confirmed using: Name, : Yes Telehealth method: video Patient verbally consented to treatment: Yes Patient verbally consented to billing insurance company: Yes Patient informed of any privacy concerns related to visit: Yes Minutes spent on Phone/Video with Pt.: 15 Coding Level of Care Code Tele Est Pt Level 3 (58429) Diagnoses Diabetes mellitus with microalbuminuria, without long-term current use of insulin E11.29; R80.9 Assessment & Plan Assessment & Plan (1) Diabetes mellitus with microalbuminuria, without long-term current use of insulin: Code(s): E11.29 - 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 Blood glucose monitoring will continue with the patient reporting stable levels and no experienced side effects. Provided that current medication seems effective and well-tolerated, follow-up is scheduled for May to reassess the management plan. The patient is equipped with adequate medication supply and instructions for managing her refills. Reminded to get her fasting labs done prior to next appointment. Patient was informed and verbally consented to the use of an ambient scribe for clinic note documentation during this visit.
--- OUTSIDE RECORDS SUMMARY | 2024-12-18 09:19 | XMS_ITS | Clinical Summary ---
Author Organization [facility] Address [address] [place] [phone] Phone Care Team Providers Care Senior Web Engineer Name Role Phone Camilla Saenz MD Primary Care Provider [phone]- [phone] Allergies Active Allergy Reactions Criticality Noted Date [...] patient's age to complete this topic Insurance [facility] Care Teams Senior Web Engineer Relationship Specialty Start Date End Date Camilla Saenz MD [facility] [place] [address] PCP - General Internal Medicine 12/14/20
== END 2024-12-18 09:31 | disposition home or self-care (01) ==
LOC: HO.HMCC 09:02
PROVIDERS: PCP Internal Medicine; Visit Provider Internal Medicine
DX: E11.29 Type 2 diabetes mellitus with other diabetic kidney complication (principal); R80.9 Proteinuria, unspecified

== ENCOUNTER → 2024-12-18 09:02 | Outpatient (BNVA) | payer OTHER, SELFPAY | PROVIDERS: PCP Internal Medicine; Visit Provider Internal Medicine ==

== ENCOUNTER 2025-06-16 07:11 | Outpatient (REF) | payer OTHER, SELFPAY ==
[2025-06-16 11:14] LABS: Alanine Aminotransferase 11 U/L (0-31); Anion Gap 10 (12-20); Aspartate Amino Transferase 20 U/L (5-31); Blood Urea Nitrogen 28 mg/dL (9-16); Calcium 10.0 mg/dL (8.4-10.2); Carbon Dioxide 27 mmol/L (22-29); Chloride 108 mmol/L (96-108); Cholesterol 147 mg/dL (<200); Estimated Glomerular Filt Rate 53; HDL Cholesterol 59 mg/dL (>40); Potassium 4.4 mmol/L (3.3-5.1); Sodium 141 mmol/L (135-145); Triglycerides 129 mg/dL (<150)
[2025-06-16 11:26] LABS: Microalbum/Creatinine Ratio Ur 96.6 ug/mg cr (<30)
--- OUTSIDE RECORDS SUMMARY | 2025-06-16 15:01 | XMS_ITS | Clinical Summary ---
Author Organization [facility] Address [address] [place] [id number] Phone Care Team Providers Care Manager Materials Management Name Role Phone Camilla Saenz MD Primary Care Provider [phone]- [phone] Allergies Active Allergy Reactions Criticality Noted Date [...] Visual Foot Exam 10/19/2020 Influenza Vaccine (#1) 2025 Hepatitis B Vaccine Aged Out No longe r eligible based on patient's age to complete this topic Insurance [facility] Care Teams Manager Materials Management Relationship Specialty Start Date End Date Camilla Saenz MD PCP - General Internal Medicine 12/14/20
--- OUTSIDE RECORDS SUMMARY | 2025-06-16 15:01 | XMS_ITS | Encounter Summary ---
Author Organization [facility] Address [facility] [address] [address] Phone Care Team Providers Care Drop Wire Hanger Name Role Phone Oumou Saenz MD Primary Care Provider Encounter Details Date Type Department Care Team (Late st Contact Info) Description 07/26/2020 Procedure Pass OR Admitting Dept - Virtual Department [address] [place] [address] Social History Tobacco Use Types Packs/Day Years Used Date Smoking Tobacco: Never Smokeless Tobacco: Never Alcohol Use Standard Drinks/Week Comments Yes 0 (1 standard drink = 0.6 oz pur e alcohol) Comments Unknown Sex and Gender Information Value Date Recorded Sex Assigned at Female 07/26/2020 7:21 AM EST Legal Sex Female 7:08 AM EST Gender Identity Female 07/26/2020 7:21 AM EST Sexual Orientation Not on file documented as of this encounter Functional Status * Calculated C-SSRS Risk Score (Lifetime/Recent) Answer Date of Assessment Author No Risk Indicated 07/26/2020 7:25 PM Luna Adrian RN * [place] Suicide Severity Rating Scale (Screener/Recent Self-Report) Question Answer Date of Assessment Author 1. Wish to be (Past 1 Month) No 07/26/2020 7:25 PM Luna Adrian RN 2. Non-Specific Active Suici dayna Thoughts (Past 1 Month) No 07/26/2020 7:25 PM Manuelito Adrian RN 6. Suicidal Behavior (Lifetime) No 0 7:25 PM EST Luna Barbour RN documented as of this encounter Plan of Treatment Not on file documented as of this encounter Visit Diagnoses Not on filedocumented in this encounter Additional Health Concerns Infection Onset Date Last Indicated Resolved Time CoV-Exposed Comment:Recent close contact 07/26/2020 07/31/2020 08/09/2020 1:25 AM EST documented as of this encounter Care Teams Drop Wire Hanger Relationship Specialty Start Date End Date Oumou Saenz MD [address] [facility] [place] [address] PCP - General Internal Medicine 07/26/20 documented as of this encounter Additional Source Comments The information contained in this document represents components of the legal health record. It is not the complete legal health record.[facility]
--- OUTSIDE RECORDS SUMMARY | 2025-06-16 15:01 | XMS_ITS | Clinical Summary ---
Author Organization [facility] Address [address] [place] [id number] Phone Care Team Providers Care Conservation Or Heritage Architect Name Role Phone Oumou Saenz MD Primary Care Provider Allergies Active Allergy Reactions Criticality Noted Date Comments Sulfa (Sulfonamide Antibiotics) 06/29 Medications metFORMIN (GLUCOPHAGE) 1000 MG tablet Take 1,000 mg by mouth 2 (two) times a day with meals. Active SITagliptin (JANUVIA) 100 MG tablet Take 100 mg by mouth daily. Active rosuvastatin (CRESTOR) 5 MG tablet Take 5 mg by mouth every other day. Active losartan (COZAAR) 50 MG tablet Take 50 mg by mouth daily. Active metoprolol succinate (TOPROL-XL) 25 MG 24 hr tablet Take 25 mg by mouth daily. Active glyBURIDE (DIABETA) 5 MG tablet Take 10 mg by mouth 2 (two) times a day with meals. Active cephalexin (KEFLEX) 250 MG capsule Take 500 mg by mouth 2 (two) times a day. For 10 days, to finish Saturday Active acetaminophen (TYLENOL) 325 mg tablet Take 2 tablets (650 mg total) by mouth every 6 (six) hours as needed for mild pain or fever. 0 07/27/2020 Active Active Problems Problem Noted Date Diagnosed Date Nephropathy, obstructive 07/26/2020 Assessment & Plan (07/26/2020 1:17 PM EST): CT scan showed a 6 mm left obstructing stone at the UPJ with mild to moderate hydro- -N.p.o. -IVF -Pain control and antiemetics -Plan is for stent placement this afternoon by urology, discussed with Dr. Lee -Urine culture obtained, empiric ceftriaxone started Left ureteral stone 07/26/2020 Hydronephrosis of left kidney 07/26/2020 Renal colic on left side 07/26/2020 Hypertensive disorder Assessment & Plan (07/26/2020 1:14 PM EST): Continue outpatient medical regimen Diabetes mellitus Assessment & Plan (07/26/2020 1:15 PM EST): Patient is on three oral antihyperglycemic agents as well as a weekly subcu agent which will be held -I have placed her on Lantus, small dose of 5 units nightly as well as 4 units of Humalog with meals and sliding scale Family History Medical History Relation Comments Heart disease Father No Known Problems Mother Relation Status Comments Father Mother Alive Social History Tobacco Use Types Packs/Day Years Used Date Smoking Tobacco: Never Smokeless Tobacco: Never Alcohol Use Standard Drinks/Week Comments Yes 0 (1 standard drink = 0.6 oz pur e alcohol) Education Answer Date Recorded Are you interested in more education? Not on vish e 11/23/2022 Are you concerned about learning? Not on file 11/23/2022 No 11/23/2022 No 11/23/2022 Digital Access Answer Date Recorded No 12/25/2022 No 12/25/2022 Reliable internet access at home? Not on file 12/25/2022 Device with a working camera? Not on file Comments Unknown Sex and Gender Information Value Date Recorded Sex Assigned at Female 07/26/2020 7:21 AM EST Legal Sex Female 7:08 AM EST Gender Identity Female 07/26/2020 7:21 AM EST Sexual Orientation Not on file Last Filed Vital Signs Vital Sign Reading Time Taken Comments Blood Pressure 157/83 07/27/2020 11:22 AM EST Pulse 92 07/27/2020 11:22 AM EST Temperature 36.6 C (97.9 F) 07/27/2020 8:00 AM EST Respiratory Rate 16 07/27/2020 11:22 AM EST Oxygen Saturation 95% 07/27/2020 11:22 AM EST Inhaled Oxygen Concentration - - Weight 78 kg (172 lb) 07/26/2020 7:00 PM EST Height 162.6 cm (5' 4 ) 07/26/2020 7:00 PM EST Body Mass Index 29.52 07/26/2020 7:00 PM EST Plan of Treatment Health Maintenance Due Date Last Done Comments BLOOD PRESSURE 1961 HEMOGLOBIN A1C 1961 DEPRESSION SCREENING 1973 HEPATITIS C SCREENING 1979 HIV ONE-TIME SCREENING (18-65 YEARS) 1979 SMOKING STATUS SCREENING (Once After 26 Yrs) 1987 MAMMOGRAM 2001 COLOGUARD 2006 COLONOSCOPY 2006 COLORECTAL CANCER SCREENING 2006 FIT TEST 2006 FOBT 2006 SIGMOIDOSCOPY 2006 VIRTUAL COLONOSCOPY 2006 ZOSTER VACCINES (1 of 2) 2011 PNEUMOCOCCAL VACCINES (50+ years) (2 of 2 - PCV) 06/24/2018 06/24/2017 DIABETIC EYE EXAM 07/26/2020 CREATININE LEVEL 07/27/2021 07/27/2020, 07/26/2020 POTASSIUM LEVEL 07/27/2021 07/27/2020, 07/26/2020 INFLUENZA VACCINE (#1) 2025 , 04/22/2019, 04/25/2018, Additional history exists COVID-19 VACCINE (2 - 2024- season) 2025 05/07/2021 Adult Td,Tdap Booster 04/25/2026 04/25/2016 RSV VACCINE (1 - 1-dose 75+ series) 2036 HEPATITIS A VACCINES Aged Out No long er eligible based on patient's age to complete this topic HIB VACCINES Aged Out No longer eligi ble based on patient's age to complete this topic MENINGOCOCCAL VACCINES (ACWY) Aged Out No longer eligible based on patient's age to complete this topic MENINGOCOCCAL VACCINES (B) Aged Out N o longer eligible based on patient's age to complete this topic Medical Devices Implanted Type Area Windows Server Administrator Device Identifier Shelf Expiration Date Model / Serial / Lot Stent Ureteral 6fr 22 To 30cm Stretch Coated Rere - [id number] Implanted:Qty: 1 on 07/26/2020 by Sriram Lee MD at [facility] Left: Ureter [employer] 04/15/2023 [id number] / / [id number] Procedures Procedure Name Priority Date/Time Associated Diagnosis Comments BASIC METABOLIC PANEL (BMP) Routine 07/27/2020 5:45 AM EST from Last 3 Months or Most Recently Relevant to Health Maintenance Results * (ABNORMAL) Basic metabolic panel (07/27/2020 5:45 AM EST) SODIUM 144 133 - 146 mmol/L [facility] CHLORIDE 107 96 - 108 mmol/L [facility] POTASSIUM 3.6 3.3 - 5.1 mmol/L [facility] CO2 25 21 - 35 mmol/L [facility] BUN 17 6 - 19 mg/dL [facility] CREATININE 0.90 0.5 - 1.5 mg/dL [facility] GLUCOSE 191(H) 70 - 99 mg/dL [facility] CALCIUM 7.8(L) 8.4 - 10.3 mg/dL [facility] EGFR 70 >59 mL/min/1.7 3m2 [facility] Comment:Estimated glomerular filtration rate calculated using the CKD-EPI equation. ANION GAP 16 10 - 20 mmol/L [facility] Blood 07/27/2020 5:45 AM EST 07/27/2020 6:20 AM EST John Gallegos MD LAB BLOOD BKR ORDERABLES F inal Result [address] [address] from Last 3 Months or Most Recently Relevant to Health Maintenance Insurance O O O O O O O Member Subscriber Plan / Payer (Ef fective 2020-Present) Name:AlejandroruizShanda deutsch Relation to Subscriber:Self Name:Shanda Love Payer ID:Not on file Type:HMO Address: [place] [id number] O Advance Directives For more information, please contact: [phone] (9AM - 5PM [facility], Saturday-Saturday) Documents on File Type Date Recorded Patient [place] Conservationist Expl anation Healthcare Proxy 07/28/2020 10:12 AM * Full Code (Latest Code Status on File) Date Activated Date Inactivated Comments 07/26/2020 7:03 PM Question Answer Comments Code Status Confirmed With: Patient Care Teams Conservation Or Heritage Architect Relationship Specialty Start Date End Date Oumou Saenz MD [address] [facility] [place] [address] PCP - General Internal Medicine 07/26/20 Additional Source Comments The information contained in this document represents components of the legal health record. It is not the complete legal health record.[facility]
--- OUTSIDE RECORDS SUMMARY | 2025-06-16 15:02 | XMS_ITS | Encounter Summary ---
Author Organization [facility] Address [facility] [address] [place] [address] Phone Care Team Providers Care Laser Specialist Name Role Phone Oumou Saenz MD Primary Care Provider Encounter Details Date Type Department Care Team (Late st Contact Info) Description 07/26/2020 Procedure Pass [facility], Ct Scan - [address] [address] Social History Tobacco Use Types Packs/Day Years [...] 07/26/2020 7:25 PM Luna Adrian RN * [place] Suicide Severity Rating Scale (Screener/Recent Self-Report) Question Answer Date of Assessment Author 1. Wish to be (Past 1 Month) No 07/26/2020 7:25 PM Luna Adrian RN 2. Non-Specific Active Suici dayna Thoughts (Past 1 Month) No 07/26/2020 7:25 PM Manuelito Adrian ZIGGY 6. Suicidal Behavior (Lifetime) No 0 7:25 PM EST Luna Barbour RN documented as of this encounter Plan of Treatment Not on file documented as of this encounter Visit Diagnoses Not on filedocumented in this encounter Additional Health Concerns Infection Onset Date Last Indicated Resolved Time CoV-Exposed Comment:Recent close contact 07/26/2020 07/31/2020 08/09/2020 1:25 AM EST documented as of this encounter Care Teams Laser Specialist Relationship Specialty Start Date End Date Oumou Saenz MD [address] [facility] [place] [address] PCP - General Internal Medicine 07/26/20 documented as of this encounter Additional Source Comments The information contained in this document represents components of the legal health record. It is not the complete legal health record.[facility]
== END 2025-06-16 07:12 | disposition home or self-care (01) ==
LOC: HO.HMGCLDS 07:11
PROVIDERS: PCP Internal Medicine; Visit Provider Internal Medicine
DX: I10 Essential (primary) hypertension (principal); E78.2 Mixed hyperlipidemia; E11.29 Type 2 diabetes mellitus with other diabetic kidney complication; E89.40 Asymptomatic postprocedural ovarian failure; K21.9 Gastro-esophageal reflux disease without esophagitis; R80.9 Proteinuria, unspecified
CPT/HCPCS: 36415; 80048; 80061; 82043; 82570; 83036; 84450; 84460

== ENCOUNTER 2025-06-17 13:22 | Outpatient (AMB) | payer OTHER, SELFPAY ==
--- NOTE | 2025-06-17 13:25 | MHC.PC.OV ---
Vital Signs 06/17/25 13:34 Height 5 ft 4 in Weight 163 lb BMI 28.0 BP 136/60 Blood Pressure Location Rt brachial Position Sitting Respiration 16 Pulse 91 Pulse Source Pulse Oximeter Temp 98.6 F Temp Source Oral Pulse Oximetry (%) 97 Oxygen Delivery Method Room Air Intake Visit Reasons: 6 months f/up Intake Note: Pt is here today for her 6mo. f/u Allergies Sulfa (Sulfonamide Antibiotics) (SULFA (SULFONAMIDE ANTIBIOTICS)) Allergy (Intermediate, Verified 06/17/25 13:47) HIVES Medication List - Last Reconciled 06/17/25 by Oumou Saenz MD amlodipine 5 mg PO DAILY blood sugar diagnostic (FreeStyle Lite Strips) test blood sugar once a day blood-glucose meter (FreeStyle Lite Meter kit) As directed empagliflozin (Jardiance) 25 mg PO QAM lancets (FreeStyle Lancets) Test blood sugar once a day losartan 100 mg PO DAILY magnesium oxide 500 mg PO DAILY metformin 1,000 mg PO BID 3 months metoprolol succinate ER 50 mg PO QPM rosuvastatin 10 mg PO Q2D 90 days Trulicity (dulaglutide) 1.5 mg (0.5 mL) subcut QWEEK NS Tobacco use date assessed: 06/17/25 Dental Screening Dental Screen Date: 06/17/25 Did you have a dental visit in the last 12 months?: Yes Did you have a dental problem in the last 6 months where you did not have access to dental care?: No Was dental information given to patient?: Patient has dentist HPI 6 months f/up HPI Details The patient is a 64 year old individual presenting for follow-up and management of chronic conditions. The patient's A1c level has increased, and a recent blood sugar reading was 168. This elevation is attributed to recent life stressors and poor dietary choices during a recent cruise. The patient reports taking Trulicity without any side effects. The patient's blood pressure was recorded at 138/60 mmHg and cholesterol levels are normal. The patient has small cataracts that does not yet require intervention and reports no diabetes-related eye involvement. The patient has experienced significant life stressors since December, including buying and selling a house, moving, the of a best friend of 56 years, and a sister having a stroke. The patient currently lives with their daughter, son-in-law, and two grandchildren, ages 8 and 10. Regarding health maintenance, the patient is up to date with mammograms, with the next one due in July or September. The patient's last bone density scan was 2-3 years ago and was normal, with the next one due. A colonoscopy is not due until the following year. Immunizations are current for flu, shingles (two doses), and tetanus, with the next pneumonia vaccine scheduled for age 65. The patient has received four COVID-19 vaccine shots but has not had the most recent booster or the RSV vaccine. [facility] Medical History Irritable bowel syndrome with diarrhea Hypomagnesemia Surgical menopause Ureteral calculus, left Mixed dyslipidemia Diabetes mellitus with microalbuminuria, without long-term current use of insulin History of uterine cancer Diabetes mellitus with kidney complication Essential hypertension Swine flu Hearing impaired Surgical History Status post laser lithotripsy of ureteral calculus History of total abdominal hysterectomy and bilateral salpingo-oophorectomy History of section Hx of cholecystectomy Family History Father Cancer of prostate Mother No problems noted. Sister Mental health disorder Social History Housing: House Alcohol intake: former Patient Tobacco Use Status: Never used Tobacco e-Cigarette/Vaping Use: Never Used Second Hand Smoke Exposure: No service: No Current occupational status: employed Cognitive needs: No Hearing needs: No Vision needs: Yes Questionnaire PHQ-9 Over the last 2 weeks, how often have you been bothered by any of the following problems? 1. Little interest or pleasure in doing things: not at all 2. Feeling down, depressed, or hopeless: not at all 3. Trouble falling or staying asleep, or sleeping too much: not at all 4. Feeling tired or having little energy: not at all 5. Poor appetite or overeating: not at all 6. Feeling bad about yourself - or that you are a failure or have let yourself or your family down: not at all 7. Trouble concentrating on things, such as reading the newspaper or watching television: not at all 8. Moving or speaking so slowly that other people could have noticed. Or the opposite - being so fidgety or restless that you have been moving around a lot more than usual: not at all 9. Thoughts that you would be better off or of hurting yourself in some way: not at all Total score: 0 Depression Screening Interpretation: Negative Depression Screening Done: Yes Source: Developed by Drs. Abran Dumont, Geri Matson, Sid Pond and colleagues, with an educational nohemi from [employer]. Thrive Questionnaire Date Thrive assessed: 11/05/24 I am a: Patient What is your living situation today?: I have a steady place to live Within the past 12 months, did the food you bought not last and you didn't have the money to get more?: Never true Within the past 12 months, did you worry whether your food would run out before you got money to buy more?: Never true Do you have trouble paying for medicines?: No Do you have trouble getting transportation to medical appointments?: No Do you have trouble paying your heating and electricity bill?: No Do you have trouble taking care of your child, family member or friend?: No Do you have trouble with day-to-day activities such as bathing, preparing meals, shopping, managing finances, etc.?: No Are you currently unemployed and looking for a job?: No Are you interested in more education?: No Please select the resources that you would like help with: None Currently or been in a relationship where the following occur: No concerns reported THRIVE Score: 0 AUDIT C Alcohol Use Questionnaire (AUDIT-C) 1. How often do you have a drink containing alcohol?: Monthly or less 2. How many drinks containing alcohol do you have on a typical day when you are drinking?: 1 or 2 3. How often do you have six or more drinks on one occasion?: Never Total Score: 1 WILFREDO-7 AMB Questionnaire WILFREDO-7 Date WILFREDO - 7 assessed: 11/12/24 Feeling nervous, anxious, or on edge: 0 = Not at all Not being able to stop or control worryin = Not at all Worrying too much about different things: 0 = Not at all Trouble relaxin = Not at all Being so restless that it is hard to sit still: 0 = Not at all Becoming easily annoyed or irritable: 0 = Not at all Feeling afraid as if something awful might happen: 0 = Not at all Total WILFREDO-7 score (0-4 normal; 5-9 mild; 10-14 moderate; 15-21 severe): 0 Source: Developed by Drs. Abran Dumont, Geri Matson, Sid Pond and colleagues, with an educational nohemi from [employer]. Review of Systems Const Denies body aches, Denies fatigue, Denies fever(s), Denies headache(s) and Denies weakness Eyes Details: She sees Dr. Flynn for her yearly diabetes retinopathy screening Denies change in vision ENT Denies dizziness, Denies headache(s), Denies nasal congestion and Denies nasal discharge Card Denies chest pain, Denies lightheadedness, Denies palpitations and Denies dyspnea Resp Denies chest congestion, Denies cough and Denies dyspnea GI Denies abdominal pain, Denies melena, Denies change in bowel habits, Denies GI cramping and Denies dyspepsia Denies hematuria and Denies dysuria Musc Reports no additional complaints Skin/Breast Denies lesions and Denies rash Neuro Denies dizziness, Denies headache(s), Denies focal weakness, Denies Sensory deficit (Neuro) and Denies weakness Psych Reports no additional complaints Endo Denies fatigue, Denies polydipsia and Denies palpitations Stu/Lymph Reports no additional complaints Aller/Immun Reports no additional complaints Physical exam (Primary Care) Vital Signs: Last Vital Signs Temp 98.6 F 06/17/25 13:34 Pulse 91 06/17/25 13:34 Resp 16 06/17/25 13:34 BP 136/60 06/17/25 13:34 Pulse Ox 97 06/17/25 13:34 Oxygen Delivery Method Room Air 06/17/25 13:34 BMI result Body Mass Index 28.0 Tobacco/Smoking Status: Tobacco use Status Tobacco use date assessed 06/17/25 06/17/25 13:27 Patient Tobacco Use Status Never used Tobacco 06/17/25 13:27 e-Cigarette/Vaping Use Never Used 06/17/25 13:27 PHQ-9: PHQ-9 Score PHQ-9: Total score 0 06/17/25 14:13 Depression Screening Interpretation: Negative Thrive Assessment: Date of Thrive Assessment Date Thrive assessed 11/05/24 06/17/25 13:27 Currently or been in a relationship where the following occur: No concerns reported Const General: comfortable and no acute distress Orientation/consciousness: patient oriented x3 HENMT Ears: external ears normal General nose exam: Normal external nose present Mouth: Normal oral and palatal mucosa present and moist mucous membranes Eyes General: appearance normal, both eyes and all related structures Neck Neck: Yes full ROM, Yes no lymphadenopathy and Yes supple Resp Effort & Inspection: normal respiratory effort and able to speak in complete sentences Auscultation: clear to auscultation bilaterally Cardio Rate: regular rate Rhythm: regular rhythm Heart sounds: S1 normal heart sound present and S2 normal heart sound present GI Inspection: Yes normal to inspection Palpation (GI): Soft to palpation, nontender and no masses General: Yes no CVA tenderness and Yes deferred (Followed by her OBGYN Dr. Johnson) Back/Spine/Pelvis Back: no CVA tenderness and No back tenderness Skin General skin exam: no rashes or lesions noted Neuro General: patient oriented x3, gait normal, tone normal, moves all extremities, Normal light touch and pain sensation and no focal motor deficits Cognition (Neuro): normal cognition Gait exam (Neuro): Normal gait present Motor exam (neuro): 5/5 motor strength present throughout Sensory Exam: No Sensory deficit (Neuro) Extrem General: Yes full ROM, Yes no joint enlargement, Yes no pedal edema, Yes no calf tenderness and Yes normal gait Psych Appearance: grossly normal Mental Status: mental status grossly normal Speech and movement: Normal speech and movement present Affect: normal affect Results Reviewed Results Reviewed: Name: Shanda Yancey Age/Sex: 64/F : 1960 Unit#: [id number] Attend Dr: Oumou Saenz MD Re06/16/25 Status: DEP [facility]F [facility] Disch: SPEC : [id number] RHONDA: 06/16/25 STATUS: COMP REQ : [id number] RECD: 06/16/25-[address]: Oumou Saenz MD COMP: 06/16/25-1113 ENTERED: 06/16/25-[address]: ORDERED: Met Prof Fast, AST, ALT, Lipid Panel Test Result Flag Reference Sodium 141 135-145 mmol/L Potassium 4.4 3.3-5.1 mmol/L CL 108 96-108 mmol/L CO2 27 22-29 mmol/L Gap 10 L 12-20 BUN 28 H 9-16 mg/dL Creat 1.05 0.5-1.4 mg/dL eGFR 53 Chronic Kidney Disease: Estimated GFR < 60 mL/min/1.73m2 Severe Kidney Disease: Estimated GFR < 15 mL/min/1.73m2 FBS 161 H 60-99 mg/dL A fasting glucose of 126 mg/dl or greater on more than one occasion is considered diagnostic of diabetes. CA 10.0 8.4-10.2 mg/dL AST (GOT) 20 5-31 U/L ALT (GPT) 11 0-31 U/L Triglyceride 129 <150 mg/dL Desirable Triglyceride: less than 150 mg/dL Borderline High Triglyceride 150-199 mg/dL High Triglyceride: 200-499 mg/dL Very High Triglyceride: greater than or equal to 5OO mg/dL Cholesterol 147 <200 mg/dL Desirable Cholesterol: less than 200 mg/dL Borderline High Cholesterol: 200-239 mg/dL High Cholesterol: greater than 239 mg/dL LDL Calculated 63 <100 mg/dL Desirable LDL: less than 100 mg/dL Near Optimal/Above Optimal LDL: 110-129 mg/dL Borderline High LDL: 130-159 mg/dL High LDL: 160-189 mg/dL Very High LDL: greater than or equal to 190 mg/dL HDL 59 >40 mg/dL Desirable HDL: greater than 40 mg/dL Note: This HDL assay may give artificially low results in patients with liver disease. Laboratory Tests 06/16/25 07:14 Estimat Average Glucose 160 Hemoglobin A1c % 7.2 H Urine Creatinine 72.44 Urine Microalbumin 70.0 Microalb/Creat Ratio 96.6 H Coding Level of Care Code Est Pt Level 4 (44835) Diagnoses Diabetes mellitus with microalbuminuria, without long-term current use of insulin E11.29; R80.9 Essential hypertension I10 Mixed dyslipidemia E78.2 Assessment & Plan Assessment & Plan (1) Diabetes mellitus with microalbuminuria, without long-term current use of insulin: Code(s): E11.29 - Type 2 diabetes mellitus with other diabetic kidney complication; R80.9 - Proteinuria, unspecified Category: Medical (2) Essential hypertension: Code(s): I10 - Essential (primary) hypertension Category: Medical (3) Mixed dyslipidemia: Code(s): E78.2 - Mixed hyperlipidemia Category: Medical Plan 1. Diabetes mellitus with microalbuminuria without long-term current use of insulin The patient's blood sugar is elevated, with a recent reading of 168 and a rise in A1c, which is noted to be affecting kidney function. This is likely secondary to poor diet during recent travel and significant life stressors. As the patient is tolerating Trulicity well without side effects, the plan is to continue the medication together with metformin a 1000 mg 1 tablet twice a day and Jardiance 25 mg daily in a.m.. The patient is encouraged to improve dietary habits and increase physical activity, such as walking. We will re-evaluate with blood work prior to the next follow-up on October 2025. 2. Hypertension The patient's blood pressure is stable at 138/60 mmHg. Plan is to continue amlodipine 5 mg daily and losartan 100 mg daily together with metoprolol succinate ER 50 mg at night 3. Mixed dyslipidemia Continue rosuvastatin 10 mg 1 tablet every other day. Repeat fasting lipids in on October 2025 prior to next visit The patient is due for a bone density screening, which will be ordered along with the next mammogram in September. The patient is advised that the next pneumonia vaccine is due at age 66 and should continue with annual eye exams. The colonoscopy is not due until 2026. We discussed the RSV vaccine and counseled caution around young children. A follow-up appointment is scheduled for November 24, with labs to be completed one week prior. Patient was informed and verbally consented to the use of an ambient scribe for clinic note documentation during this visit. Orders: Orders Hemoglobin A1c 10/30/25 I10 - Essential (primary) hypertension, E78.2 - Mixed hyperlipidemia, E11.29 - Type 2 diabetes mellitus with other diabetic kidney complication, R80.9 - Proteinuria, unspecified, E89.40 - Asymptomatic postprocedural ovarian failure Aspartate Amino Transferase 10/30/25 I10 - Essential (primary) hypertension, E78.2 - Mixed hyperlipidemia, E11.29 - Type 2 diabetes mellitus with other diabetic kidney complication, R80.9 - Proteinuria, unspecified, E89.40 - Asymptomatic postprocedural ovarian failure Alanine Aminotransferase 10/30/25 I10 - Essential (primary) hypertension, E78.2 - Mixed hyperlipidemia, E11.29 - Type 2 diabetes mellitus with other diabetic kidney complication, R80.9 - Proteinuria, unspecified, E89.40 - Asymptomatic postprocedural ovarian failure Vitamin D 25-OH Total 10/30/25 I10 - Essential (primary) hypertension, E78.2 - Mixed hyperlipidemia, E11.29 - Type 2 diabetes mellitus with other diabetic kidney complication, R80.9 - Proteinuria, unspecified, E89.40 - Asymptomatic postprocedural ovarian failure XR DEXA axial skeleton 06/17/25 Z13.820 - Encounter for screening for osteoporosis, Z78.0 - Asymptomatic menopausal state Basic Metabolic Panel Fasting 10/30/25 I10 - Essential (primary) hypertension, E78.2 - Mixed hyperlipidemia, E11.29 - Type 2 diabetes mellitus with other diabetic kidney complication, R80.9 - Proteinuria, unspecified, E89.40 - Asymptomatic postprocedural ovarian failure Lipid Panel 10/30/25 I10 - Essential (primary) hypertension, E78.2 - Mixed hyperlipidemia, E11.29 - Type 2 diabetes mellitus with other diabetic kidney complication, R80.9 - Proteinuria, unspecified, E89.40 - Asymptomatic postprocedural ovarian failure Microalbumin, Random (w Creat) 10/30/25 I10 - Essential (primary) hypertension, E78.2 - Mixed hyperlipidemia, E11.29 - Type 2 diabetes mellitus with other diabetic kidney complication, R80.9 - Proteinuria, unspecified, E89.40 - Asymptomatic postprocedural ovarian failure
[2025-06-17 13:34] VITALS: BP 136/60; PULSE 91; RESP 16; TEMP 37; O2SAT 97; BMI 28.0
== END 2025-06-17 14:36 | disposition home or self-care (01) ==
LOC: HO.HMCC 13:23
PROVIDERS: PCP Internal Medicine; Visit Provider Internal Medicine
DX: E11.29 Type 2 diabetes mellitus with other diabetic kidney complication (principal); R80.9 Proteinuria, unspecified; I10 Essential (primary) hypertension; E78.2 Mixed hyperlipidemia